=== PATIENT | male | born 1945 | race Caucasian/White ===

== ENCOUNTER 2021-01-31 11:05 | Outpatient (REF) | payer MEDICARE, SELFPAY ==
[2021-01-31 13:26] LABS: Blood Urea Nitrogen 45 mg/dL (9-16); Estimated Glomerular Filt Rate 37
== END 2021-01-31 11:06 | disposition home or self-care (01) ==
LOC: HO.LNP 11:05
PROVIDERS: Visit Provider Internal Medicine
DX: R79.89 Other specified abnormal findings of blood chemistry (principal)
CPT/HCPCS: 82565; 84520

== ENCOUNTER 2021-02-14 10:26 | Outpatient (REF) | payer MEDICARE, SELFPAY ==
[2021-02-14 11:58] LABS: Blood Urea Nitrogen 44 mg/dL (9-16); Estimated Glomerular Filt Rate 46
== END 2021-02-14 10:27 | disposition home or self-care (01) ==
LOC: HO.LNP 10:26
PROVIDERS: Visit Provider Internal Medicine
DX: R79.9 Abnormal finding of blood chemistry, unspecified (principal)
CPT/HCPCS: 82565; 84520

== ENCOUNTER 2021-03-18 10:28 | Outpatient (REF) | payer MEDICARE, SELFPAY ==
[2021-03-18 10:32] LABS: MANUAL DIFF FLAG NO
[2021-03-18 11:15] LABS: Basophils Percent Auto 0.6 % (0-2); Eosinophils Absolute Auto 0.2 X10*3/uL (0.0-0.4); Eosinophils Percent Auto 4.5 % (0-4); Hematocrit 33.3 % (42-52); Hemoglobin 10.7 g/dl (14.0-18.0); Imm Gran Abs Auto 0.02 X10*3/uL (0.00-0.03); Imm Gran Pct Auto 0.4 % (0.0-0.4); Lymphocytes Absolute Auto 0.7 X10*3/uL (1.2-4.9); Lymphocytes Percent Auto 13.9 % (20-40); Mean Corpuscular HGB Conc 32.1 g/dl (31.0-36.0); Mean Corpuscular Hemoglobin 26.7 pg (27.0-33.0); Mean Platelet Volume 11.4 fL (9.4-12.4); Monocytes Absolute Auto 0.5 X10*3/uL (0.1-1.2); Monocytes Percent Auto 9.2 % (2-11); Neutrophils Absolute Auto 3.8 X10*3/uL (2.0-8.3); Neutrophils Percent Auto 71.4 % (45-73); Platelet Count 165 X10*3/uL (160-400); Red Blood Count 4.01 X10*6/uL (4.60-5.80); Red Cell Distribution Width 15.9 % (11.0-16.0); White Blood Count 5.3 X10*3/uL (4.8-10.8)
[2021-03-18 11:54] LABS: Blood Urea Nitrogen 39 mg/dL (9-16); Estimated Glomerular Filt Rate 45; Iron 43 mcg/dL (45-160); Percent Iron Saturation 14 % (15-50); Total Iron Binding Capacity 312 mcg/dL (228-428); Unsaturated Iron Binding 269 ug/dL
== END 2021-03-18 10:29 | disposition home or self-care (01) ==
LOC: HO.LNP 10:28
PROVIDERS: Visit Provider Internal Medicine
DX: R79.89 Other specified abnormal findings of blood chemistry (principal); D50.9 Iron deficiency anemia, unspecified
CPT/HCPCS: 82565; 83540; 84520; 85025

== ENCOUNTER 2021-05-06 10:11 | Outpatient (REF) | payer MEDICARE, OTHER, SELFPAY ==
[2021-05-06 10:14] LABS: MANUAL DIFF FLAG NO
[2021-05-06 10:37] LABS: Basophils Percent Auto 0.5 % (0-2); Eosinophils Absolute Auto 0.3 X10*3/uL (0.0-0.4); Eosinophils Percent Auto 4.9 % (0-4); Hematocrit 35.5 % (42-52); Hemoglobin 11.1 g/dl (14.0-18.0); Imm Gran Abs Auto 0.02 X10*3/uL (0.00-0.03); Imm Gran Pct Auto 0.4 % (0.0-0.4); Lymphocytes Absolute Auto 0.9 X10*3/uL (1.2-4.9); Lymphocytes Percent Auto 16.8 % (20-40); Mean Corpuscular HGB Conc 31.3 g/dl (31.0-36.0); Mean Corpuscular Volume 86.4 fL (80-98); Monocytes Absolute Auto 0.4 X10*3/uL (0.1-1.2); Monocytes Percent Auto 7.9 % (2-11); Neutrophils Absolute Auto 3.9 X10*3/uL (2.0-8.3); Neutrophils Percent Auto 69.5 % (45-73); Platelet Count 166 X10*3/uL (160-400); Red Blood Count 4.11 X10*6/uL (4.60-5.80); Red Cell Distribution Width 15.9 % (11.0-16.0); White Blood Count 5.6 X10*3/uL (4.8-10.8)
[2021-05-06 11:18] LABS: Blood Urea Nitrogen 36 mg/dL (9-16); Estimated Glomerular Filt Rate 41; Iron 42 mcg/dL (45-160); Percent Iron Saturation 13 % (15-50); Total Iron Binding Capacity 322 mcg/dL (228-428); Unsaturated Iron Binding 280 ug/dL
== END 2021-05-06 10:12 | disposition home or self-care (01) ==
LOC: HO.LNP 10:11
PROVIDERS: Visit Provider Internal Medicine
DX: D50.9 Iron deficiency anemia, unspecified (principal)
CPT/HCPCS: 82565; 83540; 84520; 85025

== ENCOUNTER 2021-06-12 10:20 | Outpatient (REF) | payer MEDICARE, OTHER, SELFPAY ==
[2021-06-12 10:53] LABS: Alanine Aminotransferase 21 U/L (0-40); Albumin Level 4.2 g/dL (3.5-5.0); Alkaline Phosphatase 56 U/L (39-117); Aspartate Amino Transferase 15 U/L (5-37); Bilirubin Direct 0.2 mg/dL (0.0-0.5); Bilirubin Total 0.5 mg/dL (0.0-1.0); Cholesterol 106 mg/dL; HDL Cholesterol 40 mg/dL; LDL Cholesterol Calculated 50 mg/dl; Total Protein 6.3 g/dL (6.5-8.0); Triglycerides 81 mg/dL
== END 2021-06-12 10:21 | disposition home or self-care (01) ==
LOC: HO.LNP 10:20
PROVIDERS: Visit Provider Internal Medicine
DX: E78.00 Pure hypercholesterolemia, unspecified (principal); I10 Essential (primary) hypertension
CPT/HCPCS: 80061; 80076

== ENCOUNTER 2021-07-24 10:12 | Outpatient (REF) | payer MEDICARE, OTHER, SELFPAY ==
[2021-07-24 10:14] LABS: MANUAL DIFF FLAG NO
[2021-07-24 10:41] LABS: Basophils Percent Auto 0.5 % (0-2); Eosinophils Absolute Auto 0.3 X10*3/uL (0.0-0.4); Hematocrit 34.6 % (42-52); Hemoglobin 11.2 g/dl (14.0-18.0); Imm Gran Abs Auto 0.02 X10*3/uL (0.00-0.03); Imm Gran Pct Auto 0.4 % (0.0-0.4); Lymphocytes Percent Auto 18.5 % (20-40); Mean Corpuscular HGB Conc 32.4 g/dl (31.0-36.0); Mean Corpuscular Hemoglobin 28.2 pg (27.0-33.0); Mean Corpuscular Volume 87.2 fL (80-98); Monocytes Absolute Auto 0.5 X10*3/uL (0.1-1.2); Monocytes Percent Auto 8.6 % (2-11); Neutrophils Absolute Auto 3.6 X10*3/uL (2.0-8.3); Platelet Count 163 X10*3/uL (160-400); Red Blood Count 3.97 X10*6/uL (4.60-5.80); Red Cell Distribution Width 14.6 % (11.0-16.0); White Blood Count 5.5 X10*3/uL (4.8-10.8)
[2021-07-24 11:50] LABS: Blood Urea Nitrogen 35 mg/dL (9-16); Estimated Glomerular Filt Rate 45; Iron 44 mcg/dL (45-160); Percent Iron Saturation 16 % (15-50); Total Iron Binding Capacity 283 mcg/dL (228-428); Unsaturated Iron Binding 239 ug/dL
== END 2021-07-24 10:13 | disposition home or self-care (01) ==
LOC: HO.LNP 10:12
PROVIDERS: Visit Provider Internal Medicine
DX: N18.9 Chronic kidney disease, unspecified (principal); D50.9 Iron deficiency anemia, unspecified
CPT/HCPCS: 82565; 83540; 84520; 85025

== ENCOUNTER 2021-09-26 10:24 | Outpatient (REF) | payer MEDICARE, OTHER, SELFPAY ==
[2021-09-26 10:28] LABS: MANUAL DIFF FLAG NO
[2021-09-26 10:47] LABS: Basophils Percent Auto 0.5 % (0-2); Eosinophils Absolute Auto 0.4 X10*3/uL (0.0-0.4); Hematocrit 34.9 % (42.0-52.0); Hemoglobin 11.1 g/dl (14.0-18.0); Imm Gran Abs Auto 0.03 X10*3/uL (0.00-0.03); Imm Gran Pct Auto 0.5 % (0.0-0.4); Lymphocytes Absolute Auto 0.9 X10*3/uL (1.2-4.9); Lymphocytes Percent Auto 16.6 % (20-40); Mean Corpuscular HGB Conc 31.8 g/dl (31.0-36.0); Mean Corpuscular Hemoglobin 27.8 pg (27.0-33.0); Mean Corpuscular Volume 87.3 fL (80.0-98.0); Monocytes Absolute Auto 0.5 X10*3/uL (0.1-1.2); Monocytes Percent Auto 8.7 % (2-11); Neutrophils Absolute Auto 3.7 x10*3/uL (2.0-8.3); Neutrophils Percent Auto 66.7 % (45-73); Platelet Count 166 X10*3/uL (160-400); Red Cell Distribution Width 15.3 % (11.0-16.0); White Blood Count 5.5 X10*3/uL (4.8-10.8)
[2021-09-26 11:00] LABS: Blood Urea Nitrogen 44 mg/dL (9-16); Estimated Glomerular Filt Rate 43; Iron 34 mcg/dL (45-160); Percent Iron Saturation 12 % (15-50); Total Iron Binding Capacity 274 mcg/dL (228-428); Unsaturated Iron Binding 240 ug/dL
== END 2021-09-26 10:25 | disposition home or self-care (01) ==
LOC: HO.LNP 10:24
PROVIDERS: Visit Provider Internal Medicine
DX: N18.9 Chronic kidney disease, unspecified (principal); D50.9 Iron deficiency anemia, unspecified
CPT/HCPCS: 82565; 83540; 84520; 85025

== ENCOUNTER 2021-12-25 10:59 | Outpatient (REF) | payer MEDICARE, OTHER, SELFPAY ==
[2021-12-25 11:03] LABS: MANUAL DIFF FLAG NO
[2021-12-25 11:12] LABS: Basophils Percent Auto 0.4 % (0-2); Eosinophils Absolute Auto 0.3 X10*3/uL (0.0-0.4); Eosinophils Percent Auto 6.2 % (0-4); Hematocrit 37.3 % (42.0-52.0); Hemoglobin 11.7 g/dl (14.0-18.0); Imm Gran Abs Auto 0.02 X10*3/uL (0.00-0.03); Imm Gran Pct Auto 0.4 % (0.0-0.4); Lymphocytes Percent Auto 17.9 % (20-40); Mean Corpuscular HGB Conc 31.4 g/dl (31.0-36.0); Mean Corpuscular Hemoglobin 27.7 pg (27.0-33.0); Mean Corpuscular Volume 88.4 fL (80.0-98.0); Mean Platelet Volume 10.7 fL (9.4-12.4); Monocytes Absolute Auto 0.4 X10*3/uL (0.1-1.2); Neutrophils Absolute Auto 3.6 x10*3/uL (2.0-8.3); Neutrophils Percent Auto 67.1 % (45-73); Platelet Count 158 X10*3/uL (160-400); Red Blood Count 4.22 X10*6/uL (4.60-5.80); Red Cell Distribution Width 15.3 % (11.0-16.0); White Blood Count 5.4 X10*3/uL (4.8-10.8)
[2021-12-25 11:21] LABS: Appearance Urine CLEAR; Color Urine YELLOW; Glucose Urine UA >=1000 MG/DL (NEG); Leukocyte Esterase Urine NEG (NEG); Nitrite Urine NEG (NEG); Urine Blood NEG (NEG); Urine Ketones NEG (NEG); Urine Protein TRACE MG/DL (NEG-TRACE)
[2021-12-25 11:26] LABS: Alanine Aminotransferase 21 U/L (0-40); Albumin Level 4.2 g/dL (3.5-5.0); Alkaline Phosphatase 53 U/L (39-117); Anion Gap 10 (12-20); Aspartate Amino Transferase 15 U/L (5-37); Bilirubin Total 0.6 mg/dL (0.0-1.0); Blood Urea Nitrogen 49 mg/dL (9-16); Calcium 9.4 mg/dL (8.4-10.2); Carbon Dioxide 28 mmol/L (22-29); Chloride 109 mmol/L (96-108); Cholesterol 131 mg/dL; Estimated Glomerular Filt Rate 35; Glucose Fasting 106 mg/dL (60-99); HDL Cholesterol 37 mg/dL; Iron 61 mcg/dL (45-160); LDL Cholesterol Calculated 74 mg/dl; Percent Iron Saturation 20 % (15-50); Sodium 142 mmol/L (135-145); Total Iron Binding Capacity 298 mcg/dL (228-428); Total Protein 6.5 g/dL (6.5-8.0); Triglycerides 101 mg/dL; Unsaturated Iron Binding 237 ug/dL
[2021-12-25 11:36] LABS: Mucus Urine 1+ /LPF; RBC Urine 0 /HPF (0); Squamous Epithelial Cell Urine 1+ /LPF; WBC Urine 0 /HPF (0-4)
[2021-12-25 11:48] LABS: PSA,Total (Free>4and<10) 0.14 ng/mL (0.00-4.00)
== END 2021-12-25 11:00 | disposition home or self-care (01) ==
LOC: HO.LNP 10:59
PROVIDERS: PCP Internal Medicine; Visit Provider Internal Medicine
DX: E11.22 Type 2 diabetes mellitus with diabetic chronic kidney disease (principal); I12.9 Hypertensive chronic kidney disease with stage 1 through stage 4 chronic kidney disease, or unspecified chronic kidney disease; N18.9 Chronic kidney disease, unspecified; E78.00 Pure hypercholesterolemia, unspecified; D50.9 Iron deficiency anemia, unspecified; Z12.5 Encounter for screening for malignant neoplasm of prostate
CPT/HCPCS: 80053; 80061; 81001; 83540; 84153; 85025

== ENCOUNTER 2022-03-13 10:28 | Outpatient (REF) | payer MEDICARE, OTHER, SELFPAY ==
[2022-03-13 10:48] LABS: Blood Urea Nitrogen 41 mg/dL (9-16); Estimated Glomerular Filt Rate 37
== END 2022-03-13 10:29 | disposition home or self-care (01) ==
LOC: HO.LNP 10:28
PROVIDERS: Visit Provider Internal Medicine
DX: Z13.89 Encounter for screening for other disorder (principal)
CPT/HCPCS: 82565; 84520

== ENCOUNTER 2022-04-24 10:26 | Outpatient (REF) | payer MEDICARE, OTHER, SELFPAY ==
[2022-04-24 11:05] LABS: Blood Urea Nitrogen 45 mg/dL (9-16); Estimated Glomerular Filt Rate 37
== END 2022-04-24 10:27 | disposition home or self-care (01) ==
LOC: HO.LNP 10:26
PROVIDERS: Visit Provider Internal Medicine
DX: I48.0 Paroxysmal atrial fibrillation (principal); N18.9 Chronic kidney disease, unspecified; Z79.01 Long term (current) use of anticoagulants
CPT/HCPCS: 82565; 84520; 85610

== ENCOUNTER 2022-06-30 10:44 | Outpatient (REF) | payer MEDICARE, OTHER, SELFPAY ==
[2022-06-30 11:19] LABS: Estimated Average Glucose 100 mg/dL; Hemoglobin A1c % 5.1 %
[2022-06-30 11:29] LABS: Alanine Aminotransferase 20 U/L (0-40); Albumin Level 4.4 g/dL (3.5-5.0); Alkaline Phosphatase 58 U/L (39-117); Aspartate Amino Transferase 16 U/L (5-37); Bilirubin Direct 0.2 mg/dL (0.0-0.5); Bilirubin Total 0.5 mg/dL (0.0-1.0); Cholesterol 128 mg/dL; Glucose Fasting 102 mg/dL (60-99); HDL Cholesterol 39 mg/dL; LDL Cholesterol Calculated 72 mg/dl; Total Protein 6.5 g/dL (6.5-8.0); Triglycerides 85 mg/dL
[2022-06-30 12:42] LABS: Reflex LDLD? No
[2022-07-02 13:36] LABS: Blood Urea Nitrogen 34 mg/dL (9-16); Estimated Glomerular Filt Rate 37
== END 2022-06-30 10:45 | disposition home or self-care (01) ==
LOC: HO.LNP 10:44
PROVIDERS: Visit Provider Internal Medicine
DX: N18.30 Chronic kidney disease, stage 3 unspecified (principal); E78.00 Pure hypercholesterolemia, unspecified; E11.9 Type 2 diabetes mellitus without complications
CPT/HCPCS: 80061; 80076; 82565; 82947; 83036; 84520

== ENCOUNTER 2022-09-18 15:26 | Outpatient (REF) | payer MEDICARE, OTHER, SELFPAY ==
--- NOTE | ~2022-09-18 | XR_ITS ---
EXAMINATION: XR CHEST CLINICAL INFORMATION: Heart failure. Shortness of breath. COMPARISON: Previous chest x-ray most recent March 2018 TECHNIQUE: 2 views of the chest were obtained. FINDINGS: The cardiac silhouette is slightly enlarged. There may be pulmonary venous redistribution. No evidence of pulmonary edema. No pleural effusion. Degenerative changes of the spine. XR/XR chest 2V IMPRESSION: Enlarged cardiac silhouette and pulmonary venous redistribution. No evidence of pulmonary edema or pleural effusion.
== END 2022-09-18 15:27 | disposition home or self-care (01) ==
LOC: HO.XRAY 15:26
PROVIDERS: PCP Internal Medicine; Visit Provider Internal Medicine
DX: I50.22 Chronic systolic (congestive) heart failure (principal); R06.02 Shortness of breath
CPT/HCPCS: 71046

== ENCOUNTER 2022-09-24 10:39 | Outpatient (REF) | payer MEDICARE, OTHER, SELFPAY ==
[2022-09-24 11:01] LABS: Blood Urea Nitrogen 46 mg/dL (9-16); Estimated Glomerular Filt Rate 37
== END 2022-09-24 10:40 | disposition home or self-care (01) ==
LOC: HO.LNP 10:39
PROVIDERS: Visit Provider Internal Medicine
DX: N18.30 Chronic kidney disease, stage 3 unspecified (principal)
CPT/HCPCS: 82565; 84520

== ENCOUNTER 2022-10-12 11:27 | Outpatient (REF) | payer MEDICARE, OTHER, SELFPAY ==
[2022-10-12 12:54] LABS: Blood Urea Nitrogen 39 mg/dL (9-16); Estimated Glomerular Filt Rate 35
== END 2022-10-12 11:28 | disposition home or self-care (01) ==
LOC: HO.LNP 11:27
PROVIDERS: Visit Provider Internal Medicine
DX: N18.30 Chronic kidney disease, stage 3 unspecified (principal)
CPT/HCPCS: 82565; 84520

== ENCOUNTER 2022-11-19 10:50 | Outpatient (REF) | payer MEDICARE, OTHER, SELFPAY ==
[2022-11-19 11:19] LABS: Blood Urea Nitrogen 35 mg/dL (9-16); Estimated Glomerular Filt Rate 38
== END 2022-11-19 10:51 | disposition home or self-care (01) ==
LOC: HO.LNP 10:50
PROVIDERS: PCP Internal Medicine; Visit Provider Internal Medicine
DX: N18.9 Chronic kidney disease, unspecified (principal)
CPT/HCPCS: 82565; 84520

== ENCOUNTER 2022-12-31 10:48 | Outpatient (REF) | payer MEDICARE, OTHER, SELFPAY ==
[2022-12-31 11:13] LABS: MANUAL DIFF FLAG NO
[2022-12-31 11:37] LABS: Appearance Urine Clear; Color Urine Yellow; Glucose Urine UA 250 mg/dL (Negative); Leukocyte Esterase Urine Negative (Negative); Nitrite Urine Negative (Negative); PH 5.5 (5.0-9.0); Urine Blood Negative (Negative); Urine Ketones Negative (Negative); Urine Protein Negative (Neg-Trace)
[2022-12-31 11:44] LABS: Bacteria Urine None Seen (None Seen); Estimated Average Glucose 111 mg/dL; Hemoglobin A1c % 5.5 %; Hyaline Casts Urine 0-2 /LPF (0-2); RBC Urine 0-2 /HPF (0-2); Squamous Epithelial Cell Urine 0-2 /HPF (0-2); WBC Urine 0-5 /HPF (0-5)
[2022-12-31 11:46] LABS: Basophils Percent Auto 0.5 % (0-2); Eosinophils Absolute Auto 0.3 X10*3/uL (0.0-0.4); Eosinophils Percent Auto 5.8 % (0-4); Hematocrit 45.1 % (42.0-52.0); Hemoglobin 14.4 g/dl (14.0-18.0); Imm Gran Abs Auto 0.02 X10*3/uL (0.00-0.03); Imm Gran Pct Auto 0.3 % (0.0-0.4); Lymphocytes Absolute Auto 1.2 X10*3/uL (1.2-4.9); Lymphocytes Percent Auto 19.7 % (20-40); Mean Corpuscular HGB Conc 31.9 g/dl (31.0-36.0); Mean Corpuscular Hemoglobin 28.6 pg (27.0-33.0); Mean Corpuscular Volume 89.7 fL (80.0-98.0); Mean Platelet Volume 10.7 fL (9.4-12.4); Monocytes Absolute Auto 0.5 X10*3/uL (0.1-1.2); Monocytes Percent Auto 8.6 % (2-11); Neutrophils Absolute Auto 3.8 x10*3/uL (2.0-8.3); Neutrophils Percent Auto 65.1 % (45-73); Platelet Count 154 X10*3/uL (160-400); Red Blood Count 5.03 X10*6/uL (4.60-5.80); Red Cell Distribution Width 15.4 % (11.0-16.0); White Blood Count 5.8 X10*3/uL (4.8-10.8)
[2022-12-31 12:16] LABS: Alanine Aminotransferase 26 U/L (0-40); Albumin Level 4.2 g/dL (3.5-5.0); Alkaline Phosphatase 54 U/L (39-117); Anion Gap 14 (12-20); Aspartate Amino Transferase 17 U/L (5-37); Bilirubin Total 0.7 mg/dL (0.0-1.0); Blood Urea Nitrogen 46 mg/dL (9-16); Calcium 9.1 mg/dL (8.4-10.2); Carbon Dioxide 28 mmol/L (22-29); Chloride 109 mmol/L (96-108); Cholesterol 144 mg/dL; Estimated Glomerular Filt Rate 34; Glucose Fasting 111 mg/dL (60-99); HDL Cholesterol 49 mg/dL; Iron 63 mcg/dL (45-160); LDL Cholesterol Calculated 79 mg/dl; PSA,Total (Free>4and<10) 0.14 ng/mL (0.00-4.00); Percent Iron Saturation 23 % (15-50); Potassium 4.8 mmol/L (3.3-5.1); Sodium 146 mmol/L (135-145); Total Iron Binding Capacity 272 mcg/dL (228-428); Total Protein 6.4 g/dL (6.5-8.0); Triglycerides 81 mg/dL; Unsaturated Iron Binding 209 ug/dL
[2022-12-31 12:45] LABS: Creatinine Urine 29.94 mg/dL; Microalbum/Creatinine Ratio Ur 80.1 ug/mg cr
== END 2022-12-31 10:49 | disposition home or self-care (01) ==
LOC: HO.LNP 10:48
PROVIDERS: Visit Provider Internal Medicine
DX: E11.40 Type 2 diabetes mellitus with diabetic neuropathy, unspecified (principal); I48.0 Paroxysmal atrial fibrillation; E78.00 Pure hypercholesterolemia, unspecified; E11.22 Type 2 diabetes mellitus with diabetic chronic kidney disease; I13.0 Hypertensive heart and chronic kidney disease with heart failure and stage 1 through stage 4 chronic kidney disease, or unspecified chronic kidney disease; I50.22 Chronic systolic (congestive) heart failure; D50.9 Iron deficiency anemia, unspecified; N18.30 Chronic kidney disease, stage 3 unspecified; Z12.5 Encounter for screening for malignant neoplasm of prostate
CPT/HCPCS: 80053; 80061; 81001; 82043; 83036; 83540; 84153; 85025

== ENCOUNTER 2023-03-31 08:38 | Outpatient (REF) | payer MEDICARE, BC, SELFPAY ==
--- NOTE | 2023-03-31 08:43 | EMG_ITS ---
Please see scanned EMG / Nerve Conduction Report. MTDD
== END 2023-03-31 08:39 | disposition home or self-care (01) ==
LOC: HO.NEURO 08:38
PROVIDERS: Visit Provider Internal Medicine
DX: G56.01 Carpal tunnel syndrome, right upper limb (principal)
CPT/HCPCS: 95885; 95910

== ENCOUNTER 2023-04-08 11:11 | Outpatient (REF) | payer MEDICARE, OTHER, SELFPAY ==
[2023-04-08 12:44] LABS: Blood Urea Nitrogen 40 mg/dL (9-16); Estimated Glomerular Filt Rate 35
== END 2023-04-08 11:12 | disposition home or self-care (01) ==
LOC: HO.LNP 11:11
PROVIDERS: Visit Provider Internal Medicine
DX: N18.9 Chronic kidney disease, unspecified (principal)
CPT/HCPCS: 82565; 84520

== ENCOUNTER 2023-07-09 11:35 | Outpatient (REF) | payer MEDICARE, OTHER, SELFPAY ==
[2023-07-09 12:44] LABS: Cholesterol 128 mg/dL (<200); HDL Cholesterol 38 mg/dL (>40); LDL Cholesterol Calculated 69 mg/dL (<100); Triglycerides 105 mg/dL (<150)
[2023-07-09 12:48] LABS: Estimated Average Glucose 103 mg/dL; Hemoglobin A1c % 5.2 % (<6.0)
[2023-07-09 12:54] LABS: Alanine Aminotransferase 19 U/L (0-40); Albumin Level 4.2 g/dL (3.5-5.0); Alkaline Phosphatase 49 U/L (39-117); Aspartate Amino Transferase 16 U/L (5-37); Bilirubin Direct 0.2 mg/dL (0.0-0.5); Bilirubin Total 0.5 mg/dL (0.0-1.0); Glucose Fasting 108 mg/dL (60-99); Total Protein 6.5 g/dL (6.5-8.0)
[2023-07-09 16:33] LABS: Reflex LDLD? No
== END 2023-07-09 11:36 | disposition home or self-care (01) ==
LOC: HO.LNP 11:35
PROVIDERS: Visit Provider Internal Medicine
DX: E11.40 Type 2 diabetes mellitus with diabetic neuropathy, unspecified (principal); E78.00 Pure hypercholesterolemia, unspecified
CPT/HCPCS: 80061; 80076; 82947; 83036

== ENCOUNTER 2023-12-10 13:44 | Outpatient (REF) | payer MEDICARE, OTHER, SELFPAY ==
[2023-12-10 14:13] LABS: Appearance Urine Clear; Color Urine Yellow; Glucose Urine UA 250 mg/dL (Negative); Leukocyte Esterase Urine Negative (Negative); Nitrite Urine Negative (Negative); Urine Blood Negative (Negative); Urine Ketones Negative (Negative); Urine Protein Negative (Neg-Trace)
[2023-12-10 14:18] LABS: Bacteria Urine None Seen (None Seen); Hyaline Casts Urine 0-2 /LPF (0-2); RBC Urine 0-2 /HPF (0-2); Squamous Epithelial Cell Urine 0-2 /HPF (0-2); WBC Urine 0-5 /HPF (0-5)
== END 2023-12-10 13:45 | disposition home or self-care (01) ==
LOC: HO.LNP 13:44
PROVIDERS: Visit Provider Internal Medicine
DX: R31.9 Hematuria, unspecified (principal); R30.0 Dysuria; R35.0 Frequency of micturition
CPT/HCPCS: 81001; 87086

== ENCOUNTER 2024-01-20 11:42 | Outpatient (REF) | payer MEDICARE, OTHER, SELFPAY ==
[2024-01-20 12:17] LABS: Potassium 4.4 mmol/L (3.3-5.1)
== END 2024-01-20 11:43 | disposition home or self-care (01) ==
LOC: HO.LNP 11:42
PROVIDERS: Visit Provider Internal Medicine
DX: E87.5 Hyperkalemia (principal)
CPT/HCPCS: 84132

== ENCOUNTER 2024-03-14 11:06 | Outpatient (REF) | payer MEDICARE, OTHER, SELFPAY ==
[2024-03-14 11:53] LABS: Potassium 4.5 mmol/L (3.3-5.1)
== END 2024-03-14 11:07 | disposition home or self-care (01) ==
LOC: HO.LNP 11:06
PROVIDERS: Visit Provider Internal Medicine
DX: E87.5 Hyperkalemia (principal)
CPT/HCPCS: 84132

== ENCOUNTER 2024-03-15 08:57 | Outpatient (REF) | payer MEDICARE, OTHER, SELFPAY ==
--- NOTE | ~2024-03-15 | NM_ITS ---
EXAMINATION: NM BONE SCAN OF THE WHOLE BODY CLINICAL INFORMATION: History of prostate cancer. COMPARISON: No existing relevant imaging study available. TECHNIQUE: Multiple gamma scintillation camera images of the whole body were performed 3.25 hours following the intravenous administration of 36 mCi Tc-99m MDP. FINDINGS: In the head, no suspicious focal lesion. In the thoracic cage and upper extremities, no suspicious focal lesion. In the spine, no suspicious focal lesion. In the pelvis, no suspicious focal lesion. In the lower extremities, increased tracer avidity at both mid foot (left greater than right) likely represent posttraumatic and/or arthritic changes. No other definite bony abnormalities are noted. The urinary bladder and faint visualization of both kidneys are noted. NM/NM bone scan whole body IMPRESSION: No definite scintigraphic evidence of osseous metastasis. Follow-up PSMA PET CT scan however may be considered for further clarification, if clinically appropriate (more sensitive and specific).
== END 2024-03-15 08:58 | disposition home or self-care (01) ==
LOC: HO.MRI 08:57
PROVIDERS: PCP Internal Medicine; Visit Provider Internal Medicine
DX: K86.9 Disease of pancreas, unspecified (principal); Z85.46 Personal history of malignant neoplasm of prostate; M89.8X8 Other specified disorders of bone, other site
CPT/HCPCS: 78306; A9503

== ENCOUNTER 2024-07-07 11:10 | Outpatient (REF) | payer MEDICARE, OTHER, SELFPAY ==
[2024-07-07 11:36] LABS: Estimated Average Glucose 105 mg/dL; Hemoglobin A1c % 5.3 % (<6.0)
[2024-07-07 11:46] LABS: Alanine Aminotransferase 24 U/L (0-40); Alkaline Phosphatase 67 U/L (39-117); Aspartate Amino Transferase 18 U/L (5-37); Bilirubin Direct 0.2 mg/dL (0.0-0.5); Bilirubin Total 0.5 mg/dL (0.0-1.0); Cholesterol 120 mg/dL (<200); Glucose Fasting 97 mg/dL (60-99); HDL Cholesterol 40 mg/dL (>40); LDL Cholesterol Calculated 67 mg/dL (<100); Total Protein 6.4 g/dL (6.5-8.0); Triglycerides 65 mg/dL (<150)
[2024-07-07 14:20] LABS: Reflex LDLD? No
== END 2024-07-07 11:11 | disposition home or self-care (01) ==
LOC: HO.LNP 11:10
PROVIDERS: Visit Provider Internal Medicine
DX: E78.00 Pure hypercholesterolemia, unspecified (principal); E11.9 Type 2 diabetes mellitus without complications
CPT/HCPCS: 80061; 80076; 82947; 83036

== ENCOUNTER 2025-01-29 10:31 | Outpatient (REF) | payer MEDICARE, OTHER, SELFPAY ==
[2025-01-29 10:37] LABS: MANUAL DIFF FLAG NO
[2025-01-29 11:05] LABS: Appearance Urine Clear; Color Urine Yellow; Glucose Urine UA 500 mg/dL (Negative); Leukocyte Esterase Urine Negative (Negative); Nitrite Urine Negative (Negative); Specific Gravity - Urine 1.025 (1.005-1.025); UMIC TRIGGER UACC YES; Urine Blood Negative (Negative); Urine Ketones Trace mg/dL (Negative); Urine Protein 30 (1+) mg/dL (Neg-Trace)
[2025-01-29 11:07] LABS: Basophils Percent Auto 0.6 % (0-2); Eosinophils Absolute Auto 0.2 X10*3/uL (0.0-0.4); Eosinophils Percent Auto 2.4 % (0-4); Hematocrit 44.1 % (42.0-52.0); Hemoglobin 13.9 g/dl (14.0-18.0); Imm Gran Abs Auto 0.05 X10*3/uL (0.00-0.03); Imm Gran Pct Auto 0.7 % (0.0-0.4); Lymphocytes Absolute Auto 1.2 X10*3/uL (1.2-4.9); Lymphocytes Percent Auto 17.5 % (20-40); Mean Corpuscular HGB Conc 31.5 g/dl (31.0-36.0); Mean Corpuscular Hemoglobin 28.4 pg (27.0-33.0); Mean Corpuscular Volume 90.2 fL (80.0-98.0); Mean Platelet Volume 10.7 fL (9.4-12.4); Monocytes Absolute Auto 0.5 X10*3/uL (0.1-1.2); Monocytes Percent Auto 7.5 % (2-11); Neutrophils Absolute Auto 4.8 x10*3/uL (2.0-8.3); Neutrophils Percent Auto 71.3 % (45-73); Platelet Count 142 X10*3/uL (160-400); Red Blood Count 4.89 X10*6/uL (4.60-5.80); White Blood Count 6.8 X10*3/uL (4.8-10.8)
[2025-01-29 11:10] LABS: Bacteria Urine None Seen (None Seen); Hyaline Casts Urine 0-2 /LPF (0-2); RBC Urine 0-2 /HPF (0-2); Squamous Epithelial Cell Urine 0-2 /HPF (0-2); WBC Urine 0-5 /HPF (0-5)
[2025-01-29 11:41] LABS: PSA,Total (Free>4and<10) 0.14 ng/mL (0.00-4.00)
[2025-01-29 12:39] LABS: Alanine Aminotransferase 22 U/L (0-40); Albumin Level 4.1 g/dL (3.5-5.0); Alkaline Phosphatase 57 U/L (39-117); Anion Gap 13 (12-20); Aspartate Amino Transferase 17 U/L (5-37); Bilirubin Total 0.5 mg/dL (0.0-1.0); Blood Urea Nitrogen 51 mg/dL (9-16); Calcium 8.8 mg/dL (8.4-10.2); Carbon Dioxide 27 mmol/L (22-29); Chloride 112 mmol/L (96-108); Cholesterol 141 mg/dL (<200); Estimated Glomerular Filt Rate 36; Glucose Fasting 99 mg/dL (60-99); HDL Cholesterol 46 mg/dL (>40); LDL Cholesterol Calculated 83 mg/dL (<100); Potassium 4.7 mmol/L (3.3-5.1); Sodium 147 mmol/L (135-145); Total Protein 6.7 g/dL (6.5-8.0); Triglycerides 62 mg/dL (<150)
== END 2025-01-29 10:32 | disposition home or self-care (01) ==
LOC: HO.LNP 10:31
PROVIDERS: Visit Provider Internal Medicine
DX: E11.22 Type 2 diabetes mellitus with diabetic chronic kidney disease (principal); I12.9 Hypertensive chronic kidney disease with stage 1 through stage 4 chronic kidney disease, or unspecified chronic kidney disease; N18.30 Chronic kidney disease, stage 3 unspecified; E78.00 Pure hypercholesterolemia, unspecified; Z12.5 Encounter for screening for malignant neoplasm of prostate
CPT/HCPCS: 80053; 80061; 81001; 84153; 85025

== ENCOUNTER 2025-08-10 10:32 | Outpatient (REF) | payer MEDICARE, OTHER, SELFPAY ==
--- OUTSIDE RECORDS SUMMARY | 2023-12-16 20:00 | XMS_ITS | Continuity of Care Document ---
Author Organization [facility] [employer] [facility] Address [address] [place] [phone] Phone Care Team Providers Care Patrol Deputy Sheriff Name Role Phone Bridger VILLANUEVA, Lui Unavailable Unavailable Procedures Procedure Date PRQ CARD STENT W/ANGIO 1 VSL CORONARY ANGIO W/LEFT HEART CATH 2023 CORONARY ANGIO W/LEFT HEART CATH 2023 INTRAVASC US, HEART ADD-ON MODERATE SEDATION 10-22 MIN PRQ CARD STENT W/ANGIO 1 VSL ECHO 2D W/DOPPLER INITIAL HOSPITAL CARE SUBSEQUENT HOSPITAL CARE SUBSEQUENT HOSPITAL CARE ECHO 2D W/DOPPLER STRESS ECHO INCL STRESS TEST OFFICE/OUTPATIENT VISIT, EST CHEST X-RAY ELECTROCARDIOGRAM, COMPLETE OFFICE/OUTPATIENT VISIT, EST ECHO 2D W/DOPPLER OFFICE/OUTPATIENT VISIT, NEW ELECTROCARDIOGRAM, COMPLETE ECG MONITOR/REPORT, 24 HRS HEART IMAGE (3D), MULTIPLE HEART WALL MOTION ADD-ON HEART FUNCTION ADD-ON CARDIOVASCULAR STRESS TEST CARDIOVASCULAR STRESS TEST Advance Directives Directive Yes / No Effective Date File Name No Information Encounters Encounter Description Practice Location Reason(s) For Visit Diagnoses Date Provider Providers Copied on Encounter [facility], [address] [place] [address], [id number], [place] tel:[phone] [facility] IP No Information Bridger Poe. [address] [place] [address], [id number], [place]. tel:[phone] Referring Provider: Lui See, [address] [place] [address], [address] [place] [address] . tel:[phone] [facility], [address] [place] [address], [id number], [place] tel:[phone] [facility] IP No Information Elidia Viveros. [address] [place] [address], [id number], [place]. tel:[phone] Referring Provider: José Miguel Velez, [address] [place], [address]. tel:[phone] [facility]IAL [facility] CARE [facility], [address] [place] [address], [id number], [place] tel:[phone] [facility] IP No Information Aries Charles. [address] [place] [address], [id number], [place]. tel:[phone] Referring Provider: José Miguel Velez, [address] [place], [address]. tel:[phone] [facility] Heart [employer] [facility], [address] [place] [address], [id number], [place] tel:[phone] [facility] IP No Information Alok Salas. [address] [place] [address], [id number], [place]. tel:[phone] Referring Provider: Paramjit Arita, [facility] [address], [place], [address]. tel:[phone] [facility], [address] [place] [address], [id number], [place] tel:[phone] [facility] No Information Jessica Trevino. [address] [place] [address], [id number], . tel:[phone] Referring Provider: Shasta Mcclellan, [address] [place], [address]. tel:[phone] OFFICE/OUTPAT IENT VISIT, [facility], [address] [place] [address], [id number], [place] tel:[phone] Main Office No Information No Information OFFICE/OUTPAT IENT VISIT, [facility], [address] [place] [address], [id number], tel:[phone] Main Office No Information Miguel Samayoa. [address] [place] [address], [id number], [place]. tel:[phone] Referring Provider: Danita Rivera, [address] [place] [address], [id number]. tel:[phone] [facility], [address] [place] [address], [id number], [place] tel:[phone] [facility] No Information Vitor Carbajal. [address] [place] [address], [id number], [place]. tel:[phone] OFFICE/OUTPAT IENT VISIT, [facility], [address] [place] [address], [id number], [place] tel:[phone] Main Office No Information No Information Referring Provider: Shasta Mcclellan, [address] [place], [address]. tel:[phone] [facility], [address] [place] [address], [id number], [place] tel:[phone] Main Office No Information No Information Referring Provider: Shasta Mcclellan, [address] [place], [address]. tel:[phone] [facility], [facility], [address] [place] [address], [id number], tel:[phone] [facility] OP No Information Haresh Carbajal. [address] [place] [address], [id number], . tel:[phone] Referring Provider: Darvin Stokes, [address] [facility], [place], [address]. tel:[phone] Family History Family Member Type Diagnosis Age At Onset No Information Payers Payer name Insurance type Covered green party ID Authoriza tion(s) [place] Medicare Part B Cl aims Primary MB [id number] [facility] Insurance [id number] Social History Type Description Quantity Date Captured Comments Sex Male Smoking Status No Information Chief Complaint And Reason For Visit No Information Reason For Referral Reason For Referral No Information History Of Present Illness Encounter Date Complaint History Of Prese nt Illness No Information Functional Status Date Functional Assessmen t No Information Instructions Date Instruction Additional Infor mation No Information Assessments Type Assessment Date No Information Patient Care Teams Name Effective Dates (start - stop) Status Members No Information
--- OUTSIDE RECORDS SUMMARY | 2025-06-11 07:20 | XMS_ITS ---
Author Organization Domenic Beckham MD Address [address] [place] [phone] Care Team Providers Care Driver Trainee Name Role Phone Domenic Beckham Primary Care Provider [phone] REASON FOR VISIT CXR Encounters Encounter Location Date Provider Diagnosis Domenic Beckham MD [address] [place] [phone] 06/11/2025 Domenic Beckham Pneumonia J18.9 Assessments Encounter Date Diagnosis (ICD Code) Assessment Notes Treatment Notes Treatment Clinical Notes Section Notes 06/11/2025 Pneumonia (ICD-10 - J18.9) Order made and mailed to the patient to be done in 1 week. Plan Of Treatment Treatment Notes Assessment Notes Pneumonia Order made and salo d to the patient to be done in 1 week. Pending Test Test Name Order Date XR chest 2V 06/11/2025 Next Appt Details Provider Name:Domenic Devine ier, 10/26/2025 10:00:00 AM, [address], [address], [place], [id number], Provider Name:Domenic Devine ier, 02/04/2026 08:00:00 AM, [address], [address], [place], [place], [id number], Provider Name:Domenic Devine ier, 02/11/2026 02:30:00 PM, [address], [address], [place], [place], [phone], Progress Notes * Owen LICEA ADOB:1945 (80 yo M)Acc No.[id number]:06/11/2025 Patient: Owen COTTER :1945 A ge:80 Y S ex:Male Address:[address] [place] [address] [place] [address] Subjective: * Chief Complaints: * C XR * Medical History: * Surgical History: * Hospitalization/Major Diagno stic Procedure: * Medications: Objective: * Vitals: * Physical Examination: Assessment: * Assessment: 1. Vahid shore - J18.9 Plan: * Treatment: * Procedure Codes: * true * Date: Generated for Benigno coelho/Bernardo/eTanderssmitting on: 0 08/10/2025 12:02 PM EDT
--- OUTSIDE RECORDS SUMMARY | 2025-06-14 12:27 | XMS_ITS ---
Author Organization Domenic Beckham MD Address [address] [place] [phone] Care Team Providers Care Delivery Lead Name Role Phone Domenic Beckham Primary Care Provider [phone] REASON FOR VISIT Chest Xray Encounters Encounter Location Date Provider Diagnosis Domenic Beckham MD [address] [place], [place] [phone] 06/14/2025 Domenic Beckham Plan Of Treatment Next Appt Details Provider Name:Domenic garcia, 10/26/2025 10:00:00 AM, [address], [address], [place], [place], [phone], Provider Name:Domenic garcia, 02/04/2026 08:00:00 AM, [address], [address], [place], [place], [phone], Provider Name:Domenic Devine jose, 02/11/2026 02:30:00 PM, [address], [address], [place], [place], [phone], Progress Notes * Owen LICEA ADOB:1945 (80 yo M)Acc No.[id number]:06/14/2025 Patient: Owen COTTER A :1945 A ge:80 Y S ex:Male Address:[address] [facility] [place] [address] * true * Date: Generated for Benigno coelho/Bernardo/Inezsmitting on: 0 08/10/2025 12:03 PM EDT
--- OUTSIDE RECORDS SUMMARY | 2025-06-15 10:15 | XMS_ITS ---
Author Organization Domenic Beckham MD Address [address] [place] [phone] Care Team Providers Care Head Waitress Name Role Phone Domenic Beckham Primary Care Provider Allergies Allergen (clinical drug ingredient) Drug/Non Drug Allergy documented on EMR Reaction Allergy Type Onset Date Status seasonal allergies; pollen and molds, cats (uncoded) sneezing; itchy watery eyes Allergy Active Results Component Value Reference Range Notes Glucose, finger stick Reviewed date:06/15/2025 02:15:52 PM Interpretation: Performing Lab: Notes/Report: Value 114 REASON FOR VISIT F/U ERV Pneumonia Medications Medication SIG (Take, Route, Frequency, Duration) Notes Start Date End Date Status Combivent Respimat 20-100 MCG/ACT 1 puff Inhalation Four times a day Not-Taking Fluticasone Propionate 50 MCG/ACT INHALE 2 SPRAYS NASALLY EVERY DAY DIRECTED for 29 Not-Taking Furosemide 40 MG 1 tablet Orally Once a day Active Amiodarone HCl 200 MG 1 tablet Orally On ce a day Active Synjardy XR 12.5-1000 MG 1 tab Orally On ce a day Active Cyclobenzaprine HCl 10 MG 1 tablet as ne eded Orally Three times a day for 10 days Not-Taking Ibuprofen 800 MG 1 tablet as needed Orally TID Not-Taking Ondansetron 4 MG 1 tablet on the ue and allow to dissolve Orally Once a day Not-Taking Vitamin D 1000 UNIT 1 tablet Orally Once a day Not-Taking Atorvastatin Calcium 40 MG TAKE 1 TABLET BY MOUTH EVERY DAY for 90 Active Iron 325 (65 Fe) MG 1 tablet Once a day Active Lisinopril 5 MG TAKE 1 TABLET BY LESTER TH EVERY DAY Active Warfarin Sodium 5 MG TAKE 2 TABLETS BY MOUTH EVERY DAY Active Ventolin HFA 108 (90 Base) MCG/ACT 1 puff as needed Inhalation every 4 hrs for 30 days 05/25/2025 Active Furosemide 20 MG TAKE 2 TABLETS BY MOUTH EVERY DAY for 90 Active Gabapentin 300 MG TAKE 2 CAPSULES BY MOUTH AT BEDTIME ORALLY ONCE A DAY 90 DAYS for 90 Active Ventolin HFA 108 (90 Base) MCG/ACT INHALE 2 PUFFS BY MOUTH EVERY 4-6 HOURS NEEDED for 17 Active Benefiber - 1 tablespoon in 8 ounces of water Orally once a day Active Metoprolol Succinate ER 25 MG 1 tablet Orally Once a day Active Magnesium 250 MG 1 tablet with a meal Orally Once a day Active Mupirocin 2 % 1 application Externally Twice a day for 5 day(s) Active Vitamin B Complex-C 500 mgs as directed Orally Active Clobetasol Propionate 0.05 % 1 application Externally Twice a day for 10 day(s) Active Vitamin C 500 MG 2 tablets Orally onc e a day Active Problems Problem Type SNOMED Code ICD Code Onset Dates Problem Status W/U Status Risk Notes Problem Congestive heart failure (22520653) CHF (congestive heart failure) (I50.9) Active confirmed Vital Signs Blood pressure systolic 122 mm Hg 06/15/20 25 Blood pressure diastolic 74 mm Hg 025 Height 66.5 in 06/15/2025 Weight 217 lbs 06/15/2025 BMI 34.5 kg/m2 06/15/2025 weight is dwn 13 pounds [facility] e 05-10-25 Encounters Encounter Location Date Provider Diagnosis Domenic Beckham MD [address] [place] [phone] 06/15/2025 Domenic Beckham Type 2 diabetes mellitus with diabetic neuropathy E11.40 ; CHF (congestive heart failure) I50.9 and Back pain M54.9 Assessments Encounter Date Diagnosis (ICD Code) Assessment Notes Treatment Notes Treatment Clinical Notes Section Notes 06/15/2025 Type 2 diabetes mellitus with diabetic neuropathy (ICD-10 - E11.40) 06/15/2025 CHF (congestive heart failure) (ICD-10 - I50.9) is doing well at present. will go back to his previous dose of lasix 06/15/2025 Back pain (ICD-10 - M54.9) is going to get an injection in spine soon Plan Of Treatment Medication Medication Name Sig Start Date Stop Date Notes Furosemide 40 MG 1 tablet Orally Once a day Amiodarone HCl 200 MG 1 tablet Orally Once a day Synjardy XR 12.5-1000 MG 1 tab Orally Once a day Treatment Notes Assessment Notes CHF (congestive heart failure) is doing well at present. will go back to his previous dose of lasix Back pain is going to get an i njection in spine soon Next Appt Details Provider Name:Domenic garcia, 10/26/2025 10:00:00 AM, [address] [place] [address], [address], [phone], Provider Name:Domenic garcia, 02/04/2026 08:00:00 AM, [address] [place] [address], [address], [phone], Provider Name:Domenic garcia, 02/11/2026 02:30:00 PM, [address] [place] [address], [phone], Progress Notes * Owen LICEA ADOB:1945 (80 yo M)Acc No.[id number]:06/15/2025 Progress Notes Patient: Owen COTTER Provider: Sybil Beckham MD :1945 A ge:80 Y S ex:Male Date:06/15/2025 Address:[address], [facility] Subjective: * Chief Complaints: * F /U ERV Pneumonia * HPI: S ymptom(s): patient is a 80 yo male here for followup from recent ER visit. * ROS: G eneral/Constitutional: Denies C hills. D enies F atigue. D enies F ever. D enies H eadache. E NT: Denies S ore throat. R espiratory: Denies C hest pain. A dmits C ough. A dmits?Shortness of breath at rest. A dmits S hortness of breath with exertion. G astrointestinal: Denies D iarrhea. D enies N ausea. * Medical History: * Surgical History: * Hospitalization/Major Diagno stic Procedure: * Medications: T akingFurosemide 40 MG Tablet 1 tablet Orally Once a day Mupirocin 2 % Ointment 1 application Externally Twice a day Clobetasol Propionate 0.05 % Cream 1 application Externally Twice a day Vitamin B Complex-C 500 mgs Capsule as directed Orally Vitamin C 500 MG Tablet 2 tablets Orally once a day Magnesium 250 MG Tablet 1 tablet with a meal Orally Once a day Benefiber - Powder 1 tablespoon in 8 ounces of water Orally once a day Ventolin HFA 108 (90 Base) MCG/ACT Aerosol Solution INHALE 2 PUFFS BY MOUTH EVERY 4-6 HOURS NEEDED Metoprolol Succinate ER 25 MG Tablet Extended Release 24 Hour 1 tablet Orally Once a day Synjardy XR 12.5-1000 MG Tablet Extended Release 24 Hour 1 tab Orally Once a day Gabapentin 300 MG Capsule TAKE 2 CAPSULES BY MOUTH AT BEDTIME ORALLY ONCE A DAY 90 DAYS Amiodarone HCl 200 MG Tablet 1 tablet Orally Once a day Iron 325 (65 Fe) MG Tablet 1 tablet Once a day Warfarin Sodium 5 MG Tablet TAKE 2 TABLETS BY MOUTH EVERY DAY Lisinopril 5 MG Tablet TAKE 1 TABLET BY MOUTH EVERY DAY Furosemide 20 MG Tablet TAKE 2 TABLETS BY MOUTH EVERY DAY Ventolin HFA 108 (90 Base) MCG/ACT Aerosol Solution 1 puff as needed Inhalation every 4 hrs Atorvastatin Calcium 40 MG Tablet TAKE 1 TABLET BY MOUTH EVERY DAY Taking Furosemide 40 MG Tablet 1 tablet Orally Once a day Taking Mupirocin 2 % Ointment 1 application Externally Twice a day Taking Clobetasol Propionate 0.05 % Cream 1 application Externally Twice a day Taking Vitamin B Complex-C 500 mgs Capsule as directed Orally Taking Vitamin C 500 MG Tablet 2 tablets Orally once a day Taking Magnesium 250 MG Tablet 1 tablet with a meal Orally Once a day Taking Benefiber - Powder 1 tablespoon in 8 ounces of water Orally once a day Taking Ventolin HFA 108 (90 Base) MCG/ACT Aerosol Solution INHALE 2 PUFFS BY MOUTH EVERY 4-6 HOURS NEEDED Taking Metoprolol Succinate ER 25 MG Tablet Extended Release 24 Hour 1 tablet Orally Once a day Taking Synjardy XR 12.5-1000 MG Tablet Extended Release 24 Hour 1 tab Orally Once a day Taking Gabapentin 300 MG Capsule TAKE 2 CAPSULES BY MOUTH AT BEDTIME ORALLY ONCE A DAY 90 DAYS Taking Amiodarone HCl 200 MG Tablet 1 tablet Orally Once a day Taking Iron 325 (65 Fe) MG Tablet 1 tablet Once a day Taking Warfarin Sodium 5 MG Tablet TAKE 2 TABLETS BY MOUTH EVERY DAY Taking Lisinopril 5 MG Tablet TAKE 1 TABLET BY MOUTH EVERY DAY Taking Furosemide 20 MG Tablet TAKE 2 TABLETS BY MOUTH EVERY DAY Taking Ventolin HFA 108 (90 Base) MCG/ACT Aerosol Solution 1 puff as needed Inhalation every 4 hrs Taking Atorvastatin Calcium 40 MG Tablet TAKE 1 TABLET BY MOUTH EVERY DAY Not-Taking/PRNVitamin D 1000 UNIT Tablet 1 tablet Orally Once a day Ondansetron 4 MG Tablet Disintegrating 1 tablet on the tongue and allow to dissolve Orally Once a day Ibuprofen 800 MG Tablet 1 tablet as needed Orally TID Cyclobenzaprine HCl 10 MG Tablet 1 tablet as needed Orally Three times a day Fluticasone Propionate 50 MCG/ACT Suspension INHALE 2 SPRAYS NASALLY EVERY DAY DIRECTED Combivent Respimat 20- 100 MCG/ACT Aerosol Solution 1 puff Inhalation Four times a day Medication List reviewed and reconciled with the patientNot-Taking/PRN Vitamin D 1000 UNIT Tablet 1 tablet Orally Once a day Not-Taking/PRN Ondansetron 4 MG Tablet Disintegrating 1 tablet on the tongue and allow to dissolve Orally Once a day Not-Taking/PRN Ibuprofen 800 MG Tablet 1 tablet as needed Orally TID Not-Taking/PRN Cyclobenzaprine HCl 10 MG Tablet 1 tablet as needed Orally Three times a day Not-Taking/PRN Fluticasone Propionate 50 MCG/ACT Suspension INHALE 2 SPRAYS NASALLY EVERY DAY DIRECTED Not-Taking/PRN Combivent Respimat 20-100 MCG/ACT Aerosol Solution 1 puff Inhalation Four times a day Medication List reviewed and reconciled with the patient * Allergies: s easonal allergies; pollen and molds, cats: sneezing; itchy watery eyesyes[Allergies Verified] Objective: * Vitals: H t: 66.5, Wt: 217, BMI:34.5, BP:122/74, Wt-k.43. weight is dwn 13 pounds since 05-10-25. * Examination: G eneral Examination: GENERAL APPEARANCE: a lert, well hydrated, in no distress, male. HEAD: n ormocephalic. SKIN: g ood turgor. HEART: r egular rate and rhythm, no murmurs, rubs, gallops.? LUNGS: n o wheezes, rales, rhonchi, good air movement, clear to auscultation bilaterally. Assessment: * Assessment: 1. T ype 2 diabetes mellitus with diabetic neuropathy - E11.40 (Primary) 2 .?CHF (congestive heart failure) - I50.9 3 . B ack pain - M54.9 ? Plan: * Treatment: Value Reference Range V alue 114 2.?CHF (congestive heart failure)? Continue Furosemide Tablet, 40 MG, 1 tablet, Orally, Once a day;?Continue Amiodarone HCl Tablet, 200 MG, 1 tablet, Orally, Once a day.?? Notes: is doing well at present. will go back to his previous dose of lasix?? 3.?Back pain? Notes: is going to get an injection in spine soon?? * Procedure Codes: 8 2947 ASSAY, GLUCOSE, BLOOD QUANT, Modifiers: QW G2211 Complex e/m visit add on * * Sign off status: Completed true * Provider: Sybil Beckham MD Date: 0 06/15/2025 Generated for Meghanni meliton/Bernardo/eTransmitting on: 0 08/10/2025 12:03 PM EDT History and Physical Notes * HPI (History of Present Illness) Category Sub-Category Detail Notes Category Not es Symptom(s) patient is a 80 yo male here for followup from recent ER visit Examination Category Sub-Category Detail Notes Category Not es General Examination GENERAL APPEARANCE: alert, w ell hydrated, in no distress, male HEAD: normocephalic HEART: regular rate and rhy thm, no murmurs, rubs, gallops LUNGS: no wheezes, rales, r honchi, good air movement, clear to auscultation bilaterally SKIN: good turgor
--- OUTSIDE RECORDS SUMMARY | 2025-06-23 14:42 | XMS_ITS ---
Author Organization Domenic Beckham MD Address [address] [place] [phone] Care Team Providers Care Hunting Sales Associate Name Role Phone Domenic Beckham Primary Care Provider REASON FOR VISIT Colonoscopy Encounters Encounter Location Date Provider Diagnosis Domenic Beckham MD [address] [place] [phone] 06/23/2025 Domenic Beckham Plan Of Treatment Next Appt Details Provider Name:Domenic garcia, 10/26/2025 10:00:00 AM, [address], [address] [facility], [place], [place], [phone], Provider Name:Domenic garcia, 02/04/2026 08:00:00 AM, [address], [address], [place], [place], [phone], Provider Name:Domenic Vahid Nilson garcia, 02/11/2026 02:30:00 PM, [address], [address], [place], [phone], Progress Notes * Owen LICEA ADOB:1945 (80 yo M)Acc No.[id number]:06/23/2025 Patient: Bruna Owen LYNN :1945 A ge:80 Y S ex:Male Address:[address] [facility] [place] [address] * true * Date: Generated for Benigno coelho/Bernardo/Inezsmitting on: 0 08/10/2025 12:00 PM EDT
--- OUTSIDE RECORDS SUMMARY | 2025-08-09 06:00 | XMS_ITS ---
Author Organization [facility] Address [address] [address] Care Team Providers Care Papier Mache' Molder Name Role Phone Domenic Beckham MD Primary Care Provider Nandini Diaz Unavailable [phone] Martin, Jorge Unavailable Unavailable Allergies No Known Allergies REASON FOR VISIT new left forearm ulcers Medications Medication SIG (Take, Route, Frequency, Duration) Notes Start Date End Date Status Warfarin Sodium 2 MG 1 tablet Orally Onc e a day; Duration: 30 day(s) 08/15/2024 Active Metoprolol Succinate 25 MG 1 capsule Ora lly Once a day; Duration: 30 day(s) 08/15/2024 Active Lisinopril 20 MG 1 tablet Orally Once a day; Duration: 30 day(s) 08/15/2024 Active Atorvastatin Calcium 10 MG 1 tablet Oral ly Once a day; Duration: 30 day(s) 08/15/2024 Active Ventolin HFA 108 (90 Base) MCG/ACT 1 puff as needed Inhalation every 4 hrs 08/15/2024 Active Gabapentin 100 MG 1 capsule Orally Onc e a day; Duration: 30 day(s) 08/15/2024 Active Fluticasone Propionate 50 MCG/ACT 1 spray in each nostril Nasally Once a day; Duration: 30 day(s) 08/15/2024 Active Triamcinolone Acetonide 0.1 % 1 application Externally Two times a Week 08/15/2024 Active Lasix 40 MG 1 tablet Orally Once a day Active Problems Problem Type SNOMED Code ICD Code Onset Dates Problem Status W/U Status Risk Notes Problem Chronic ulcer of skin (55853315) 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) Active confirmed Vital Signs Temperature 97.4 degrees Fahrenheit 08/09/20 Blood pressure systolic 140 mm Hg 08/09/20 Blood pressure diastolic 70 mm Hg 025 Heart Rate 70 /min 08/09/2025 Respiratory Rate 18 /min 08/09/2025 Height 5 ft 9 in in 08/09/2025 Weight 215 lbs 08/09/2025 BMI 31.75 kg/m2 08/09/2025 Oximetry 97 % 08/09/2025 Height-cm 175.26 cm 08/09/2025 Weight-kg 97.52 kg 08/09/2025 Encounters Encounter Location Date Provider Diagnosis [facility] [address] [place] [address] 08/09/2025 Nandini Hadley Type 2 diabetes mellitus E11.9 ; Non-pressure chronic ulcer of skin of other sites with fat layer exposed L98.492 ; Non-pressure 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 I reviewed his vital signs which were stable. He was afebrile. I looked at the left forearm where two isolated, nummular ulcers where located on his previous visit. I did not appreciate hematoma, erythema, edema, warmth or streaking of the left forearm. The wounds were healed without evidence of drainage and progressing towards contracture. Owen has healed left forearm ulcers associated with warfarin use that have healed with proper debridement and topical dressing changes. He will apply zinc oxide paste to the healed areas for three additional days and protect the healed tissue from UV sunlight. I recommended he continue proper hygiene and tight glycemic control. He will return to wound care on an as needed basis. Nandini Ngo PA-C, examined, evaluated and treated the patient under the supervision of Will Norton MD, who was available for any questions or concerns that I may have had. 08/09/2025 Venous insufficiency (chronic) (peripheral) (ICD-10 - I87.2) 08/09/2025 Lymphedema (ICD-10 - I89.0) Plan Of Treatment Treatment Notes Assessment Notes Non-pressure chronic ulcer o f other part of left lower leg with fat layer exposed He awaits vascular studies that were ordered by at his last follow-up appointment. I reviewed his vital signs which were stable. He was afebrile. I looked at the left forearm where two isolated, nummular ulcers where located on his previous visit. I did not appreciate hematoma, erythema, edema, warmth or streaking of the left forearm. The wounds were healed without evidence of drainage and progressing towards contracture. Owen has healed left forearm ulcers associated with warfarin use that have healed with proper debridement and topical dressing changes. He will apply zinc oxide paste to the healed areas for three additional days and protect the healed tissue from UV sunlight. I recommended he continue proper hygiene and tight glycemic control. He will return to wound care on an as needed basis. Nandini Ngo PA-C, examined, evaluated and treated the patient under the supervision of Will Norton MD, who was available for any questions or concerns that I may have had. Next Appt Details Follow Up: prn, Reason: Progress Notes * Owen CANNONDOB:1945 ( 80 yo M)Acc No.[id number]:08/09/2025 Follow-Up Visit Patient: Owen COTTER Provider: ARTI Bruce :1945 A ge:80 Y S ex:Male Date:08/09/2025 Address:[address] [place] [address], [id number] Pcp:Domenic Beckham MD Subjective: * Chief Complaints: * 1 . New left forearm ulcers. * HPI: W ound Care: [id number]: Owen returns after two ulcers developed on his left arm of unclear etiology. He denies associated rash, mouth sores or other open areas on the skin. His chronic leg ulcers are not open per his report. He denies trauma and insect but thinks it may have started from small hematomas while on warfarin. He tried Aquacel and Xeroform without improvement and called us to evaluate. [id number]: He is here today with a new ulcer on the left oquendo that developed with some bleeding one month ago and never healed. He has been applying aquacel ag and using juxtalitesbut he has trouble tightening them at the ankle because it is hard to reach. 79 year old male sent by dermatology for nonhealing left leg/ankle ulcer since June without antecedent trauma reported. Tried mupirocin, clobetasol and nongraduated compression with some improvement. He developed cellulitis and needed antibiotics in order to resolve. Ankle ulcers have since resolved and new areas on the oquendo developed. He is responding well to Xeroform. He has non-insulin dependent diabetes and is not regularly checking his blood sugars. He is on Coumadin for atrial fibrillation. He is followed by vascular surgery. Venous ultrasound results from [facility] as summarized below: Lower extremity arterial duplex on 11JUL2024 showed no significant stenosis. 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 Galvan's note, with follow up recommended December - January 2025. * ROS: G eneral / Constitutional: Patient denies f ever, chills, wound redness. ? A llergy / Immunology: Patient denies r anusha and itching. E ndocrine: Comments b lood sugars are well contolled. P eripheral Vascular: Comments n o leg ulcers, happy with edema control using juxtalite compression. * Medical History: A sthma, Unspecified atrial fibrillation, Type 2 diabetes mellitus, Elevated blood-pressure reading, without diagnosis of hypertension, Hypercholesterolemia, COPD, mild, PVD (peripheral vascular disease). * Medications: T aking Lasix 40 MG Tablet 1 tablet Orally Once a day , Taking Triamcinolone Acetonide 0.1 % Cream 1 application Externally Two times a Week , Taking Fluticasone Propionate 50 MCG/ACT Suspension 1 spray in each nostril Nasally Once a day , Taking Ventolin HFA 108 (90 Base) MCG/ACT Aerosol Solution 1 puff as needed Inhalation every 4 hrs , Taking Atorvastatin Calcium 10 MG Tablet 1 tablet Orally Once a day , Taking Lisinopril 20 MG Tablet 1 tablet Orally Once a day , Taking Metoprolol Succinate 25 MG Capsule ER 24 Hour Sprinkle 1 capsule Orally Once a day , Taking Warfarin Sodium 2 MG Tablet 1 tablet Orally Once a day , Taking Gabapentin 100 MG Capsule 1 capsule Orally Once a day , Medication List reviewed and reconciled with the patient * Allergies: N .K.D.A. Objective: * Vitals: B P:140/70mm Hg, HR:70/min, RR:18/min, Temp:97.4F, Oxygen sat %:97%, Wt:215lbs, Wt-k.52 kg, Ht: 5 ft 9 in, Ht-cm: 175.26 cm, BMI: 31.75 Index, Pain scale: 0 1-10, Body Surface Area: 2.18. * Examination: W ound Assessment: Wound Number: # 8. Wound Encounter: Drayn greenberg. Wound Location: L eft arm. Wound Type: N on-Thermal Blister. Date Acquired: D ate Acquired: 07/06/2025. Wound Pre-Measurement: 0 cm length x 0cm width x 0cm depth.? Wound Tunneling/Undermining: N o. Wound Status: R esolved. C linician: JILL Sweeney econd clinician. [facility]. No m edication changes, n o upcoming appts. PA evaluated the wound Wound resolved. Assessment: * Assessment: 1. N on-pressure chronic ulcer of skin of other sites with fat layer exposed - L98.492 (Primary) 2 . T ype 2 diabetes mellitus - E11.9 3 . N on-pressure chronic ulcer of other part of left lower leg with fat layer exposed - L97.822 4 . Venous insufficiency (chronic) (peripheral) - I87.2 5 . L ymphedema - I89.0? Plan: * Treatment: * Follow Up: p rn * Billing Information: * Visit Code: 18338 Office Visit, Est Pt., Level 2. * Procedure Codes: Images * Examination/Wound Assessment /Wound Number:/[id number] * Sign off status: Completed true * Provider: ARTI Bruce Date: 08/09/2025 Generated for Meghanni meliton/Bernardo/eTransmitting on: 08/10/2025 12:03 PM EDT History and Physical Notes * HPI (History of Present Illness) Category Sub-Category Detail Notes Category Not es Wound Care [id number]: Owen returns after two ulcers developed on his left arm of unclear etiology. He denies associated rash, mouth sores or other open areas on the skin. His chronic leg ulcers are not open per his report. He denies trauma and insect but thinks it may have started from small hematomas while on warfarin. He tried Aquacel and Xeroform without improvement and called us to evaluate. [id number]: He is here today with a new ulcer on the left oquendo that developed with some bleeding one month ago and never healed. He has been applying aquacel ag and using juxtalitesbut he has trouble tightening them at the ankle because it is hard to reach. 79 year old male sent by dermatology for nonhealing left leg/ankle ulcer since June without antecedent trauma reported. Tried mupirocin, clobetasol and nongraduated compression with some improvement. He developed cellulitis and needed antibiotics in order to resolve. Ankle ulcers have since resolved and new areas on the oquendo developed. He is responding well to Xeroform. He has non-insulin dependent diabetes and is not regularly checking his blood sugars. He is on Coumadin for atrial fibrillation. He is followed by vascular surgery. Venous ultrasound results from [facility] as summarized below: Lower extremity arterial duplex on 11JUL2024 showed no significant stenosis. 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 Galvan's note, with follow up recommended December - January 2025. Examination Category Sub-Category Detail Notes Category Not es Wound Assessment Wound Number: #8 Wound Encounter: Subsequent Wound Location: Left arm Wound Type: Non-Thermal Blister Wound Pre-Measurement: 0cm length x 0cm width x 0cm depth Wound Tunneling/Undermining: No Wound Status: Resolved Date Acquired: Date Acquired: 2024 Clinician Johnie Lan LPN Second clinician Randi Looney LPN Patient is here for a follow up appt. No medication changes, no upcoming appts. PA evaluated the wound Wound resolved
--- OUTSIDE RECORDS SUMMARY | 2025-08-10 04:15 | XMS_ITS ---
Author Organization Domenic Beckham MD Address [address] [place] [id number] Care Team Providers Care Blower Insulator Name Role Phone Domenic Beckham Primary Care Provider [phone] Results Component Value Reference Range Notes PSA,Total (Free>4and<10) (No t yet reviewed by provider) Interpretation: Performing Lab:[facility], [address] [place] [id number] Notes/Report: PSA,Total (Free>4and<10) 0.13 0.00-4.00 ng/mL A Free PSA was not performed: The percentage of Free PSA can be used to enhance the differentiation of prostate cancer from benign prostatic disease in subjects whose PSA levels are between 4.0 and 10.0 ng/mL. For subjects whose PSA levels are below 4.0 or above 10.0 ng/mL, the risk of prostate cancer is determined on the basis of the PSA alone. Therefore the % Free PSA is recommended only for those subjects whose PSA levels are between 4.0 and 10.0 ng/mL. PSA methodology: Coto Alinity i Chemiluminescent Microparticle Immunoassay (CMIA) REASON FOR VISIT FASTING LIPIDS AND PSA Encounters Encounter Location Date Provider Diagnosis Domenic Beckham MD [address] [place] [id number] 08/10/2025 Domenic Beckham Pure hypercholestero lemia E78.00 and Elevated PSA R97.20 Assessments Encounter Date Diagnosis (ICD Code) Assessment Notes Treatment Notes Treatment Clinical Notes Section Notes 08/10/2025 Pure hypercholesterolemia (ICD-10 - E78.00) 08/10/2025 Elevated PSA (ICD-10 - R97.20) Plan Of Treatment Pending Test Test Name Order Date Liver Panel 08/10/2025 Lipid Panel with Reflex 08/10/2025 PSA,Total (Free>4and<10) 08/10/2025 Next Appt Details Provider Name:Domenic garcia, 10/26/2025 10:00:00 AM, [address] [place] [address], [id number], Provider Name:Domenic garcia, 02/04/2026 08:00:00 AM, [address] [place] [address], [id number], Provider Name:Domenic garcia, 02/11/2026 02:30:00 PM, [address] [place] [address], [id number], Progress Notes * Owen LICEA ADOB:1945 (80 yo M)Acc No.[id number]:08/10/2025 Progress Note Patient: Owen COTTER Provider: Sybil Beckham MD :1945 A ge:80 Y S ex:Male Date:08/10/2025 Address:[address] [place], [place] [id number] Subjective: * Chief Complaints: * 1 . FASTING LIPIDS AND PSA. * Medical History: Objective: * Vitals: Assessment: * Assessment: 1. P ure hypercholesterolemia - E78.00 (Primary) 2 . E levated PSA - R97.20? Plan: * Treatment: 2. E levated PSA L AB: Liver Panel L AB: Lipid Panel with Reflex L AB: PSA,Total (Free>4and<10) (Collection Date & Time - 08/10/2025 08:15 AM) * Procedure Codes: 3 6415 VENIPUNCT, ROUTINE* * * The named appointment provid er may or may not be the originator of this progress note, and it is not deemed complete until electronically signed by the appointment provider. Sign off status: Pending * Provider: Sybil Beckham MD Date: 0 08/10/2025 Generated for Benigno coelho/Bernardo/Marilynitting on: 0 08/10/2025 12:04 PM EDT
[2025-08-10 11:17] LABS: Alanine Aminotransferase 26 U/L (0-40); Albumin Level 4.6 g/dL (3.5-5.0); Alkaline Phosphatase 70 U/L (39-117); Aspartate Amino Transferase 20 U/L (5-37); Cholesterol 134 mg/dL (<200); HDL Cholesterol 42 mg/dL (>40); Total Protein 6.8 g/dL (6.5-8.0); Triglycerides 68 mg/dL (<150)
[2025-08-10 11:36] LABS: PSA,Total (Free>4and<10) 0.13 ng/mL (0.00-4.00)
--- OUTSIDE RECORDS SUMMARY | 2025-08-10 12:00 | XMS_ITS | Encounter Summary ---
Author Organization [facility] Address [address] [place] [address] Phone Care Team Providers Care Returned Telephone Equipment Appraiser Name Role Phone Domenic Beckham MD Primary Care Provider Leonor Frias RN Unavailable [phone] Alexandra Noonan RN Unavailable [phone] Encounter Details Date Type Department Care Team (Late st Contact Info) Description 07/05/2023 Procedure Pass [facility] @ [address] [address] Social History Tobacco Use Types Packs/Day Years Used Date Smoking Tobacco: Never Smokeless Tobacco: Never Alcohol Use Standard Drinks/Week Comments Yes 1 (1 standard drink = 0.6 oz pur e alcohol) Occasionally Education Answer Date Recorded Are you interested in more education? Not on shon e 03/12/2023 Are you concerned about learning? Not on file 03/12/2023 No 03/12/2023 No 03/12/2023 Digital Access Answer Date Recorded No 04/07/2023 No 04/07/2023 Reliable internet access at home? Not on file 04/07/2023 Device with a working camera? Not on file Sex and Gender Information Value Date Recorded Sex Assigned at Male 03/05/2020 7:20 PM EDT Legal Sex Male 10:10 PM EDT Gender Identity Male 03/05/2020 7:20 PM EDT Sexual Orientation Straight 08/26/2023 12 :53 PM EDT documented as of this encounter Plan of Treatment Upcoming Encounters Date Type Department Care Team (Late st Contact Info) Description 08/15/2025 9:20 AM EDT Office Visit [facility] [address] [place] [address] [place] [address] Domenic Beckham MD [address] [place] [address] [address] documented as of this encounter Visit Diagnoses Not on filedocumented in this encounter Care Teams Returned Telephone Equipment Appraiser Relationship Specialty Start Date End Date Domenic Beckham MD [address] [place] [address] [address] PCP - General 09/02/17 Leonor Frias RN [address] [place] [address] Registered Nurse 04/22/20 01/18/24 Alexandra Noonan RN [address] [place] [address] Registered Nurse 01/19/24 documented as of this encounter Additional Source Comments The information contained in this document represents components of the legal health record. It is not the complete legal health record.[facility]
--- OUTSIDE RECORDS SUMMARY | 2025-08-10 12:01 | XMS_ITS | Encounter Summary ---
Author Organization [facility] Address [address] [place] [address] Phone Care Team Providers Care Central Lab Technician Name Role Phone Domenic Beckham MD Primary Care Provider Alexandra Noonan RN Unavailable [phone] Encounter Details Date Type Department Care Team (Late st Contact Info) Description 06/14/2025 Ancillary Orders [facility], X-Ray - [address] [place] [address] Domenic Beckham MD [address] [place] [address] [facility] [place] [address] Unresolved pneumonia (Primary Dx) Social History Tobacco Use Types Packs/Day Years Used Date Smoking Tobacco: Never Smokeless Tobacco: Never Alcohol Use Standard Drinks/Week Comments Yes 1 (1 standard drink = 0.6 oz pur e alcohol) Occasionally Home Health Assessment: Transportation Answer Date Recorded Lack of Transportation (Medical) No 05/11/2024 Lack of Transportation (Non-Medical) No 05/11/2024 Patient Unable or Declines to Respond No 05/11/2024 Education Answer Date Recorded Are you interested in more education? Not on shon e 03/12/2023 Are you concerned about learning? Not on file 03/12/2023 No 03/12/2023 No 03/12/2023 Digital Access Answer Date Recorded No 04/07/2023 No 04/07/2023 Reliable internet access at home? Not on file 04/07/2023 Device with a working camera? Not on file Intimate Partner Violence Answer Date R ecorded Are you denied basic needs s uch as food, clothing, or medical care? No 06/10/2025 In the past 12 months have y ou been in a relationship with a person who hurts, threatens, or tries to control you? No 06/10/2025 Are you denied basic needs s uch as food, clothing, or medical care? No 06/10/2025 In the past 12 months have y ou been in a relationship with a person who hurts, threatens, or tries to control you? No 06/10/2025 Sex and Gender Information Value Date Recorded [...] EDT Office Visit [facility] [address] [place] [address] [place] [address] Domenic Beckham MD [address] [place] [address] [place] [address] documented as of this encounter Results * XR CHEST PA AND LATERAL 2 VIEWS (06/14/2025 12:45 PM EDT) Anatomical Region Laterality Modality Chest Computed Radiogr aphy 06/14/2025 12:5 2 PM EDT Impressions 06/14/2025 12:57 PM EDT No evidence of pneumonia or pulmonary edema. Narrative 06/14/2025 12:57 PM EDT XR CHEST PA AND LATERAL 2 VIEWS Referring clinician's provided indication for this examination in Epic: Pneumonia COMPARISON: XR CHEST 1 VIEW ; XR CHEST PA AND LATERAL 2 VIEWS FINDINGS: Devices/Tubes/Lines: Left-sided cardiac pacemaker with lead projecting at the right ventricle. Lungs: No focal consolidation or pulmonary edema. Pleura: No pleural effusion or pneumothorax. Heart/Mediastinum: Cardiac silhouette and mediastinal contours are within normal limits. Prominent pericardial fat pads. Bones/Soft Tissues: No acute osseous finding. Partially visualized upper abdomen: Unremarkable. Procedure Note Jackeline Najera MD - 06/14/2025 XR CHEST PA AND LATERAL 2 VIEWS Referring clinician's provided indication for this examination in [facility]:Pneumonia COMPARISON: XR CHEST 1 VIEW ; XR CHEST PA AND LATERAL 2 [id number] FINDINGS: Devices/Tubes/Lines: Left-sided cardiac pacemaker with lead projecting atthe right ventricle. Lungs: No focal consolidation or pulmonary edema. Pleura: No pleural effusion or pneumothorax. Heart/Mediastinum: Cardiac silhouette and mediastinal contours are withinnormal limits. Prominent pericardial fat pads. Bones/Soft Tissues: No acute osseous finding. Partially visualized upper abdomen: Unremarkable. IMPRESSION: No evidence of pneumonia or pulmonary edema. Domenic Beckham MD IMG XR CHEST Final R esult documented in this encounter Visit Diagnoses Diagnosis Unresolved pneumonia- Primary Pneumonia, organism unspecified Unresolved pneumonia Pneumonia, organism unspecified documented in this encounter Additional Health Concerns Assessment Noted Time PHQ-9 Depression Total Score: 9 04/21/20 24 2:53 PM EDT documented as of this encounter Care Teams Central Lab Technician Relationship Specialty Start Date End Date Domenic Beckham MD [address] [place] [address] [place] [address] PCP - General 09/02/17 Alexandra Noonan, RN [address] [place] [address] Registered Nurse 01/19/24 documented as of this encounter Additional Source Comments The information contained in this document represents components of the legal health record. It is not the complete legal health record.[facility]
--- OUTSIDE RECORDS SUMMARY | 2025-08-10 12:01 | XMS_ITS | Encounter Summary ---
Author Organization [facility] Address [address] [place] [address] Phone Care Team Providers Care Home Health Clinical Supervisor Name Role Phone Domenic Beckham MD Primary Care Provider Leonor Frias RN Unavailable [phone] Alexandra Noonan RN Unavailable [phone] Encounter Details Date Type Department Care Team (Late st Contact Info) Description 09/21/2023 Procedure Pass [facility] [address] [place] [address] Social History Tobacco Use Types Packs/Day Years [...] AM EDT Office Visit [facility] [address] [place] [address] Domenic Beckham MD [address] [place] [address] [place] [address] documented as of this encounter Visit Diagnoses Not on filedocumented in this encounter Care Teams Home Health Clinical Supervisor Relationship Specialty Start Date End Date Domenic Beckham MD [address] [place] [address] [place] [address] PCP - General 09/02/17 Leonor Frias, RN [address] [place] [address] Registered Nurse 04/22/20 01/18/24 Alexandra Noonan RN [address] [place] [address] Registered Nurse 01/19/24 documented as of this encounter Additional Source Comments The information contained in this document represents components of the legal health record. It is not the complete legal health record.[facility]
--- OUTSIDE RECORDS SUMMARY | 2025-08-10 12:01 | XMS_ITS | Encounter Summary ---
Author Organization [facility] Address [address] [facility] [address] [place] [address] Phone Care Team Providers Care Biodiesel Plant Superintendent Name Role Phone Domenic Beckham MD Primary Care Provider Leonor Frias RN Unavailable [phone] Alexandra Noonan RN Unavailable [phone] Encounter Details Date Type Department Care Team (Late st Contact Info) Description 03/11/2020 Transcribe Orders [facility] [address] [place] [address] Domenic Beckham MD [address] [place] [address] [place] [address] Anemia, unspecified type (Primary Dx) Social History Tobacco Use Types Packs/Day Years Used Date Smoking Tobacco: Never Smokeless Tobacco: Never Alcohol Use Standard Drinks/Week Comments Not Currently 1 (1 standard drink = 0.6 oz pur e alcohol) Occasionally Sex and Gender Information Value Date Recorded [...] EDT Office Visit [facility] [address] [place] [address] [place] [address] Domenic Beckham MD [address] [place] [address] Dr AmayayokeCHRISTOPHER [address] documented as of this encounter Results * (ABNORMAL) CBC and differential (03/11/2020 2:28 PM EDT) WBC 5.35 4.00 - 11.00 K/uL [facility] Comment:Note Reference Range updates to all CBC and Differential results. RBC 2.96(L) 3.90 - 5.69 M/uL [facility] HGB 7.8(L) 12.4 - 17.3 g/dL [facility] Comment:Note updated Referen ce Ranges for all CBC and Differential results. HCT 24.9(L) 37.0 - 51.0 % [facility] PLT 152 140 - 430 K/uL [facility] MCV 84.1 78.0 - 97.0 fL [facility] MCH 26.4 25.0 - 33.0 pg [facility] MCHC 31.3(L) 32.0 - 36.0 g/dL [facility] RDW 16.0(H) 11.0 - 15.0 % [facility] MPV 11.4 8.4 - 12.8 fl [facility] NRBC 0.00 0 /100 WBCs [facility] ABSOLUTE NRBC 0.00 0 K/uL [facility] DIFF METHOD Auto [facility] NEUTS 65.3 43.0 - 75.0 % [facility] LYMPHS 16.1(L) 18.2 - 47.4 % [facility] MONOS 11.0 4.00 - 11.00 % [facility] EOS 6.4 0.0 - 8.0 % [facility] BASOS 0.6 0.0 - 2.0 % [facility] Granulocytes, immature (%) 0.6 0.0 - 0.9 % [facility] ABSOLUTE NEUTS 3.50 1.80 - 7.70 K/uL [facility] ABSOLUTE LYMPHS 0.86(L) 1.00 - 3.10 K/uL [facility] ABSOLUTE MONOS 0.59 0.20 - 0.80 K/uL [facility] ABSOLUTE EOS 0.34 0.00 - 0.80 K/uL [facility] ABSOLUTE BASOS 0.03 0.00 - 0.09 K/uL [facility] Granulocytes, immature 0.03 0.00 - 0.05 K/uL [facility] Blood 03/11/2020 2:28 PM EDT 03/11/2020 2:30 PM EDT us Domenic Beckham MD LAB BLOOD ORDERABLES Fi nal Result [address] [address] documented in this encounter Visit Diagnoses Diagnosis Anemia, unspecified type- Primary documented in this encounter Additional Health Concerns Infection Onset Date Last Indicated Resolved Time CoV-Risk 05/10/2020 05/13/2020 05/16/2020 4:06 PM EDT documented as of this encounter Care Teams Biodiesel Plant Superintendent Relationship Specialty Start Date End Date Domenic Beckham MD [address] [place] [address] [place] [address] PCP - General 09/02/17 Leonor Frias RN [address] [place] [address] Registered Nurse 04/22/20 01/18/24 Alexandra Noonan RN [address] [place] [address] Registered Nurse 01/19/24 documented as of this encounter Additional Source Comments The information contained in this document represents components of the legal health record. It is not the complete legal health record.[facility]
--- OUTSIDE RECORDS SUMMARY | 2025-08-10 12:01 | XMS_ITS | Encounter Summary ---
Author Organization [facility] Address [address] [facility] [address] [place] [address] Phone Care Team Providers Care Vice President Mission Integration Name Role Phone Domenic Beckham MD Primary Care Provider Leonor Frias RN Unavailable [phone] Alexandra Noonan RN Unavailable [phone] Encounter Details Date Type Department Care Team (Late st Contact Info) Description 03/07/2020 Procedure Pass [facility] Endoscopy Admitting Dept Virtual Department [address] [place] [address] [phone] Social History Tobacco Use Types Packs/Day Years [...] Description 08/15/2025 9:20 AM EDT Office Visit [facility] [address] [place] [address] Dr Samuel [place] [phone] Domenic Beckham MD [address] [place] [address] [place] [address] documented as of this encounter Visit Diagnoses Not on filedocumented in this encounter Additional Health Concerns Infection Onset Date Last Indicated Resolved Time CoV-Risk 05/10/2020 05/13/2020 05/16/2020 4:06 PM EDT documented as of this encounter Care Teams Vice President Mission Integration Relationship Specialty Start Date End Date Domenic Beckham MD [address] [place] [address] [place] [address] PCP - General 09/02/17 Leonor Frias RN [address] [place] [address] [email or web address] Registered Nurse 04/22/20 01/18/24 Alexandra Noonan RN [address] [place] [address] Registered Nurse 01/19/24 documented as of this encounter Additional Source Comments The information contained in this document represents components of the legal health record. It is not the complete legal health record.[facility]
--- OUTSIDE RECORDS SUMMARY | 2025-08-10 12:01 | XMS_ITS | Encounter Summary ---
Author Organization [facility] Address [address] [facility] [address] [place] [address] Phone Care Team Providers Care Traffic Chief Name Role Phone Domenic Beckham MD Primary Care Provider Leonor Frias RN Unavailable [phone] Alexandra Noonan RN Unavailable [phone] Encounter Details Date Type Department Care Team (Latest Contact Info) Description 03/14/2020 Transcribe Orders [facility] [address] [place] [address] Domenic Beckham MD [address] [place] [address] Dr ESPANA [place], [place] [phone] Lower gastrointestinal bleeding (Primary Dx); Anemia, unspecified type Social History Tobacco Use Types Packs/Day Years [...] EDT Office Visit [facility] [address] [place] [address] [place] [address] Domenic Beckham MD [address] [place] [address] [place] [address] documented as of this encounter Results * (ABNORMAL) CBC and differential (03/14/2020 11:46 AM EDT) WBC 6.00 4.00 - 11.00 K/uL [facility] Comment:Note Reference Range updates to all CBC and Differential results. RBC 3.15(L) 3.90 - 5.69 M/uL [facility] HGB 8.3(L) 12.4 - 17.3 g/dL [facility] Comment:Note updated Referen ce Ranges for all CBC and Differential results. HCT 26.5(L) 37.0 - 51.0 % [facility] PLT 154 140 - 430 K/uL [facility] MCV 84.1 78.0 - 97.0 fL [facility] MCH 26.3 25.0 - 33.0 pg [facility] MCHC 31.3(L) 32.0 - 36.0 g/dL [facility] RDW 16.1(H) 11.0 - 15.0 % [facility] MPV 10.9 8.4 - 12.8 fl [facility] NRBC 0.00 0 /100 WBCs [facility] ABSOLUTE NRBC 0.00 0 K/uL [facility] DIFF METHOD Auto [facility] NEUTS 67.4 43.0 - 75.0 % [facility] LYMPHS 15.8(L) 18.2 - 47.4 % [facility] MONOS 10.5 4.00 - 11.00 % [facility] EOS 5.5 0.0 - 8.0 % [facility] BASOS 0.5 0.0 - 2.0 % [facility] Granulocytes, immature (%) 0.3 0.0 - 0.9 % [facility] ABSOLUTE NEUTS 4.04 1.80 - 7.70 K/uL [facility] ABSOLUTE LYMPHS 0.95(L) 1.00 - 3.10 K/uL [facility] ABSOLUTE MONOS 0.63 0.20 - 0.80 K/uL [facility] ABSOLUTE EOS 0.33 0.00 - 0.80 K/uL [facility] ABSOLUTE BASOS 0.03 0.00 - 0.09 K/uL [facility] Granulocytes, immature 0.02 0.00 - 0.05 K/uL [facility] Blood 03/14/2020 11:4 6 AM EDT 03/14/2020 11:49 AM EDT us Domenic Beckham MD LAB BLOOD ORDERABLES Fi nal Result [address] [address] documented in this encounter Visit Diagnoses Diagnosis Lower gastrointestinal bleeding- Primary Unspecified, hemorrhage of gastrointestinal tract Anemia, unspecified type documented in this encounter Additional Health Concerns Infection Onset Date Last Indicated Resolved Time CoV-Risk 05/10/2020 05/13/2020 05/16/2020 4:06 PM EDT documented as of this encounter Care Teams Traffic Chief Relationship Specialty Start Date End Date Domenic Beckham MD [address] [place] [address] Dr MEDELLIN [address] [place] [address] PCP - General 09/02/17 Leonor Frias RN [address] [place] [address] Registered Nurse 04/22/20 01/18/24 Alexandra Noonan RN [address] [place] [address] Registered Nurse 01/19/24 documented as of this encounter Additional Source Comments The information contained in this document represents components of the legal health record. It is not the complete legal health record.[facility]
--- OUTSIDE RECORDS SUMMARY | 2025-08-10 12:01 | XMS_ITS | Encounter Summary ---
Author Organization [facility] Address [address] [address] Phone Care Team Providers Care Business Case Analyst Name Role Phone Domenic Beckham MD Primary Care Provider Leonor Frias RN Unavailable [phone] Alexandra Noonan RN Unavailable [phone] Reason for Referral * Consultation (Elective) - Closed Specialty Diagnoses / Procedures Referred By Contac t Referred To Contact Diagnoses Atrial fibrillation, unspecified type Domenic Beckham MD [address] [place] [address] [place] [address] Phone: tel: fax: [facility] [address] [place] [address] Phone: tel: Referral ID Status Reason Start Date Expiration Date Visits Re quested Visits Authorized [id number] Closed 05/15/2021 05/15/2022 1 1 Encounter Details Date Type Department Care Team (Late st Contact Info) Description 05/15/2021 Transcribe Orders [facility] Department [address] [place] [address] Domenic Beckham MD [address] [place] [address] [place] [address] Atrial fibrillation, unspecified type (Primary Dx) Social History Tobacco [...] Description 08/15/2025 9:20 AM EDT Office Visit [facility] [address] [place] [address] [place] [address] Domenic Beckham MD [address] [place] [address] [place] [address] Scheduled Referrals Name Type Priority Associated Diagnoses Order Schedule Ambulatory referral to [facility] Anticoagulation Clinic Outpatient Referral Routine Atrial fibrillation, unspecified type Ordered: 05/15/2021 documented as of this encounter Visit Diagnoses Diagnosis Atrial fibrillation, unspecified type- Primary documented in this encounter Care Teams Business Case Analyst Relationship Specialty Start Date End Date Domenic Beckham MD [address] [place] [address] [place] [address] PCP - General 09/02/17 Leonor Frias RN [address] [place] [address] Registered Nurse 04/22/20 01/18/24 Alexandra Noonan RN [address] [place] [address] Registered Nurse 01/19/24 documented as of this encounter Additional Source Comments The information contained in this document represents components of the legal health record. It is not the complete legal health record.[facility]
--- OUTSIDE RECORDS SUMMARY | 2025-08-10 12:01 | XMS_ITS | Encounter Summary ---
Author Organization [facility] Address [address] [facility] [address] [place] [address] Phone Care Team Providers Care Chemical Radiation Technician Name Role Phone Domenic Beckham MD Primary Care Provider Leonor Frias RN Unavailable [phone] Alexandra Noonan RN Unavailable [phone] Encounter Details Date Type Department Care Team (Late st Contact Info) Description 03/18/2020 Transcribe Orders [facility] [address] [place] [address] Domenic Beckham MD [address] [place] [address] [place] [address] Hypouricemia (Primary Dx) Social History Tobacco Use Types [...] EDT Office Visit [facility] [address] [place] [address] [place] [address] Domenic Beckham MD [address] [place] [address] Dr AmayayoCHRISTOPHER [place]illas [address] documented as of this encounter Results * (ABNORMAL) CBC and differential (03/18/2020 2:29 PM EDT) WBC 4.98 4.00 - 11.00 K/uL [facility] Comment:Note Reference Range updates to all CBC and Differential results. RBC 3.08(L) 3.90 - 5.69 M/uL [facility] HGB 8.2(L) 12.4 - 17.3 g/dL [facility] Comment:Note updated Referen ce Ranges for all CBC and Differential results. HCT 26.0(L) 37.0 - 51.0 % [facility] PLT 180 140 - 430 K/uL [facility] MCV 84.4 78.0 - 97.0 fL [facility] MCH 26.6 25.0 - 33.0 pg [facility] MCHC 31.5(L) 32.0 - 36.0 g/dL [facility] RDW 15.6(H) 11.0 - 15.0 % [facility] MPV 11.1 8.4 - 12.8 fl [facility] NRBC 0.00 0 /100 WBCs [facility] ABSOLUTE NRBC 0.00 0 K/uL [facility] DIFF METHOD Auto [facility] NEUTS 64.5 43.0 - 75.0 % [facility] LYMPHS 19.9 18.2 - 47.4 % [facility] MONOS 9.4 4.00 - 11.00 % [facility] EOS 5.0 0.0 - 8.0 % [facility] BASOS 0.8 0.0 - 2.0 % [facility] Granulocytes, immature (%) 0.4 0.0 - 0.9 % [facility] ABSOLUTE NEUTS 3.21 1.80 - 7.70 K/uL [facility] ABSOLUTE LYMPHS 0.99(L) 1.00 - 3.10 K/uL [facility] ABSOLUTE MONOS 0.47 0.20 - 0.80 K/uL [facility] ABSOLUTE EOS 0.25 0.00 - 0.80 K/uL [facility] ABSOLUTE BASOS 0.04 0.00 - 0.09 K/uL [facility] Granulocytes, immature 0.02 0.00 - 0.05 K/uL [facility] Blood 03/18/2020 2:29 PM EDT 03/18/2020 2:31 PM EDT us Domenic Beckham MD LAB BLOOD ORDERABLES Fi nal Result Performing Organization Address City/[facility]/ZIP Co de Phone Number [address] [address] * (ABNORMAL) Iron and iron binding capacity (03/18/2020 2:29 PM EDT) IRON 35(L) 45 - 160 ug/dL [facility] IRON BINDING CAPACITY 313 228 - 428 ug/dL [facility] TRANSFERRIN SATURAT. 11(L) 20 - 55 % [facility] Blood 03/18/2020 2:29 PM EDT 03/18/2020 2:31 PM EDT us Domenic Beckham MD LAB BLOOD ORDERABLES Fi nal Result Performing Organization Address City/[facility]/ZIP Co de Phone Number [address] [address] documented in this encounter Visit Diagnoses Diagnosis Hypouricemia- Primary Other abnormal blood chemistry documented in this encounter Additional Health Concerns Infection Onset Date Last Indicated Resolved Time CoV-Risk 05/10/2020 05/13/2020 05/16/2020 4:06 PM EDT documented as of this encounter Care Teams Chemical Radiation Technician Relationship Specialty Start Date End Date Domenic Beckham MD [address] [place] [address] [place] [address] PCP - General 09/02/17 Leonor Frias, RN [address] [place] [address] Registered Nurse 04/22/20 01/18/24 Alexandra Noonan RN [address] [place] [address] Registered Nurse 01/19/24 documented as of this encounter Additional Source Comments The information contained in this document represents components of the legal health record. It is not the complete legal health record.[facility]
--- OUTSIDE RECORDS SUMMARY | 2025-08-10 12:02 | XMS_ITS | Encounter Summary ---
Author Organization [facility] Address [address] [facility] [address] [place] [address] Phone Care Team Providers Care Spacecraft Systems Engineer Name Role Phone Domenic Beckham MD Primary Care Provider Leonor Frias RN Unavailable [phone] Alexandra Noonan RN Unavailable [phone] Encounter Details Date Type Department Care Team (Late st Contact Info) Description 11/28/2018 Ancillary [facility] [address] [place] [address] [place] [address] Danielle Servin MD [address] [place], [place] [phone] [email or web address] Social History Tobacco Use Types Packs/Day Years Used Date Smoking Tobacco: Never Smokeless Tobacco: Never Alcohol Use Standard Drinks/Week Comments Yes 0 (1 standard drink = 0.6 oz pur [...] EDT Office Visit [facility] [address] [place] [address] [place] [address] Domenic Beckham MD [address] [place] [address] [place] [address] documented as of this encounter Visit Diagnoses Not on filedocumented in this encounter Additional Health Concerns Infection Onset Date Last Indicated Resolved Time CoV-Risk Comment:Asymptomatic since adm; PCRs neg. D/C per Anita Choe 03/05/2020 03/05/2020 03/06/2020 1:21 PM EDT CoV-Risk 05/10/2020 05/13/2020 05/16/2020 4:06 PM EDT documented as of this encounter Care Teams Spacecraft Systems Engineer Relationship Specialty Start Date End Date Domenic Beckham MD [address] [place] [address] [place] [address] PCP - General 09/02/17 Leonor Frias, RN [address] [place] [address] Registered Nurse 04/22/20 01/18/24 Alexandra Noonan RN [address] [place] [address] Registered Nurse 01/19/24 documented as of this encounter Additional Source Comments The information contained in this document represents components of the legal health record. It is not the complete legal health record.[facility]
--- OUTSIDE RECORDS SUMMARY | 2025-08-10 12:02 | XMS_ITS | Encounter Summary ---
Author Organization [facility] Address [address] [facility] [address] [place] [address] Phone Care Team Providers Care Clinical Program Director Name Role Phone Domenic Beckham MD Primary Care Provider Leonor Frias RN Unavailable [phone] Alexandra Noonan RN Unavailable [phone] Encounter Details Date Type Department Care Team (Late st Contact Info) Description 09/01/2023 Procedure Pass [facility] Echocardiography [address] [place] [address] Social History Tobacco Use Types Packs/Day Years [...] EDT Office Visit [facility] [address] [place] [address] [place] [address] Domenic Beckham MD [address] [place] [address] [place] [address] [place] [address] documented as of this encounter Visit Diagnoses Not on filedocumented in this encounter Care Teams Clinical Program Director Relationship Specialty Start Date End Date Domenic Beckham MD [address] [place] [address] [place] [address] PCP - General 09/02/17 Leonor Frias RN [address] [place] [address] Registered Nurse 04/22/20 01/18/24 Alexandra Noonan RN [address] [place] [address] Registered Nurse 01/19/24 documented as of this encounter Additional Source Comments The information contained in this document represents components of the legal health record. It is not the complete legal health record.[facility]
--- OUTSIDE RECORDS SUMMARY | 2025-08-10 12:02 | XMS_ITS | Clinical Summary ---
Author Organization [address] [place] [address] Address [address] [place] [address] Phone Care Team Providers Care Shelver Name Role Phone Domenic Beckham MD Primary Care Provider Allergies Active Allergy Reactions Criticality Noted Date Comments Amiodarone Nausea And Vomiting Medium 06/04/2020 Dronedarone Nausea And Vomiting Low 06/04/2020 Metoprolol Shortness of breath High 06/04/2020 Mold 06/16/2024 Pollen Extracts 06/16/2024 Medications albuterol HFA (PROAIR HFA ; PROVENTIL HFA ; VENTOLIN HFA) 90 mcg/actuation inhaler Inhale 2 Puffs into the lungs every 4 hours as needed. Active ascorbic acid, vitamin C, 500 mg capsule Take 1,000 mg by mouth daily. Active atorvastatin (LIPITOR) 40 mg tablet Take 40 mg by mouth daily. Active vit B complx/folic acid/lysine (B COMPLEX VITAMINS PO) Take 500 mg by mouth daily. Active UNABLE TO FIND CPAP HISTORICAL (HISTORICAL CPAP) Inhale into the lungs. Active empagliflozin-met formin (Synjardy) 12.5-1,000 mg tablet Take 1 Tablet by mouth daily. Active ferrous sulfate 325 mg (65 mg elemental iron) tablet Take 1 Tablet by mouth daily. Active fluticasone propionate (FLONASE) 50 mcg/actuation nasal spray 2 Sprays by Each Nare route daily. Active gabapentin (NEURONTIN) 300 mg capsule Take 2 Capsules by mouth daily as needed. Active ibuprofen (ADVIL,MOTRIN) 800 mg tablet Take 1 Tablet by mouth every 8 hours as needed. Active Lactobacillus acidophilus (PROBIOTIC ACIDOPHILUS ORAL) Take by mouth daily. Active lisinopriL (PRINIVIL,ZESTRIL ) 5 mg tablet Take 5 mg by mouth daily. Active magnesium 250 mg tablet Take 1 Tablet by mouth daily. Active mupirocin (BACTROBAN) 2 % ointment Apply topically 3 times daily. Active warfarin (COUMADIN) 5 mg tablet Take 1 Tablet by mouth See Admin Instructions. [facility] coumadin clinic manages May cause heavy bleeding. Take at same time every day. Do not change dietary habits. Active multivit-min/iron /folic acid/K (ADULTS MULTIVITAMIN ORAL) Take by mouth. Activ e vit C/E/Zn/coppr/lute in/zeaxan (PRESERVISION AREDS-2 ORAL) Take 1 Tablet by mouth 2 Times Daily. Active wheat dextrin (BENEFIBER HEALTHY SHAPE ORAL) WHEAT DEXTRIN (BENEFIBER DRINK MIX OR) 1 tbs daily Active furosemide (LASIX) 40 mg tablet Take 1 tablet (40 mg total) by mouth 1 (one) time each day. 5 Active amiodarone (PACERONE) 200 mg tablet TAKE 1 TABLET BY MOUTH EVERY DAY 90 tablet 1 5 Active metoprolol succinate (TOPROL-XL) 25 mg 24 hr tabletIndications :Shortness of breath,Unspecifie d atrial fibrillation (CMS/HCC V24, CMS/HCC V28) TAKE 1 TABLET BY MOUTH EVERY DAY 90 tablet 3 5 Active Active Problems Problem Noted Date Diagnosed Date Aortic valve stenosis 10/03/2024 Ventricular tachycardia (CMS/HCC V24, CMS/HCC V2 8) 07/04/2024 Overview (11/14/2024): In March 2024, documented prolonged episode of ventricular tachycardia on newly implanted pacemaker, normal electrolytes, ischemic work up, in the setting of cardiomyopathy, 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 Mild restrictive lung disease improvement postbronchodilator. Baseline normal TSH and LFTs. Ulcer of left lower extremit y, limited to breakdown of skin (CMS/HCC V24, CMS/HCC V28) 06/22/2024 Varicose veins of left lower extremity with ulcer of calf limited to breakdown of skin (CMS/HCC V24, CMS/HCC V28) 06/22/2024 Spinal stenosis 02/22/2024 Carpal tunnel syndrome of right wrist 08/16/2023 Overview (10/03/2024): Pathology report positive for amyloid Abnormal nuclear stress test 06/11/2023 Fatigue 06/11/2023 Hypertrophic cardiomyopathy (CMS/HCC V24, [facility]/ C V28) 06/11/2023 Overview (11/14/2024): Question of cardaic amyloidosis (carpal tunnel syndrome, amyloid noted at time of surgery, spinal stenosis) Negative PYP scan, follow-up cardiac MRI also with no evidence of cardiac amyloid, EF 48% hypokinesis of the mid to apical anterior wall, maximum wall thickness of 17.6 mm at the basal anteroseptum, [facility] is [facility], given the amyloid detected in his carpal tunnel he is at risk of manifest cardiac amyloid, plan is to repeat cardiac testing in 2 years Echocardiogram September 06, 2024, dilated atria, basal septal hypertrophy, hypokinesis of the basal anterior septal and inferoseptal kirby, septal thickness measured at 1.9 cm, EF 50 to 55%. Trace AI, trace MR, no change from April 2023 Lightheadedness 04/22/2023 Coronary artery disease invo lving chick[place] coronary artery of [place] heart without angina pectoris 04/09/2023 Overview (10/03/2024): Last Assessment & Plan: Significant three-vessel coronary disease. No active angina on current medications. I will defer to Dr. Shepard for management of his ischemic heart disease. He is on isosorbide and metoprolol. He is not on lipid-lowering although prior discussions have been documented. Gastrointestinal hemorrhage 07/29/2022 Permanent atrial fibrillation (CMS/HCC V24, CMS/ HCC V28) 01/22/2022 Overview (10/03/2024): Last Assessment & Plan: This 78-year-old gentleman has atrial flutter which may or may not be typical. He may have atrial fibrillation as well but I do not have documentation of that. Is unclear whether he has amyloid heart disease but certainly some of the clinical history would be supportive of that diagnosis. He is doing better from a rate control standpoint on the current doses of metoprolol and diltiazem. I do not know whether some of his LV dysfunction is tachycardia induced. Nonetheless, there are 2 primary options for him. The first would be a pacemaker or implantable defibrillator with an AV node ablation to guarantee rate control with cessation of diltiazem. He would still need an anticoagulant and ideally would be on metoprolol for cardiomyopathy purposes. In my experience patients with amyloidosis often need pacemakers in this option may be preferable if he is proven to have the amyloid diagnosis. The second option would be an ablation targeting the atrial flutter and performing pulmonary vein isolation to minimize the risk of recurrent atrial arrhythmias. This would have a 70 to 80% success rate at maintaining sinus rhythm but if he was in the one third he might need additional treatment he would have to then revisit the use of the pacemaker option. As well as the upsizing downsides. We did this in great detail over period of 70 minutes. He has limited options pharmacologically given the prior experience with amiodarone and multaq along with his baseline renal dysfunction and borderline prolonged QT interval. He was scheduled for a watchman in the past and apparently had 2 large appendage and it was deferred. He is comfortable with Coumadin although he did have a bleed on Eliquis but is doing well at the moment. He is going to think about his options and let me know how would like to proceed. We will take the current doses of metoprolol and diltiazem for rate control. We will continue anticoagulation. I did review the procedural complications of each procedure Hypertension 07/31/2021 Overview (10/03/2024): Last Assessment & Plan: Controlled, continue current regimen. He has been monitoring this from time to time at home and has been stable around 130 systolically. I advised should this increase we would want to try to alter his regimen. Premature ventricular contractions 07/31/2021 Overview (10/03/2024): Last Assessment & Plan: Bigeminy on EKG, he is asymptomatic. He has not had a full echocardiogram in multiple years we will update this to reassess LV function and also Shortness of breath 07/31/2021 Encounters Date Type Department Care Team Description 07/13/2025 2:00 PM EDT Office Visit [facility] [address] [place] [id number] Treva Casas MD Permanent atrial fibrillation (CMS/[facility] V24, CMS/[facility] V28) (Primary Dx); Hypertrophic cardiomyopathy (CMS/HCC V24, CMS/HCC V28); Venous ulcer (CMS/HCC V24, CMS/HCC V28); Acute embolism and thrombosis of internal jugular vein, bilateral (CMS/HCC V24, CMS/HCC V28); Varicose veins of left lower extremity with both ulcer of ankle and inflammation (CODE) (CMS/[facility] V24, CMS/[facility] V28); Atherosclerosis of [place] arteries of extremities with intermittent claudication, right leg ([facility] V24) 06/27/2025 2:00 PM EDT Ancillary Procedure [facility] - [address] [place] [address] from Last 3 Months Social History Tobacco Use Types Packs/Day Years Used Date Smoking Tobacco: Never Smokeless Tobacco: Never Tobacco Cessation:Counseling Given: Not Answered Alcohol Use Standard Drinks/Week Comments Yes 0 (1 standard drink = 0.6 oz pur e alcohol) Sex and Gender Information Value Date Recorded Sex Assigned at Not on file Legal Sex Male 7:55 PM EST Gender Identity Not on file Sexual Orientation Not on file Obstetrics History Last Filed Vital Signs Vital Sign Reading Time Taken Comments Blood Pressure 114/78 07/13/2025 2:14 PM EDT Pulse 70 07/13/2025 2:14 PM EDT Temperature - - Respiratory Rate - - Oxygen Saturation 94% 07/13/2025 2:14 PM EDT Inhaled Oxygen Concentration - - Weight 103 kg (228 lb) 07/13/2025 2:14 PM EDT Height 175.3 cm (5' 9 ) 07/13/2025 2:14 PM EDT Body Mass Index 33.67 07/13/2025 2:14 PM EDT Plan of Treatment Upcoming Encounters Date Type Department Care Team (Late st Contact Info) Description 09/20/2025 8:30 AM EST Ancillary Procedure [facility] - [address] [place] [address] 09/24/2025 9:15 AM EST Ancillary Procedure [facility] - [address] [place] [address] 10/09/2025 9:00 AM EST Ancillary Procedure [facility] - [address] [place] [address] 04/01/2026 10:30 AM EDT Ancillary Procedure [facility] - [address] [place] [address] Health Maintenance Due Date Last Done Comments Diabetes: Annual Foot Exam 02[birth year]12/1955 Diabetes: Annual Retina Eye Exam 02/12/1955 Zoster Vaccines (1 of 2) 02/12/1994 Pneumococcal Vaccine: 50+ Years (2 of 2 - PCV) 03/25/2019 03/25/2018 DTaP,Tdap,and Td Vaccines (2 - Td or Tdap) 05/04/2022 05/04/2012 Falls Risk Assessment 10/17/2022 Medicare Annual Wellness Visit 10/17/2022 Social Influencers of Health Screening 10/17/2022 Diabetes: Blood Sugar Control Test (HGBA1C) 11/11/2024 05/12/2024, 05/19/2023 Depression Screening 11/15/2024 COVID-19 Vaccine ( season) 2025 08/08/2024, 08/16/2023, 07/27/2022, Additional history exists Influenza Vaccine (#1) 2025 , 08/31/2023, 07/27/2022, Additional history exists Diabetes: Annual GFR (Glomerular Filtration Rate) 11/28/2025 11/28/2024, 11/14/2024, 04/29/2024, Additional history exists Hypertension/CHF/CAD Annual BMP Blood Test 11/28/2025 11/28/2024, 11/14/2024, 04/29/2024, Additional history exists Diabetes: Annual Urine Albumin-Creatinine Ratio (uACR) 05/29/2026 05/29/2025, 01/06/2024, 01/06/2024, Additional history exists Cholesterol Screening (Lipid Panel) 01/13/2029 01/14/2024 Hepatitis A Vaccines Aged Out 11/22/2012, 05/31/2012, 05/04/2012, Additional history exists No longer eligible based on patient's age to complete this topic Hepatitis B Vaccines Completed 11/22/2012, 05/31/2012, 05/04/2012, Additional history exists RSV Immunization Adult Patients Completed 08/19/2023 HIB Vaccines Aged Out No longer eligi ble based on patient's age to complete this topic HPV Vaccines Aged Out No longer eligi ble based on patient's age to complete this topic IPV Vaccines Aged Out No longer eligi ble based on patient's age to complete this topic MMR Vaccines Aged Out No longer eligi ble based on patient's age to complete this topic Meningococcal ACWY Vaccine Aged Out N o longer eligible based on patient's age to complete this topic Meningococcal B Vaccine Aged Out No l onger eligible based on patient's age to complete this topic RSV Immunization Patients Under 20 months Aged Out No longer eligible based on patient's age to complete this topic Varicella Vaccines Aged Out No longer eligible based on patient's age to complete this topic Medical Devices Implanted Type Area Splitting Machine Feeder Device Identifier Shelf Expiration Date Model / Serial / Lot Adrian-Stju 1272 Assurity Mri(Tm) [id number] Implanted:10/2024 (Quantity not on file) Cardiac Pacemaker BYRNE Jascha [employer] 1272 ASSURITY MRI(TM) / [id number] / Abbt-Stju Assurity Mri [id number] Implanted:10/2024 (Quantity not on file) Cardiac Pacemaker [employer]- [employer] MRI 1272 / [id number] / Procedures Procedure Name Priority Date/Time Associated Diagnosis Comments ECG 12-LEAD Routine 07/13/2025 2:21 PM EDT Permanent atrial fibrillation (CMS/HCC V24, CMS/HCC V28) CARDIAC DEVICE CHECK- REMOTE- MURJ Routine 06/27/2025 1:58 PM EDT HEMOGLOBIN A1C Routine 05/12/2024 ANNUAL BMP BLOOD TEST Routine 04/29/2024 LIPID PANEL Routine 01/14/2024 URINE ALBUMIN CREATININE RATIO Routine 01/06/2024 from Last 3 Months or Most Recently Relevant to Health Maintenance Results * ECG 12 lead (07/13/2025 2:21 PM EDT) Ventricular Rate ECG 70 BPM GEMUSE Atrial Rate 104 BPM GEMUSE QRS Duration 162 ms GEMUSE Q-T Interval 470 ms GEMUSE QTc 507 ms GEMUSE R [place] 156 degrees GEMUSE T [place] 1 degrees GEMUSE ECG Interpretation Sinus tachycardia with complete heart block and Ventricular-pa hector rhythm Abnormal ECG When compared with ECG of 14-NOV-2024 07:58, Sinus rhythm is now with complete heart block Confirmed by TREVA CASAS ([id number]) on 07/13/2025 5:00:59 PM GEMUSE 07/13/2025 2:21 PM EDT 07/13/2025 5:00 PM EDT Treva Casas MD ECG ORDERABLES Final Result GEMUSE * Cardiac device check - Remote- MURJ (06/27/2025 1:58 PM EDT) Date Time Interrogation Session [id number] CV DEVICE CHECK Type Interrogation Session Remote Scheduled CV DEVICE CHECK Implantable Pulse Generator Splitting Machine Feeder [employer] CV DEVICE CHECK Implantable Pulse Generator Type IPG CV DEVICE CHECK Implantable Pulse Generator Model 1272 Assurity MRI(TM) CV DEVICE CHECK Implantable Pulse Generator Serial Number [id number] CV DEVICE CHECK Implantable Pulse Generator Implant Date 20240225 CV DEVICE CHECK Battery Remaining Percentage 90.00 CV DEVICE CHECK Battery Remaining Longevity 101.0 CV DEVICE CHECK Battery Voltage 3.010 CV D EVICE CHECK Battery MATERIAL HAULER Trigger 2.600 CV DEVICE CHECK Battery Status Middle of Service CV DEVICE CHECK Solo Statistic RV Percent Paced 99.00 CV DEVICE CHECK Lead Channel Sensing Intrinsic Amplitude 12.000 CV DEVICE CHECK Lead Channel Setting Sensing Sensitivity 2.00 CV DEVICE CHECK Lead Channel Impedance Value 310 CV DEVICE CHECK Lead Channel Setting Pacing Amplitude 2.000 CV DEVICE CHECK Lead Channel Setting Pacing Pulse Width 0.4 CV DEVICE CHECK Solo Setting Mode (NBG Code) VVIR CV DEVICE CHECK Solo Setting Lower Rate Limit 70 CV DEVICE CHECK Solo Setting Maximum Sensor Rate 130 CV DEVICE CHECK Date of Service 2025-07-04 CV DEVICE CHECK Anatomical Region Laterality Modality Device Interroga tion 06/20/2025 3:23 AM EDT Impressions 06/27/2025 1:56 PM EDT Normal Remote: No Events * Normal Device Function * Alerts or events: None * Battery: Battery is at 90%, 8.42 yrs * Sensing, impedance and thresholds reviewed * Programmed parameters reviewed * Presenting rhythm reviewed * Heart Rate Histograms reviewed * No significant changes noted Narrative Procedure Note Zander Gomes MD - 06/27/2025 IMPRESSION: Normal Remote: No Events * Normal Device Function * Alerts or events: None * Battery: Battery is at 90%, 8.42 yrs * Sensing, impedance and thresholds reviewed * Programmed parameters reviewed * Presenting rhythm reviewed * Heart Rate Histograms reviewed * No significant changes noted Result [facility] Zander Gomes MD CV IMPLANTABLE CARDIAC DEVICE PROCEDURES Final Result * Hemoglobin A1c (05/12/2024) [facility] Hemoglobin A1C 0.0 % Comment:No interpretation Blood Venous blood specimen / Unknown Result [facility] Historical Provider LAB BLOOD ORDERABLES Mirna l Result * Annual BMP Blood Test (04/29/2024) [facility] Annual BMP Blood Test Abstracted Result [facility] Historical Provider HEALTH MAINTENANCE Final Result * Lipid panel (01/14/2024) LDL/HDL Ratio 0 Comment:No interpretation Triglycerides 0 mg/dL Comment:No interpretation Cholesterol 0 mg/dL Comment:No interpretation HDL 0 mg/dL Comment:No interpretation LDL Cholesterol 0 mg/dL Comment:No interpretation Blood Venous blood specimen / Unknown Historical Provider LAB BLOOD ORDERABLES Mirna l Result * Urine Albumin Creatinine Ratio (01/06/2024) Urine Albumin Creatinine Ratio Abstracted Historical Provider HEALTH MAINTENANCE Final Result from Last 3 Months or Most Recently Relevant to Health Maintenance Insurance MEDICARE [facility] Care Teams Shelver Relationship Specialty Start Date End Date Domenic Beckham MD [address] [place] [address] PCP - General Internal Medicine 03/29/25
--- OUTSIDE RECORDS SUMMARY | 2025-08-10 12:02 | XMS_ITS | Encounter Summary ---
Author Organization [facility] Address [address] [place] [phone] Phone Care Team Providers Care Film Critic Name Role Phone Domenic Beckham MD Primary Care Provider Leonor Frias RN Unavailable [phone] Alexandra Noonan RN Unavailable [phone] Encounter Details Date Type Department Care Team (Late st Contact Info) Description 09/24/2023 Transcribe Orders [facility] [address] [place] [address] Unknown, Unknown, Social History Tobacco Use Types Packs/Day Years [...] EDT Office Visit [facility] [address] [place] [address] [place] [address] Domenic Beckham MD [address] [place] [address] [id number] documented as of this encounter Visit Diagnoses Not on filedocumented in this encounter Care Teams Film Critic Relationship Specialty Start Date End Date Domenic Beckham MD [address] [place] [address] [address] PCP - General 09/02/17 Leonor Frias RN [address] [place] [id number] Registered Nurse 04/22/20 01/18/24 Alexandra Noonan RN [address] [place] [phone] Registered Nurse 01/19/24 documented as of this encounter Additional Source Comments The information contained in this document represents components of the legal health record. It is not the complete legal health record.[facility]
--- OUTSIDE RECORDS SUMMARY | 2025-08-10 12:02 | XMS_ITS | Clinical Summary ---
Author Organization [facility] Address [address] [place] [address] Phone Care Team Providers Care Unix Developer Name Role Phone Domenic Beckham MD Primary Care Provider Alexandra Noonan RN Unavailable [phone] Allergies Active Allergy Reactions Criticality Noted Date Comments Dronedarone Nausea and/or Vomiting Low 06/04/2020 Other Medium 01/17/2020 Mold , Asthma like symptoms Pollens Extract Sneezing Low 01/17/2020 Medications Medication-Free Text Take 500 mg by mouth 2 (two) times a day. Vitamin C Active atorvastatin (LIPITOR) 40 MG tablet Take 1 tablet by mouth daily. Active Medication-Free Text daily. Vitamin B Complex Active ferrous sulfate 140 mg (45 mg ugashik iron) TbER Take 140 mg by mouth daily. Active lisinopriL (PRINIVIL,ZESTRI L) 5 MG tabletIndication s:Hypertensive heart disease with heart failure Take 1 tablet (5 mg total) by mouth daily. Restart Wednesday if feeling well 30 tablet 11 03/07/20 20 Active VENTOLIN HFA 90 mcg/actuation inhaler Take 2 puffs by mouth as needed. 01/25/20 20 Active magnesium oxide 250 mg (150 mg elemental) Tab Take 250 mg by mouth daily. Active fluticasone propionate (FLONASE) 50 mcg/actuation nasal sprayIndications :allergic rhinitis 2 sprays by Nasal route daily. 2 sprays each nostril daily Indications: inflammation of the nose due to an allergy Active gabapentin (NEURONTIN) 300 MG capsule Take 600 mg by mouth nightly at bedtime. Active isosorbide mononitrate (IMDUR) 60 MG 24 hr tablet Take 60 mg by mouth daily. Active vitamins A,C,I-irvd-libue r (PRESERVISION AREDS) 4,296 mcg-226 mg-90 mg Cap Take 1 capsule by mouth 2 (two) times a day with meals. Active metoprolol succinate (TOPROL-XL) 25 MG 24 hr tablet Take 2 tablets (50 mg total) by mouth daily. 30 tablet 08/28/20 23 Active amiodarone (PACERONE) 200 MG tablet Take 200 mg by mouth daily. Active warfarin (COUMADIN) 5 MG tabletIndication s:Chronic atrial fibrillation Take 1 tablet (5 mg total) by mouth daily. Take 5mg every Wednesday and Take 10mg all other days 04/27/20 24 Active Additional Information Patient taking differently:5 mg Oral Daily, Maintenance plan:7.5 mg every Wed, Wed; 5 mg all other days, Reported on 08/01/2025 BENEFIBER, GUAR GUM, ORAL Take 1 TABLEspoonful by mouth 2 (two) times a day (once in the morning and once in the afternoon). 04/29/20 24 Active empagliflozin-me tFORMIN (SYNJARDY) 12.5-1,000 mg per tablet Take 2 tablets by mouth daily with breakfast. Take 1 tablet daily 04/29/20 24 Active furosemide (LASIX) 40 MG tablet Take 40 mg by mouth. Twice daily Active furosemide (LASIX) 40 MG tablet Take 1.5 tablets (60 mg total) by mouth every morning for 7 days. 11 tablet 06/10/20 25 Active Active Problems Problem Noted Date Diagnosed Date Cellulitis 04/25/2024 Assessment & Plan (04/27/2024 4:00 PM EDT): -Patient reports symptoms began about 24 hours prior to admission with quickly worsening redness spreading from his foot up to his knee. -Admit Labs show mild leukocytosis of 12.28 and elevated CRP. -Patient was started on cefazolin on admission to the floor; did receive oral amoxicillin 875 mg and doxycycline 100 mg by the ER provider. Has remained afebrile stable vital signs. Pain markedly improved. On exam erythema has resolved. Patient does have petechial red rash at site of previous infection. Labs show resolution of leukocytosis with a white count down to 7.5 Plan - Discontinue cefazolin and transition to Augmentin 875 twice daily for 7 days to complete a course of treatment. -Follow clinical picture and response to antibiotics. CKD (chronic kidney disease) 04/25/2024 Assessment & Plan (04/27/2024 4:06 PM EDT): Baseline creatinine appears to be 1.4-1.7 Creatinine now up to 2.2 consistent with NEHA as noted previously. DM2 (diabetes mellitus, type 2) 04/25/2024 Assessment & Plan (04/26/2024 2:50 PM EDT): -Hemoglobin A1c 5.4. Blood sugars well-controlled with insulin sign scale coverage. - Continue to monitor with point of care, cover with insulin sliding scale as needed Atherosclerotic cardiovascular disease 0 Paroxysmal atrial fibrillation 06/04/2020 group home (current) use of anticoagulants 2019 GI bleed 03/06/2020 Assessment & Plan (03/07/2020 2:03 PM EDT): Presented with confusion, lethargy, large GI bleed (acute blood loss), hemoglobin of 4, underwent MTP. Patient is on Eliquis for A. fib CTA showed no gross bleeding site Incidentally indeterminant skeletal lesions were seen in the pelvis and left hip, the patient will need follow-up with his pcp. No further bleeding symptoms overnight, colonoscopy today did not reveal a bleeding source, patient was found to have hemorrhoids, moderate, GI feels unlikely to have been a bleeding source, she feels this was most likely due to diverticulosis. Several polyps found which were removed GI feels the patient can go home today, hemoglobin slightly lower overnight, 7.4 from 7.9 but received IV fluid, no further bleeding symptoms, feels very well, up out of bed post colonoscopy and eating GI recommends holding Eliquis for 1 to 2 weeks and following up with his managing jeweler regarding restarting We will also check a CBC at home tomorrow as well as Wednesday Assessment & Plan (03/06/2020 10:05 AM EDT): -- Likely LOWER source Responded to PRBCs (x4) and reversal of NOAC -- GI consulted, recommends: clears then NPO p MN, telemetry, 4pm labs, GoLytely prep overnight, colonoscopy tomorrow Acute kidney injury 03/06/2020 Assessment & Plan (04/27/2024 4:08 PM EDT): Baseline creatinine appears to be 1.4-1.7 patient has slight bump in creatinine to 1.9 therefore furosemide dose held on 04/25 patient given full dose on 04/26 AM dose on 3 held. On discussion with patient and his family he received an MRI with contrast on Wednesday prior to admission which likely could contribute to slight bump in his creatinine. Patient was given IV fluids 200 mL repeat creatinine ... Patient follows with outpatient nephrology with [facility] was previously seen by Dr. Vasquez Gonzalez who is now retired patient has a new provider with follow-up planned. Recommend follow-up with PCP early next week (week of 05/01/2024) for repeat lab testing. Patient also reports that approximately 7 weeks ago he was seen in the ED and his Lasix dose was increased to 20 mg twice daily from 20 mg once daily. He notes that his managing jeweler Dr. Jsoe Shepard was okay with the increase. Patient was given 200 mL IV fluid and Lasix held. Repeat creatinine this afternoon increased to 2.2 - DC Lasix -Hold lisinopril - IV fluid normal saline at 75 mL continuous - Repeat renal labs in a.m. - Renal consult with Dr. Peralta in AM. Assessment & Plan (03/07/2020 2:04 PM EDT): Due to blood loss, resolving, creatinine trending back down to baseline, okay to restart furosemide and lisinopril Wednesday Assessment & Plan (03/06/2020 10:07 AM EDT): -- Pre-renal +/- ATN from hypotension -- Continue with IVF at 125/hr -- Follow up 4pm labs -- Serum K+ down this am to 5.2 Maintain telemetry Hyperlipidemia 04/27/2019 HENRY on CPAP 04/27/2019 Assessment & Plan (04/26/2024 2:49 PM EDT): -Patient has brought in his CPAP which has been set up by respiratory for use at night while sleeping. Assessment & Plan (03/06/2020 10:23 AM EDT): -- Will continue with [facility] provided CPAP nocturnally per usual home Rx Patient's home setting is 12cm H20 ROJAS (dyspnea on exertion) 01/19/2019 Swelling of both lower extremities 01/19/2019 Aortic valve disorder 10/21/2018 Assessment & Plan (10/21/2018 1:57 PM EST): Moderate aortic stenosis this is not changed much. Asymptomatic. We will repeat his echocardiogram in 1 year he also does have some moderate mitral regurgitation. Essential hypertension 04/08/2018 Assessment & Plan (04/27/2024 4:09 PM EDT): -Blood pressure is currently well-controlled with lisinopril, diltiazem, Toprol- XL, Imdur. -Lasix and lisinopril on hold. - Follow blood pressures. Assessment & Plan (03/07/2020 2:05 PM EDT): As above sbp 150 Assessment & Plan (03/06/2020 10:08 AM EDT): -- continue to hold lisinopril Assessment & Plan (01/08/2020 1:09 PM EST): Pressure in the office today is normal. His lisinopril was decreased since his diltiazem was increased on Wednesday. Continue current dose of diltiazem and lisinopril for now. Chronic atrial fibrillation 04/08/2018 Assessment & Plan (04/27/2024 4:10 PM EDT): Remains in atrial fibrillation with rate well-controlled.- -INR down to 1.8 as patient missed dose on 04/25 when admitted. -Continue Toprol-XL and amiodarone -Warfarin 10 mg today -Follow-up INR and dose Coumadin accordingly (he takes 5 mg 3 days of the week and 10 mg 4 days of the week but is not sure on which days) Assessment & Plan (03/07/2020 2:45 PM EDT): Anticoagulated as above, on hold C/w diltiazem, Lipitor, multaq, okay to restart furosemide wednesday, continue lisinopril wednesday, Assessment & Plan (03/06/2020 10:13 AM EDT): -- hold cardizem, consider restarting short acting Q6 -- HOLD Eliquist Assessment & Plan (01/26/2020 2:57 PM EDT): Currently paroxysmal and in sinus rhythm. We can leave him on the current meds. He is got a follow-up with Dr. Garcia in a few weeks. If he fails Vanda around he may need Tikosyn or sotalol. Eventually an ablation may need to be considered. I advised him to try to lose some weight he is 10 pounds more than he was before so weight loss will help. Otherwise we will see how he does I am not confident he is going to stay in sinus rhythm very long. Continue anticoagulation he did have some mild rectal bleeding but this was probably hemorrhoids he is getting keep an eye on it. Assessment & Plan (01/08/2020 1:08 PM EST): He is difficult to rate control. He was started on Multaq with the intention of doing a cardioversion. The cardioversion was canceled because the patient remembered that he skipped a dose of Eliquis. We will reschedule him for cardioversion 4 weeks after his skipped dose - week of January 21. His diltiazem was increased on Wednesday. He is now taking 240 mg twice daily of long-acting diltiazem. His ventricular response is better but still rapid. He has a previously arranged appointment with Dr. Garcia tomorrow in our [place] office. Assessment & Plan (11/04/2018 12:38 PM EST): We reviewed his data today. His A. fib today is about 110. 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 24% tachycardia. For now we will leave him alone he feels okay but I do think setting up a cardioversion is the best next step. He is never had one he went from paroxysmal to persistent and giving this a shot would be helpful. He is on Xarelto which she will continue we will set up the cardioversion as an outpatient. Assessment & Plan (10/21/2018 4:38 PM EST): Owen remains on Xarelto and diltiazem for rate control. Rates up today Missed meds yesterday Will have him come for EKG Wednesday before any changes Assessment & Plan (04/08/2018 9:36 AM EDT): EKG today shows atrial fibrillation this is rate controlled he is on Xarelto for stroke risk reduction. I will continue this strategy. At some point may want to repeat a Holter to prove he is now in persistent atrial fibrillation. Atherosclerosis of [place] co ronary artery of [place] heart without angina pectoris 04/08/2018 Assessment & Plan (04/08/2018 9:36 AM EDT): Known single-vessel coronary disease with a diagonal branch. He has no angina. He has mild plaquing elsewhere. Because of this and his diabetes I do suggest going back on a baby aspirin as a Xarelto would not necessarily protect him from atherosclerotic events. If he has bleeding with the addition of baby aspirin we will rediscuss. Chronic diastolic heart failure 04/08/2018 Assessment & Plan (04/27/2024 4:05 PM EDT): Patient appears euvolemic, no JVD or pulmonary rales. No edema of right leg. No evidence of acute decompensation. - Lasix on hold for NEHA - Follow daily weights Assessment & Plan (01/08/2020 1:08 PM EST): He is euvolemic on exam and is not describing any heart failure symptoms at this time. Continue current dose of diuretic. Assessment & Plan (04/08/2018 9:37 AM EDT): Well compensated on diuretics. Continue low salt diet. I did ask for repeat echocardiogram to reassess his aortic valve, LV function and parameters and for pulmonary hypertension. Chronic venous hypertension with inflammation involving both sides 04/08/2018 Assessment & Plan (10/21/2018 1:58 PM EST): Mostly left leg edema. Not much pain. No skin breakdown. I would just keep an eye on this. Stockings will be difficult because of his significant back pain right now. Nonrheumatic aortic valve stenosis 04/08/2018 Assessment & Plan (04/08/2018 9:38 AM EDT): Known mild aortic stenosis exams (repeat echocardiogram to evaluate in over a year. Encounters Date Type Department Care Team Description 08/01/2025 9:00 AM EDT Office Visit [facility] [address] [place] [address] Domenic Beckham MD Chronic atrial fibrillation (Primary Dx); group home (current) use of anticoagulants 06/27/2025 9:00 AM EDT Office Visit [facility] [address] [place] [address] Domenic Beckham MD Chronic atrial fibrillation (Primary Dx); group home (current) use of anticoagulants 06/14/2025 12:29 PM EDT - 06/14/2025 11:59 PM EDT Hospital Encounter [facility], X-Ray [address] [place] [address] Domenic Beckham MD Discharge Disposition: Home or Self Care 06/14/2025 Ancillary Orders [facility], X-Ray [address] [place] [address] Domenic Beckham MD Unresolved pneumonia (Primary Dx) 06/13/2025 11:00 AM EDT Office Visit [facility] Clinic [address] [place] [address] [place] [address] Domenic Beckham MD Chronic atrial fibrillation (Primary Dx); group home (current) use of anticoagulants 06/10/2025 11:56 AM EDT - 06/10/2025 2:50 PM EDT Emergency [facility] Emergency [address] [place] [address] Janette Hernández MD Discharge Disposition: Home or Self Care 06/06/2025 9:00 AM EDT Office Visit [facility] [address] [place] [address] [place] [address] Domenic Beckham MD Chronic atrial fibrillation (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); 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 from Last 3 Months Immunizations Immunization Administration Dates Next Due Pneumococcal conjugate PCV13 03/06/2020(Deferred : Patient Refused) Family History Medical History Relation Comments CV disease Father Stroke Father CV disease Paternal Grandfather Relation Status Comments Father Paternal Grandfather Social History Tobacco Use Types Packs/Day Years Used Date Smoking Tobacco: Never Smokeless Tobacco: Never Tobacco Cessation:Counseling Given: Not Answered Alcohol Use Standard Drinks/Week Comments Yes 1 [...] Orientation Straight 08/26/2023 12 :53 PM EDT Last Filed Vital Signs Vital Sign Reading Time Taken Comments Blood Pressure 137/79 06/10/2025 2:49 PM EDT Pulse 70 06/10/2025 2:49 PM EDT Temperature 36.6 C (97.8 F) 06/10/2025 2:49 PM EDT Respiratory Rate 20 06/10/2025 2:49 PM EDT Oxygen Saturation 100% 06/10/2025 2:49 PM EDT Inhaled Oxygen Concentration - - Weight 99.8 kg (220 lb) 06/10/2025 11:36 AM EDT Height 175.3 cm (5' 9 ) 06/10/2025 11:36 AM EDT Body Mass Index 32.49 06/10/2025 11:36 AM EDT Plan of Treatment Upcoming Encounters Date Type Department Care Team (Late st Contact Info) Description 08/15/2025 9:20 AM EDT Office Visit [facility] [address] [place] [address] [place] [address] Domenic Beckham MD [address] [place] [address] [place] [address] Health Maintenance Due Date Last Done Comments ZOSTER VACCINES (1 of 2) 02/12/1994 PNEUMOCOCCAL VACCINES (50+ years) (2 of 2 - PCV) 03/25/2019 03/25/2018 Adult Td,Tdap Booster 05/04/2022 05/04/2012 DIABETIC EYE EXAM 04/25/2024 BLOOD PRESSURE 11/10/2024 05/11/2024 HEMOGLOBIN A1C 11/11/2024 05/12/2024, 04/16, 04/26/2024, Additional history exists DEPRESSION SCREENING 04/21/2025 04/21/2024 INFLUENZA VACCINE (#1) 2025 , 07/27/2022, 07/29/2021, Additional history exists COVID-19 VACCINE ( season) 2025 08/16/2023, 07/27/2022, 02/26/2022, Additional history exists ALT LEVEL (ALANINE AMINOTRANSFERASE) 11/28/2025 11/28/2024, 11/14/2024, 04/25/2024, Additional history exists TSH LEVEL 11/28/2025 11/28/2024, 10/17, 08/26/2023, Additional history exists CREATININE LEVEL 06/10/2026 06/10/2025, , 11/28/2024, Additional history exists POTASSIUM LEVEL 06/10/2026 06/10/2025, 12/16, 11/28/2024, Additional history exists HEPATITIS A VACCINES Aged Out 11/22/2012, 05/31/2012, 05/04/2012, Additional history exists No longer eligible based on patient's age to complete this topic RSV VACCINE Completed 08/19/2023 HIB VACCINES Aged Out No longer eligi ble based on patient's age to complete this topic MENINGOCOCCAL VACCINES (ACWY) Aged Out No longer eligible based on patient's age to complete this topic MENINGOCOCCAL VACCINES (B) Aged Out N o longer eligible based on patient's age to complete this topic Medical Devices Not on file Procedures Procedure Name Priority Date/Time Associated Diagnosis Comments POCT INR Routine 08/01/2025 9:08 AM EDT POCT INR Routine 06/27/2025 9:16 AM EDT XR CHEST PA AND LATERAL 2 VIEWS Routine 06/14/2025 12:45 PM EDT Unresolved pneumonia POCT INR Routine 06/13/2025 10:34 AM EDT TROPONIN STAT 06/10/2025 1:22 PM EDT XR CHEST 1 VIEW STAT 06/10/2025 12:56 PM EDT TROPONIN STAT 06/10/2025 12:22 PM EDT NT-PROBNP STAT 06/10/2025 12:22 PM EDT BASIC METABOLIC PANEL STAT 06/10/2025 12:22 PM EDT CBC AND DIFFERENTIAL STAT 06/10/2025 12:22 PM EDT ECG 12-LEAD STAT 06/10/2025 11:42 AM EDT POCT INR Routine 06/06/2025 9:05 AM EDT TSH WITH REFLEX Routine 11/28/2024 11:58 AM EST Atrial fibrillation, unspecified type On amiodarone therapy Hypertrophic cardiomyopathy COMPREHENSIVE METABOLIC PANEL Routine 11/28/2024 11:58 AM EST Atrial fibrillation, unspecified type On amiodarone therapy Hypertrophic cardiomyopathy HEMOGLOBIN A1C Routine 05/12/2024 3:35 PM EDT 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 INR 1.8(H) 0.86 - 1.17 [facility] Comment:Therapeutic Range 2. 0-3.5 08/01/2025 9:08 AM EDT 08/01/2025 9:09 AM EDT Domenic Beckham MD POINT OF CARE TEST LYNNE ELIZABETH Final Result [address] [address] * XR CHEST PA AND LATERAL 2 VIEWS (06/14/2025 12:45 PM EDT) Anatomical Region Laterality Modality Chest Computed Radiogr aphy 06/14/2025 12:5 2 PM EDT Impressions 06/14/2025 12:57 PM EDT No evidence of pneumonia or pulmonary edema. Narrative 06/14/2025 12:57 PM EDT XR CHEST PA AND LATERAL 2 VIEWS Referring clinician's provided indication for this examination in [facility]: Pneumonia COMPARISON: XR CHEST 1 VIEW ; [...] clinician's provided indication for this examination in [facility]:Pneumonia COMPARISON: XR CHEST 1 VIEW ; XR CHEST PA AND LATERAL 2 [id number] FINDINGS: Devices/Tubes/Lines: Left-sided cardiac pacemaker with lead [...] MD IMG XR CHEST Final R esult * (ABNORMAL) Troponin (06/10/2025 1:22 PM EDT) Only the most recent of2 resultswithin the time period is included. Troponin-T, HS Gen5 63(H) 0 - 14 ng/L [facility] Blood 06/10/2025 1:22 PM EDT 06/10/2025 1:26 PM EDT us Jose Barajas MD LAB BLOOD ORDERABLES Final Result [facility] [address] [place] [address] * XR CHEST 1 VIEW (06/10/2025 12:56 PM EDT) Anatomical Region Laterality Modality Chest Computed Radiogr aphy 06/10/2025 12:5 9 PM EDT Impressions 06/10/2025 1:02 PM EDT Mild vascular engorgement and peribronchial thickening could represent mild edema versus atypical infection. No focal consolidation. Narrative 06/10/2025 1:02 PM EDT XR CHEST 1 VIEW Referring clinician's provided indication for this examination in [facility]: Dyspnea (Shortness of Breath) COMPARISON: XR CHEST PORTABLE FINDINGS: Devices/Tubes/Lines: Single lead pacemaker lead. Lungs: Moderate lung volumes. Exam limited by some rotation. Mild vascular engorgement with mild peribronchial thickening. No overt edema or focal consolidation. Pleura: No pleural effusion or pneumothorax. Heart/Mediastinum: Unchanged in appearance. Bones/Soft Tissues: No significant abnormality. Procedure Note Isha Solo MD - 06/10/2025 XR CHEST 1 VIEW Referring clinician's provided indication for this examination in [facility]:Dyspnea (Shortness of Breath) COMPARISON: XR CHEST PORTABLE FINDINGS: Devices/Tubes/Lines: Single lead pacemaker lead. Lungs: Moderate lung volumes. Exam limited by some rotation. Mild vascularengorgement with mild peribronchial thickening. No overt edema or focalconsolidation. Pleura: No pleural effusion or pneumothorax. Heart/Mediastinum: Unchanged in appearance. Bones/Soft Tissues: No significant abnormality. IMPRESSION: Mild vascular engorgement and peribronchial thickening could representmild edema versus atypical infection. No focal consolidation. us Jose Barajas MD IMG XR CHEST Final Resul t * (ABNORMAL) CBC and differential (06/10/2025 12:22 PM EDT) WBC 5.51 4.00 - 11.00 K/uL [facility] RBC 4.48(L) 4.50 - 5.90 M/uL [facility] HGB 12.9(L) 13.5 - 17.5 g/dL [facility] HCT 40.6(L) 41.0 - 53.0 % [facility] PLT 146(L) 150 - 450 K/uL [facility] MCV 90.6 80.0 - 100.0 fL [facility] MCH 28.8 27.0 - 31.0 pg [facility] MCHC 31.8(L) 32.0 - 36.0 g/dL [facility] RDW 15.9(H) 11.5 - 14.5 % [facility] MPV 9.8 8.4 - 12.0 fL [facility] NRBC 0.00 0.00 /100 WBCs [facility] ABSOLUTE NRBC 0.00 0.00 K/uL [facility] DIFF METHOD Auto [facility] NEUTS 73.8 48.0 - 76.0 % [facility] LYMPHS 13.4(L) 18.0 - 41.0 % [facility] MONOS 8.9 4.0 - 11.0 % [facility] EOS 3.1 0.0 - 5.0 % [facility] BASOS 0.4 0.0 - 1.5 % [facility] Granulocytes, immature (%) 0.4 0.0 - 0.9 % [facility] ABSOLUTE NEUTS 4.07 1.92 - 7.60 K/uL [facility] ABSOLUTE LYMPHS 0.74 0.72 - 4.10 K/uL [facility] ABSOLUTE MONOS 0.49 0.16 - 1.10 K/uL [facility] ABSOLUTE EOS 0.17 0.00 - 0.50 K/uL [facility] ABSOLUTE BASOS 0.02 0.00 - 0.15 K/uL [facility] Granulocytes, immature 0.02 0.00 - 0.09 K/uL [facility] Blood 06/10/2025 12:2 2 PM EDT 06/10/2025 12:26 PM EDT Jose Barajas MD LAB BLOOD ORDERABLES Final Result Performing Organization Address City/[facility]/ZIP Co de Phone Number [address] [address] * (ABNORMAL) NT-proBNP (06/10/2025 12:22 PM EDT) NT-PROBNP 4,133(H) 0 - 450 pg/mL [facility] Blood 06/10/2025 12:2 2 PM EDT 06/10/2025 12:26 PM EDT Jose Barajas MD LAB BLOOD ORDERABLES Final Result Performing Organization Address [facility]/ZIP Co de Phone Number [address] [address] * (ABNORMAL) Basic metabolic panel (06/10/2025 12:22 PM EDT) SODIUM 141 133 - 146 mmol/L [facility] CHLORIDE 105 96 - 108 mmol/L [facility] POTASSIUM 4.7 3.3 - 5.1 mmol/L [facility] CO2 24 21 - 35 mmol/L [facility] BUN 32(H) 6 - 19 mg/dL [facility] CREATININE 1.60(H) 0.5 - 1.5 mg/dL [facility] GLUCOSE 94 70 - 99 mg/dL [facility] CALCIUM 9.4 8.4 - 10.3 mg/dL [facility] EGFR 43(L) >59 mL/min/1.7 3m2 [facility] Comment:Estimated glomerular filtration rate calculated using the CKD-EPI refit equation. ANION GAP 17 10 - 20 mmol/L [facility] Blood 06/10/2025 12:2 2 PM EDT 06/10/2025 12:26 PM EDT Jose Barajas MD LAB BLOOD ORDERABLES Final Result Performing Organization Address [facility] Co de Phone Number [address] [address] * ECG 12-LEAD (06/10/2025 11:42 AM EDT) Ventricular Rate EKG/MIN 70 BPM [facility] Atrial Rate 101 BPM [facility] QRS Duration 160 ms [facility] QT Interval 478 ms [facility] QTC Interval 516 ms [facility] P [place] 78 degrees [facility] R Wave [place] 140 degrees [facility] T Wave [place] 41 degrees [facility] 06/10/2025 11:4 2 AM EDT 06/11/2025 10:42 AM EDT Narrative [facility] - 06/11/2025 10:42 AM EDT Sinus tachycardia with complete heart block and Ventricular-paced rhythm Abnormal ECG When compared with ECG of 30-Dec-2023 13:22, Electronic ventricular pacemaker has replaced Atrial fibrillation Vent. rate has decreased by 42 bpm Confirmed by Chad HWANG ([id number]) on 06/11/2025 10:42:27 AM us Jose Barajas MD ECG ORDERABLES Final Resul t Performing Organization Address City/[facility]/ZIP Co de Phone Number [facility] * (ABNORMAL) Comprehensive metabolic panel (11/28/2024 11:58 AM EST) SODIUM 144 133 - 146 mmol/L [facility] POTASSIUM 4.4 3.3 - 5.1 mmol/L [facility] CHLORIDE 106 96 - 108 mmol/L [facility] CO2 27 21 - 35 mmol/L [facility] BUN 41(H) 6 - 19 mg/dL [facility] CREATININE 1.90(H) 0.5 - 1.5 mg/dL [facility] GLUCOSE 119(H) 70 - 99 mg/dL [facility] ALBUMIN 4.3 3.9 - 4.8 g/dL [facility] TOTAL PROTEIN 6.4(L) 6.5 - 8.0 g/dL [facility] CALCIUM 9.4 8.4 - 10.3 mg/dL [facility] ALKALINE PHOSPHATASE 71 39 - 117 U/L [facility] TOTAL BILIRUBIN 0.4 0.0 - 1.2 mg/dL [facility] AST 19 0 - 37 U/L [facility] ALT 21 0 - 40 U/L [facility] GLOBULIN 2.1 1 - 4.8 g/dL [facility] EGFR 35(L) >59 mL/min/1.7 3m2 [facility] Comment:Estimated glomerular filtration rate calculated using the CKD-EPI refit equation. ANION GAP 15 10 - 20 mmol/L [facility] Blood 11/28/2024 11:5 8 AM EST 11/28/2024 12:00 PM EST Chaenl Aviles PIN DRAFTING MACHINE TENDER LAB BLOOD ORDERABLES Fi nal Result [address] [address] * TSH with reflex (11/28/2024 11:58 AM EST) TSH 2.01 0.27 - 4.20 uIU/mL [facility] Blood 11/28/2024 11:5 8 AM EST 11/28/2024 12:00 PM EST Chanel Aviles PIN DRAFTING MACHINE TENDER LAB BLOOD ORDERABLES Fi nal Result [address] [address] * Hemoglobin A1c (05/12/2024 3:35 PM EDT) HEMOGLOBIN A1C 5.6 4.3 - 5.8 % [facility] Blood 05/12/2024 3:35 PM EDT 05/12/2024 3:54 PM EDT us [place] [facility] LAB BLOOD ORDERABLES Final Result [facility] [address] [place] [address] from Last 3 Months or Most Recently Relevant to Health Maintenance Insurance MEDICARE PART A & B [facility] PPO [facility] PPO MEDICARE PART A & B [facility] [place] [address] PPO MEDICARE PART A & B [facility] PPO [employer] OUT OF STATE PPO MEDICARE PART A & B [facility] PPO Member Subscriber Plan / Payer (Ef fective 2016-Present) Name:Owen Licea Relation to Subscriber:Self Name:Owen Licea Payer ID:[id number] (NAIC) Type:PPO Address: [address] [place] [id number] [employer] OF STATE PPO MEDICARE PART A & B [facility] PPO Member Subscriber Plan / Payer (Ef fective 2016-Present) Name:Owen Licea Relation to Subscriber:Self Name:Owen Licea Payer ID:[id number] (NAIC) Type:PPO Address: [address] PPO MEDICARE PART A & [place] [address] [address] [place] [address] PPO MEDICARE PART A & B [facility] PPO [employer] OUT OF STATE PPO MEDICARE PART A & B [facility] PPO [employer] OUT OF STATE PPO MEDICARE PART A & B [facility] [place] [address] PPO Advance Directives For more information, please contact: [phone] (9AM - 5PM [facility], Wednesday-Wednesday) Documents on File Type Date Recorded Patient Revenue Field Agent Expl anation Healthcare Proxy 05/02/2024 2:46 PM Healthcare Proxy 04/28/2024 8:08 AM Health care Proxy * Full Code (Latest Code Status on File) Date Activated Date Inactivated Comments 04/25/2024 8:06 PM Question Answer Comments Code Status Confirmed With: Patient * Full Code Except DNI Date Activated Date Inactivated Comments 03/06/2020 9:33 AM 10/09/2020 7:01 AM Question Answer Comments Code Status Confirmed With: Patient Code Status Communicated To: Inpatient Attending Code Discussion Comments: discussed with patient --ok for NIV HFNC but does not want intubation. * Full Code (Presumed) Date Activated Date Inactivated Comments 03/06/2020 1:18 AM 03/06/2020 9:33 AM Care Teams Unix Developer Relationship Specialty Start Date End Date Domenic Beckham MD [address] [place] [address] Dr MEDELLIN [address] [place] [address] PCP - General 09/02/17 Alexandra Noonan, RN [address] [place] [address] [email or web address] Registered Nurse 01/19/24 Additional Source Comments The information contained in this document represents components of the legal health record. It is not the complete legal health record.[facility]
--- OUTSIDE RECORDS SUMMARY | 2025-08-10 12:02 | XMS_ITS | Encounter Summary ---
Author Organization [facility] Address [address] [facility] [address] [place] [address] Phone Care Team Providers Care Propellant Assembler Name Role Phone Domenic Beckham MD Primary Care Provider Leonor Frias RN Unavailable [phone] Alexandra Noonan RN Unavailable [phone] Encounter Details Date Type Department Care Team (Late st Contact Info) Description 11/24/2018 Ancillary [facility] [address] Baker [place] [address] Danielle Servin MD [address] [place], [place] [id number] [email or web address] Social History Tobacco Use Types Packs/Day Years [...] EDT Office Visit [facility] [address] [place] [address] [place] [address] Domenic Beckham MD [address] [place] [address] [place] [address] documented as of this encounter Visit Diagnoses Not on filedocumented in this encounter Additional Health Concerns Infection Onset Date Last Indicated Resolved Time CoV-Risk Comment:Asymptomatic since adm; PCRs neg. D/C per Anita Choe 03/05/2020 03/05/2020 03/06/2020 1:21 PM EDT CoV-Risk 05/10/2020 05/13/2020 05/16/2020 4:06 PM EDT documented as of this encounter Care Teams Propellant Assembler Relationship Specialty Start Date End Date Domenic Beckham MD [address] [place] [address] Dr MEDELLIN [address] [place] [address] PCP - General 09/02/17 Leonor Frias, RN [address] [place] [address] Registered Nurse 04/22/20 01/18/24 Alexandra Noonan RN [address] [place] [address] Registered Nurse 01/19/24 documented as of this encounter Additional Source Comments The information contained in this document represents components of the legal health record. It is not the complete legal health record.[facility]
--- OUTSIDE RECORDS SUMMARY | 2025-08-10 12:02 | XMS_ITS | Encounter Summary ---
Author Organization [facility] Address [address] [facility] [address] [place] [address] Phone Care Team Providers Care Magazine Writer Name Role Phone Domenic Beckham MD Primary Care Provider Leonor Frias RN Unavailable [phone] Alexandra Noonan RN Unavailable [phone] Encounter Details Date Type Department Care Team (Late st Contact Info) Description 10/09/2020 Procedure Pass [facility] Endoscopy Admitting Dept Virtual Department [address] [place] [address] Social History Tobacco Use Types Packs/Day Years [...] Description 08/15/2025 9:20 AM EDT Office Visit [facility] [address] [place] [address] [place] [address] Domenic Beckham MD [address] [place] [address] [place] [address] documented as of this encounter Visit Diagnoses Not on filedocumented in this encounter Care Teams Magazine Writer Relationship Specialty Start Date End Date Domenic Beckham MD [address] [place] [address] [place] [address] PCP - General 09/02/17 Leonro Frias, RN [address] [place] [address] Registered Nurse 04/22/20 01/18/24 Alexandra Noonan, RN [address] [place] [address] Registered Nurse 01/19/24 documented as of this encounter Additional Source Comments The information contained in this document represents components of the legal health record. It is not the complete legal health record.[facility]
--- OUTSIDE RECORDS SUMMARY | 2025-08-10 12:02 | XMS_ITS | Encounter Summary ---
Author Organization [facility] Address [address] [facility] [address] [place] [address] Phone Care Team Providers Care Commercial Account Executive Name Role Phone Domenic Beckham MD Primary Care Provider Leonor Frias RN Unavailable [phone] Alexandra Noonan RN Unavailable [phone] Encounter Details Date Type Department Care Team (Late st Contact Info) Description 11/28/2018 Ancillary Orders Non-Invasive Cardiology [address] [place] [address] Danielle Servin MD [address] [place], [place] [id number] [email or web address] Atrial fibrillation, unspecified type Social History Tobacco Use Types [...] EDT Office Visit [facility] [address] [place] [address] [place] [address] Domenic Beckham MD [address] [place] [address] Dr MEDELLIN Noemy [place] [address] documented as of this encounter Results * Holter Monitor 24 Hours (11/28/2018 11:49 AM EST) Anatomical Region Laterality Modality Heart Other Narrative 11/28/2018 3:18 PM EST Holter monitor report Indication atrial fibrillation Findings: The underlying rhythm is atrial fibrillation with an average heart rate of 89 bpm, minimum heart rate 54 bpm and maximal heart rate 157 bpm. There were frequent PVCs occurring 2% of total beats. Most of these were isolated. There were rare ventricular couplets and rare ventricular bigeminy. There was one run of 8 beats of either very slow VT at a rate of 138 versus aberrantly conducted beats. Conclusion: Chronic atrial fibrillation with average heart rate of 89 bpm. Patient is tachycardic 24% of the time. There is frequent ventricular ectopy and there was an 8 beat run of either aberrantly conducted beats versus very slow ventricular tachycardia. Procedure Note Woodrow Carlson MD - 11/28/2018 Holter monitor report Indication atrial fibrillation Findings: The underlying rhythm is atrial fibrillation with an average heart rate of89 bpm, minimum heart rate 54 bpm and maximal heart rate 157 bpm. There were frequent PVCs occurring 2% of total beats. Most of these wereisolated. There were rare ventricular couplets and rare ventricularbigeminy. There was one run of 8 beats of either very slow VT at a rateof 138 versus aberrantly conducted beats. Conclusion: Chronic atrial fibrillation with average heart rate of 89 bpm. Patient istachycardic 24% of the time. There is frequent ventricular ectopy and there was an 8 beat run of eitheraberrantly conducted beats versus very slow ventricular tachycardia. Danielle Servin MD [facility] ORDERABLES F inal Result documented in this encounter Visit Diagnoses Diagnosis Atrial fibrillation, unspecified type Atrial fibrillation, unspecified type documented in this encounter Additional Health Concerns Infection Onset Date Last Indicated Resolved Time CoV-Risk Comment:Asymptomatic since adm; PCRs neg. D/C per Anita Choe 03/05/2020 03/05/2020 03/06/2020 1:21 PM EDT CoV-Risk 05/10/2020 05/13/2020 05/16/2020 4:06 PM EDT documented as of this encounter Care Teams Commercial Account Executive Relationship Specialty Start Date End Date Domenic Beckham MD [address] [place] [address] Dr MEDELLIN [address] [place] [address] PCP - General 09/02/17 Leonor Frias RN [address] [place] [address] [email or web address] Registered Nurse 04/22/20 01/18/24 Alexandra Noonan RN [address] [place] [address] Registered Nurse 01/19/24 documented as of this encounter Additional Source Comments The information contained in this document represents components of the legal health record. It is not the complete legal health record.[facility]
--- OUTSIDE RECORDS SUMMARY | 2025-08-10 12:02 | XMS_ITS | Encounter Summary ---
Author Organization [facility] Address [address] [facility] [address] [place] [address] Phone Care Team Providers Care Lumber Checker Name Role Phone Domenic Beckham MD Primary Care Provider Leonor Frias RN Unavailable [phone] Alexandra Noonan RN Unavailable [phone] Encounter Details Date Type Department Care Team (Latest Contact Info) Description 11/14/2020 Transcribe Orders [facility] [address] Baker [place] [address] Ari [place] MD [address] [place] [address] [email or web address] Diagnosis unknown (Primary Dx) Social History Tobacco Use Types [...] EDT Office Visit [facility] [address] [place] [address] [place] [address] Domenic Beckham MD [address] [place] [address] Dr AmayayoCHRISTOPHER [place] [address] documented as of this encounter Results * Ferritin (11/14/2020 10:24 AM EST) FERRITIN 32 30 - 400 ug/L [facility] Blood 11/14/2020 10:2 4 AM EST 11/14/2020 10:28 AM EST us Ari [place] MD LAB BLOOD ORDERABLES Final Resul t [facility] [address] [place] [address] * (ABNORMAL) CBC (11/14/2020 10:24 AM EST) WBC 5.68 4.00 - 11.00 K/uL [facility] Comment:Note Reference Range updates to all CBC and Differential results. RBC 3.52(L) 3.90 - 5.69 M/uL [facility] HGB 9.1(L) 12.4 - 17.3 g/dL [facility] Comment:Note updated Referen ce Ranges for all CBC and Differential results. HCT 29.4(L) 37.0 - 51.0 % [facility] PLT 150 140 - 430 K/uL [facility] MCV 83.5 78.0 - 97.0 fL [facility] MCH 25.9 25.0 - 33.0 pg [facility] MCHC 31.0(L) 32.0 - 36.0 g/dL [facility] RDW 16.2(H) 11.0 - 15.0 % [facility] MPV 11.7 8.4 - 12.8 fl [facility] NRBC 0.00 0 /100 WBCs [facility] ABSOLUTE NRBC 0.00 0 K/uL [facility] Blood 11/14/2020 10:2 4 AM EST 11/14/2020 10:28 AM EST us Ari [place] MD LAB BLOOD ORDERABLES Final Resul t Performing Organization Address [facility] Co de Phone Number [address] [address] * (ABNORMAL) Iron and iron binding capacity (11/14/2020 10:24 AM EST) IRON 47 45 - 160 ug/dL [facility] IRON BINDING CAPACITY 286 228 - 428 ug/dL [facility] TRANSFERRIN SATURAT. 16(L) 20 - 55 % [facility] Blood 11/14/2020 10:2 4 AM EST 11/14/2020 10:28 AM EST us Ari [place] MD LAB BLOOD ORDERABLES Final Resul t Performing Organization Address [facility] de Phone Number [address] [address] documented in this encounter Visit Diagnoses Diagnosis Diagnosis unknown- Primary documented in this encounter Care Teams Lumber Checker Relationship Specialty Start Date End Date Domenic Beckham MD [address] [place] [address] [address] PCP - General 09/02/17 Leonor Frias RN [address] [place] [address] Registered Nurse 04/22/20 01/18/24 Alexandra Noonan RN [address] [place] [address] Registered Nurse 01/19/24 documented as of this encounter Additional Source Comments The information contained in this document represents components of the legal health record. It is not the complete legal health record.[facility]
--- OUTSIDE RECORDS SUMMARY | 2025-08-10 12:02 | XMS_ITS | Encounter Summary ---
Author Organization [facility] Address [address] [place] [address] Phone Care Team Providers Care Service Delivery Management Consultant Name Role Phone Domenic Beckham MD Primary Care Provider Leonor Frias RN Unavailable Alexandra Noonan RN Unavailable [phone] Encounter Details Date Type Department Care Team (Late st Contact Info) Description 01/07/2024 Transcribe Orders [facility] [address] [place] [address] Domenic Beckham MD [address] [place] [address] Dr ESPANA [place], [place] [phone] Essential hematuria (Primary Dx) Social History Tobacco Use Types [...] EDT Office Visit [facility] [address] [place] [address] [place] [address] Domenic Beckham MD [address] [place] [address] [place] [address] documented as of this encounter Results * Urine culture (01/07/2024 11:08 AM EST) Special Requests None 01/07/2024 11:08 AM EST [facility] Urine Culture NO GROWTH 48HRS 01/09/2024 8:15 AM EST [facility] Urine (Urine) 01/07/2024 11: 08 AM EST 01/07/2024 1:27 PM EST us Domenic Beckham MD MICROBIOLOGY - GENERAL ORDERABLES Final Result Performing Organization Address City/State/[facility] Co de Phone Number [facility] [address] [place] [address] * (ABNORMAL) URINALYSIS WITH SEDIMENT (01/07/2024 11:08 AM EST) WBC 0-4(A) NONE SEEN /hpf [facility] RBC 0-2(A) NONE SEEN /hpf [facility] URINE EPITHELIAL 0-4(A) NONE SEEN [facility] MUCUS NONE SEEN NONE SEEN /hpf [facility] BACTERIA Trace(A) NONE SEEN /hpf [facility] COLOR Yellow Yellow [facility] CLARITY Clear [facility] GLUCOSE 1+(A) Negative [facility] BILI Negative Negative [facility] KETONES Negative Negative [facility] SPECIFIC GRAVITY 1.015 1.005 - 1.030 [facility] BLOOD Negative Negative [facility] PH 6.5 5.0 - 8.0 [facility] Protein-UA Trace(A) Negative [facility] NITRITE Negative Negative [facility] Leukocyte esterase, ur Negative Negative [facility] Urine (Urine) 01/07/2024 11: 08 AM EST 01/07/2024 1:26 PM EST us Domenic Beckham MD URINE ORDERABLES Final Result [address] [address] documented in this encounter Visit Diagnoses Diagnosis Essential hematuria- Primary Hematuria, unspecified documented in this encounter Care Teams Service Delivery Management Consultant Relationship Specialty Start Date End Date Domenic Beckham MD [address] [place] [address] Dr MEDELLIN [address] [place] [address] PCP - General 09/02/17 Leonor Frias RN [address] [place] [address] Registered Nurse 04/22/20 01/18/24 Alexandra Noonan RN [address] [place] [address] Registered Nurse 01/19/24 documented as of this encounter Additional Source Comments The information contained in this document represents components of the legal health record. It is not the complete legal health record.[facility]
--- OUTSIDE RECORDS SUMMARY | 2025-08-10 12:02 | XMS_ITS | Encounter Summary ---
Author Organization [facility] Address [address] [facility] [address] [place] [address] Phone Care Team Providers Care Marketing Designer Name Role Phone Domenic Beckham MD Primary Care Provider Leonor Frias RN Unavailable [phone] Alexandra Noonan RN Unavailable [phone] Encounter Details Date Type Department Care Team (Latest Contact Info) Description 08/22/2020 Transcribe Orders [facility] Laboratory [address] [address] [place], [place] [address] [place] [address] Gastroesophageal reflux disease without esophagitis (Primary Dx); Diverticulosis of large intestine without diverticulitis; Rectal bleeding Social History Tobacco Use Types Packs/Day Years [...] EDT Office Visit [facility] [address] [place] [address] [place] [address] Domenic Beckham MD [address] [place] [address] [place] [address] documented as of this encounter Results * Ferritin (08/22/2020 3:48 PM EDT) FERRITIN 43 30 - 400 ug/L [facility] Blood 08/22/2020 3:48 PM EDT 08/22/2020 3:51 PM EDT [facility] LAB BLOOD ORDERABLES Final Result Performing Organization Address City/[facility]/ZIP Co de Phone Number [address] [address] * (ABNORMAL) Iron and iron binding capacity (08/22/2020 3:48 PM EDT) IRON 37(L) 45 - 160 ug/dL [facility] IRON BINDING CAPACITY 270 228 - 428 ug/dL [facility] TRANSFERRIN SATURAT. 14(L) 20 - 55 % [facility] Blood 08/22/2020 3:48 PM EDT 08/22/2020 3:51 PM EDT us [place] [facility] LAB BLOOD ORDERABLES Final Result [address] [address] * (ABNORMAL) CBC (08/22/2020 3:48 PM EDT) WBC 6.68 4.00 - 11.00 K/uL [facility] Comment:Note Reference Range updates to all CBC and Differential results. RBC 3.50(L) 3.90 - 5.69 M/uL [facility] HGB 9.2(L) 12.4 - 17.3 g/dL [facility] Comment:Note updated Referen ce Ranges for all CBC and Differential results. HCT 29.2(L) 37.0 - 51.0 % [facility] PLT 210 140 - 430 K/uL [facility] MCV 83.4 78.0 - 97.0 fL [facility] MCH 26.3 25.0 - 33.0 pg [facility] MCHC 31.5(L) 32.0 - 36.0 g/dL [facility] RDW 15.7(H) 11.0 - 15.0 % [facility] MPV 11.0 8.4 - 12.8 fl [facility] NRBC 0.00 0 /100 WBCs [facility] ABSOLUTE NRBC 0.00 0 K/uL [facility] Blood 08/22/2020 3:48 PM EDT 08/22/2020 3:51 PM EDT [place] [facility] LAB BLOOD ORDERABLES Final Result [address] [address] documented in this encounter Visit Diagnoses Diagnosis Gastroesophageal reflux disease without esophagitis- Primary Esophageal reflux Diverticulosis of large intestine without diverticulitis Diverticulosis of colon (without mention of hemorrhage) Rectal bleeding Hemorrhage of rectum and anus documented in this encounter Care Teams Marketing Designer Relationship Specialty Start Date End Date Domenic Beckham MD [address] [place] [address] Dr MEDELLIN [address] [place] [address] PCP - General 09/02/17 Leonor Frias, RN [address] [place] [address] Registered Nurse 04/22/20 01/18/24 Alexandra Noonan RN [address] [place] [address] Registered Nurse 3/6/24 documented as of this encounter Additional Source Comments The information contained in this document represents components of the legal health record. It is not the complete legal health record.[facility]
--- OUTSIDE RECORDS SUMMARY | 2025-08-10 12:02 | XMS_ITS | Encounter Summary ---
Author Organization [facility] Address [address] [facility] [address] [place] [address] Phone Care Team Providers Care Sales Estimator Name Role Phone Domenic Beckham MD Primary Care Provider Leonor Frias RN Unavailable [phone] Alexandra Noonan RN Unavailable [phone] Encounter Details Date Type Department Care Team (Late st Contact Info) Description 07/04/2020 Transcribe Orders [facility] [address] [place] [address] Domenic Beckham MD [address] [place] [address] [place] [address] Iron deficiency anemia, unspecified iron deficiency anemia type (Primary Dx) Social History Tobacco Use [...] EDT Office Visit [facility] [address] [place] [address] [place] [address] Domenic Beckham MD [address] [place] [address] [place] [address] documented as of this encounter Results * (ABNORMAL) CBC and differential (07/04/2020 9:00 AM EDT) WBC 5.77 4.00 - 11.00 K/uL [facility] Comment:Note Reference Range updates to all CBC and Differential results. RBC 3.56(L) 3.90 - 5.69 M/uL [facility] HGB 9.4(L) 12.4 - 17.3 g/dL [facility] Comment:Note updated Referen ce Ranges for all CBC and Differential results. HCT 28.6(L) 37.0 - 51.0 % [facility] PLT 170 140 - 430 K/uL [facility] MCV 80.3 78.0 - 97.0 fL [facility] MCH 26.4 25.0 - 33.0 pg [facility] MCHC 32.9 32.0 - 36.0 g/dL [facility] RDW 16.2(H) 11.0 - 15.0 % [facility] MPV 11.3 8.4 - 12.8 fl [facility] NRBC 0.00 0 /100 WBCs [facility] ABSOLUTE NRBC 0.00 0 K/uL [facility] DIFF METHOD Auto [facility] NEUTS 67.9 43.0 - 75.0 % [facility] LYMPHS 17.2(L) 18.2 - 47.4 % [facility] MONOS 8.7 4.00 - 11.00 % [facility] EOS 5.2 0.0 - 8.0 % [facility] BASOS 0.5 0.0 - 2.0 % [facility] Granulocytes, immature (%) 0.5 0.0 - 0.9 % [facility] ABSOLUTE NEUTS 3.92 1.80 - 7.70 K/uL [facility] ABSOLUTE LYMPHS 0.99(L) 1.00 - 3.10 K/uL [facility] ABSOLUTE MONOS 0.50 0.20 - 0.80 K/uL [facility] ABSOLUTE EOS 0.30 0.00 - 0.80 K/uL [facility] ABSOLUTE BASOS 0.03 0.00 - 0.09 K/uL [facility] Granulocytes, immature 0.03 0.00 - 0.05 K/uL [facility] Blood 07/04/2020 9:00 AM EDT 07/04/2020 9:03 AM EDT us Domenic Beckham MD LAB BLOOD ORDERABLES Fi nal Result Performing Organization Address City/[facility] Co de Phone Number [address] [address] * (ABNORMAL) Iron and iron binding capacity (07/04/2020 9:00 AM EDT) IRON 30(L) 45 - 160 ug/dL [facility] IRON BINDING CAPACITY 293 228 - 428 ug/dL [facility] TRANSFERRIN SATURAT. 10(L) 20 - 55 % [facility] Blood 07/04/2020 9:00 AM EDT 07/04/2020 9:03 AM EDT us Domenic Beckham MD LAB BLOOD ORDERABLES Fi nal Result Performing Organization Address City/[facility]/ZIP Co de Phone Number [address] [address] documented in this encounter Visit Diagnoses Diagnosis Iron deficiency anemia, unspecified iron deficiency anemia type- Primary documented in this encounter Care Teams Sales Estimator Relationship Specialty Start Date End Date Domenic Beckham MD [address] [place] [address] [place] [address] PCP - General 09/02/17 Leonor Frias, RN [address] [place] [address] Registered Nurse 04/22/20 01/18/24 Alexandra Noonan, RN [address] [place] [address] Registered Nurse 01/19/24 documented as of this encounter Additional Source Comments The information contained in this document represents components of the legal health record. It is not the complete legal health record.[facility]
--- OUTSIDE RECORDS SUMMARY | 2025-08-10 12:03 | XMS_ITS | Encounter Summary ---
Author Organization [facility] Address [address] [facility] [address] [place] [address] Phone Care Team Providers Care Senior Sql Dba Name Role Phone Domenic Beckham MD Primary Care Provider Leonor Frias RN Unavailable [phone] Alexandra Noonan RN Unavailable [phone] Encounter Details Date Type Department Care Team (Late st Contact Info) Description 11/28/2018 Ancillary [facility] [address] [place] [address] Danielle Servin MD [address] [place], [place] [id number] [email or web address] Social History Tobacco Use Types Packs/Day Years [...] EDT Office Visit [facility] [address] [place] [address] [place] [address] Domenic Beckham MD [address] [place] [address] [place] [address] documented as of this encounter Visit Diagnoses Not on filedocumented in this encounter Additional Health Concerns Infection Onset Date Last Indicated Resolved Time CoV-Risk Comment:Asymptomatic since adm; PCRs neg. D/C per Anita Choe 03/05/2020 03/05/2020 03/06/2020 1:21 PM EDT CoV-Risk 05/10/2020 05/13/2020 05/16/2020 4:06 PM EDT documented as of this encounter Care Teams Senior Sql Dba Relationship Specialty Start Date End Date Domenic Beckham MD [address] [place] [address] Dr MEDELLIN [address] [place] [address] PCP - General 09/02/17 Leonor Frias, RN [address] [place] [address] Registered Nurse 04/22/20 01/18/24 Alexandra Noonan RN [address] [place] [address] Registered Nurse 01/19/24 documented as of this encounter Additional Source Comments The information contained in this document represents components of the legal health record. It is not the complete legal health record.[facility]
--- OUTSIDE RECORDS SUMMARY | 2025-08-10 12:03 | XMS_ITS | Patient Health Record ---
Author Organization [facility] Address [address] [place] [address] Care Team Providers Care Mandrel Puller Name Role Phone [place] VILLANUEVA, Domenic Primary Care Provider Jason Ulloa [phone] Reason For Referral No Information Medications Medication SIG (Take, Route, Frequency, Duration) Notes Start Date End Date Status Vitamin C 500 MG 1 tablet Orally Once a day Active Aspir-81 81 MG 1 tablet Orally Once a day Active Vitamin B Complex-C 1 1 Orally QD Active Ibuprofen 200 MG 1 tablet as needed O rally every 6 hrs Active Digoxin 250 MCG 1 tablet Orally Once a day Active Vitamin D 1000 UNIT 1 tablet Orally Once a day Active Lipitor 40 MG 1 tablet Orally Once a day Active metFORMIN HCl 1000 MG 1 tablet with meal s Orally Twice a day Active Xarelto 10 MG 1 tablet Orally Once a day Active Lisinopril 20 MG 1 tablet Orally Once a day Active Fluticasone Propionate 50 MCG/ACT 1 spray in each nostril Nasally Once a day/prn Active dilTIAZem HCl ER Coated Beads 360 MG TAKE ONE CAPSULE BY MOUTH EVERY DAY Oral Once a day Active Ventolin HFA 108 (90 Base) MCG/ACT 2 puffs as needed Inhalation every 4 hrs/prn Active Isosorbide Mononitrate ER 30 MG 1 tablet Orally Once a day Active Pantoprazole Sodium 40 MG 1 tablet Orall y Once a day Active Furosemide 20 MG 2 tablet Orally Once a day Active Fish Oil 1000 MG 1 capsule Orally Onc e a day Active Immunizations Vaccine Route Administration Date Status Comme nts Flu vaccine no Preserv 3 and > Unknown 09/05/2014 Admin istered Flu vaccine no Preserv 3 and > Unknown 09/24/2015 Admin istered Influenza Unknown 07/16/2017 Administered Influenza Unknown 09/15/2018 Administered Problems Problem Type SNOMED Code ICD Code Onset Dates Problem Status W/U Status Risk Notes Problem 740075287 Encounter for screening for malignant neoplasm of colon (Z12.11) Active confirmed Problem 247116105 History of adenomatous polyp of colon (Z86.010) Active confirmed Problem 585860757 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) Active confirmed Problem 158203052 Radiation procti tis (K62.7) Active confirmed Problem Screening for malignant neoplasm of rectum (469210955) Encounter for screening for malignant neoplasm of rectum (Z12.12) Active confirmed Problem 473594026 Gastroesophageal reflux disease without esophagitis (K21.9) Active confirmed Problem 955931473 Iron deficiency anemia due to chronic blood loss (D50.0) Active confirmed Problem 305869200 Anemia, unspecif ied type (D64.9) Active confirmed Problem 78865327 Diarrhea, unspecified type (R19.7) Active confirmed Problem 638722720763903 History of Clostridium difficile infection (Z86.19) Active confirmed Problem 4947161823682 Clostridium difficile diarrhea (A04.72) Active confirmed Problem 90627616 Diarrhea of presumed infectious origin (R19.7) Active confirmed Plan Of Treatment Pending Test Test Name Order Date IRON + IBC (FE) 04/19/2018 FERRITIN 04/19/2018 VITAMIN B12 AND FOLATE 04/19/2018 CBC w DIFF 04/19/2018 CLOSTRIDIUM DIFF TOXIN A&B (C DIFF) 10/15 CLOSTRIDIUM DIFF TOXIN A&B (C DIFF) 05/16 Future Test Test Name Order Date UPPER GI ENDOSCOPY 11/10/2011 COLONOSCOPY 11/10/2011 UPPER GI ENDOSCOPY 09/16/2016 COLONOSCOPY 09/16/2016 Insurance Providers Payer Name Payer Address Payer Phone Subscriber Number Group Number Insured Name Patient Relationship to Insured Coverage Start Date Coverage End Date [employer] OF [place] [address] [place] [phone] [id number] ZANDER CANNON Self - patient is the insured [employer] [address] [place] [address] [id number] ZANDER CANNON Self - patient is the insured Medical (General) History Medical History History ICD Code GERD with Hdez's esophagu s and a hiatal hernia--his upper endoscopy in 2003 revealed Hdez's esophagus and esophagitis, but a followup endoscopy in in December of 2011 revealed a moderate-sized hiatal hernia, small area of Hdez's esophagus without dysplasia, and no esophagitis--- upper endoscopy in November of 2016 revealed similar findings Tubular adenomas removed in 2003, but he had a negative followup colonoscopy in December of 2011.; Colonoscopy in November 2016 revealed small adenomas that were removed Sleep apnea, for which he uses a CPAP gavin campbell Hyperlipidemia Hypertension NIDDM He denies any history of AR, stroke, and kidney disease Allergies Asthma Prostate cancer-approx 2009- treated with XRT--changes of XRT proctitis seen on the colonoscopies, but not symptomatic Atrial fibrillation C. difficile infection x 3 2 018--treated with 2 standard courses of Vanco, then a tapering regimen from August of 2018 through early October of 2018 Surgical History Surgery Date(Month/Year) Tonsillectomy
--- OUTSIDE RECORDS SUMMARY | 2025-08-10 12:03 | XMS_ITS | Clinical Summary ---
Author Organization [facility] Address [address] [address] Phone Care Team Providers Care Manager Resort Name Role Phone Unavailable Primary Care Provider Unavailabl e Allergies Active Allergy Reactions Criticality Noted Date Comments Amiodarone Nausea And Vomiting Medium 06/04/2020 Dronedarone Nausea And Vomiting Low 06/04/2020 Metoprolol Shortness of breath High 06/04/2020 Other Medium 01/17/2020 Mold , Asthma like symptoms Medications albuterol HFA (PROVENTIL HFA;VENTOLIN HFA) 108 (90 Base) MCG/ACT inhaler Take 2 puffs by mouth 0 Active atorvastatin (LIPITOR) 40 MG tablet 1 Active dilTIAZem (TIAZAC) 240 MG 24 hr capsule Take 480 mg by mouth in the morning. 0 Active ferrous sulfate ER (SLOW IRON) 140 (45 Fe) MG tablet Take 140 mg by mouth daily Active fluticasone (FLONASE) 50 MCG/ACT nasal spray Administer 2 sprays into affected nostril(s) daily Active furosemide (LASIX) 20 MG tablet Take 20 mg by mouth daily 0 Active gabapentin (NEURONTIN) 300 MG capsule Take 300 mg by mouth daily Active isosorbide mononitrate (IMDUR) 60 MG 24 hr tablet 1 Active lisinopril 5 MG tablet 1 Active magnesium oxide 250 MG tablet Take 250 mg by mouth twice a day Active warfarin (COUMADIN) 5 MG tablet 1 Active b complex vitamins capsule Take 1 capsule by mouth 1 (one) time each day Active Ascorbic Acid (vitamin C) 100 MG tablet Take 100 mg by mouth 1 (one) time each day Active Synjardy XR 12.5-1000 MG tablet sustained-releas e 24 hour TAKE 2 TABLETS BY MOUTH EVERY DAY 180 tablet 5 3 Active amiodarone (PACERONE) 200 MG tablet Take 200 mg by mouth in the morning. 4 Active metoprolol tartrate 25 MG tablet Take 25 mg by mouth in the morning and 25 mg in the evening. 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 Diabetes mellitus without complication 3 Diabetic peripheral neuropat hy associated with type 2 diabetes mellitus 05/14/2023 Hearing loss 05/14/2023 History of malignant neoplasm of prostate 2022 Iron deficiency anemia 05/14/2023 Lipoprotein deficiency disorder 05/14/2023 Tubular adenoma 05/14/2023 Sciatica 05/14/2023 Pure hypercholesterolemia 05/14/2023 Plantar fascial fibromatosis 05/14/2023 Renal osteodystrophy 05/14/2023 Morbid obesity 05/14/2023 Mild intermittent asthma 05/14/2023 Lightheadedness 04/22/2023 Chronic kidney disease, stage 2 (mild) 2 Type 2 diabetes mellitus wit h diabetic chronic kidney disease 11/17/2021 Ventricular premature complex 07/31/2021 Overview (11/17/2021): Last Assessment & Plan: Bigeminy on EKG, he is asymptomatic. He has not had a full echocardiogram in multiple years we will update this to reassess LV function and also Hypertension 06/04/2020 Long-term current use of anticoagulant 0 Acute nontraumatic kidney injury 03/06/2020 Overview (11/17/2021): Last Assessment & Plan: Due to blood loss, resolving, creatinine trending back down to baseline, okay to restart furosemide and lisinopril Wednesday Gastrointestinal hemorrhage 03/06/2020 Overview (11/17/2021): Last Assessment & Plan: Presented with confusion, lethargy, large GI bleed [...] 2 weeks and following up with his manager academic regarding restarting We will also check a CBC at home tomorrow as well as Wednesday Hyperlipidemia 04/27/2019 Obstructive sleep apnea syndrome 04/27/2019 Overview (11/17/2021): Last Assessment & Plan: -- Will continue with [facility] provided CPAP nocturnally per usual home Rx Patient's home setting is 12cm H20 Dyspnea on exertion 01/19/2019 Other specified soft tissue disorder 01/19/2019 Aortic valve disorder 10/21/2018 Overview (11/17/2021): Last Assessment & Plan: Moderate aortic stenosis this is not changed much. Asymptomatic. We will repeat his echocardiogram in 1 year he also does have some moderate mitral regurgitation. Chronic atrial fibrillation 04/08/2018 Overview (11/17/2021): Last Assessment & Plan: Anticoagulated as above, on hold C/w diltiazem, Lipitor, multaq, okay to restart furosemide wednesday, continue lisinopril wednesday, Chronic diastolic heart failure 04/08/2018 Overview (11/17/2021): Last Assessment & Plan: He is euvolemic on exam and is not describing any heart failure symptoms at this time. Continue current dose of diuretic. Last Assessment & Plan: Appears euvolemic. Reviewed signs and symptoms of heart failure and educated regarding monitoring weight, diet, and fluid intake. If there is a weight gain of 3 pounds in one day or 5 pounds in a week please call our office or seek medical attention if necessary. Chronic peripheral venous hypertension 8 Overview (11/17/2021): Last Assessment & Plan: Mostly left leg edema. Not much pain. No skin breakdown. I would just keep an eye on this. Stockings will be difficult because of his significant back pain right now. Coronary atherosclerosis 04/08/2018 Overview (11/17/2021): Last Assessment & Plan: Known single-vessel coronary disease with a diagonal branch. He has no angina. He has mild plaquing elsewhere. Because of this and his diabetes I do suggest going back on a baby aspirin as a Xarelto would not necessarily protect him from atherosclerotic events. If he has bleeding with the addition of baby aspirin we will rediscuss. Essential hypertension 04/08/2018 Overview (11/17/2021): Last Assessment & Plan: As above sbp 150 Last Assessment & Plan: Elevated today, he tells me he did not take his medications yet. I advised him to watch this at home 1 to 2 hours after his medications. Call us for consistently elevated readings. Nonrheumatic aortic valve stenosis 04/08/2018 Overview (11/17/2021): Last Assessment & Plan: Known mild aortic stenosis exams (repeat echocardiogram to evaluate in over a year. Last Assessment & Plan: Updating echocardiogram Encounters Date Type Department Care Team Description 05/31/2025 2:15 PM EDT [facility] [address] [address] Chi Arellano MD Stage 3b chronic kidney disease (HCC) (Primary Dx); Type 2 diabetes mellitus with diabetic chronic kidney disease (HCC); Renal osteodystrophy from Last 3 Months Immunizations Immunization Administration Dates Next Due Hep A / Hep B 11/22/2012,05/31/2012,05/04/2012 Tdap 05/04/2012 Social History Tobacco Use Types Packs/Day Years Used Date Smoking Tobacco: Former Smokeless Tobacco: Never Tobacco Cessation:Counseling Given: No Alcohol Use Standard Drinks/Week Comments Not Currently 0 (1 standard drink = 0.6 oz pur e alcohol) Sex and Gender Information Value Date Recorded Sex Assigned at Not on file Legal Sex Male 12:32 PM EST Gender Identity Not on file Sexual Orientation Not on file Last Filed Vital Signs Vital Sign Reading Time Taken Comments Blood Pressure 134/62 05/31/2025 2:26 PM EDT Pulse 77 05/31/2025 2:26 PM EDT Temperature - - Respiratory Rate - - Oxygen Saturation 97% 05/31/2025 2:26 PM EDT Inhaled Oxygen Concentration - - Weight 104 kg (229 lb) 05/31/2025 2:26 PM EDT Height 175.3 cm (5' 9 ) 05/19/2022 2:08 PM EDT Body Mass Index 33.82 05/19/2022 2:08 PM EDT Plan of Treatment Upcoming Encounters Date Type Department Care Team (Late st Contact Info) Description 02/28/2026 1:00 PM EDT Office Visit [facility] [address] [address] Chi Arellano MD [facility] [address] Health Maintenance Due Date Last Done Comments Pneumococcal Vaccine: 50+ Ye ars (1 of 2 - PCV) 02/12/1964 Diabetes: Ophthalmology Exam 11/17/2021 Diabetes: Pedal Pulse Checked 11/17/2021 Diabetes: Sensory Foot Exam 11/17/2021 Diabetes: Visual Foot Exam 11/17/2021 Diabetes: Hemoglobin A1C 08/12/2024 024, 05/19/2023, 11/17/2021 Influenza Vaccine (#1) 2025 Hepatitis B Vaccine Completed 11/22/2012, 05/31/2012, 05/04/2012 Procedures Procedure Name Priority Date/Time Associated Diagnosis Comments MAGNESIUM Routine 05/29/2025 2:08 PM EDT Stage 3b chronic kidney disease (HCC) Type 2 diabetes mellitus with diabetic chronic kidney disease (HCC) Renal osteodystrophy CBC Routine 05/29/2025 2:08 PM EDT Stage 3b chronic kidney disease (HCC) Type 2 diabetes mellitus with diabetic chronic kidney disease (HCC) Renal osteodystrophy VITAMIN D 25 HYDROXY Routine 05/29/2025 2:08 PM EDT Stage 3b chronic kidney disease (HCC) Type 2 diabetes mellitus with diabetic chronic kidney disease (HCC) Renal osteodystrophy PROTEIN / CREATININE RATIO, URINE Routine 05/29/2025 2:08 PM EDT Stage 3b chronic kidney disease (HCC) Type 2 diabetes mellitus with diabetic chronic kidney disease (HCC) Renal osteodystrophy URINE CULTURE Routine 05/29/2025 2:08 PM EDT Stage 3b chronic kidney disease (HCC) Type 2 diabetes mellitus with diabetic chronic kidney disease (HCC) Renal osteodystrophy URINE ALBUMIN / CREATININE RATIO Routine 05/29/2025 2:08 PM EDT Stage 3b chronic kidney disease (HCC) Type 2 diabetes mellitus with diabetic chronic kidney disease (HCC) Renal osteodystrophy URINALYSIS WITH MICROSCOPIC Routine 05/29/2025 2:08 PM EDT Stage 3b chronic kidney disease (HCC) Type 2 diabetes mellitus with diabetic chronic kidney disease (HCC) Renal osteodystrophy RENAL FUNCTION PANEL Routine 05/29/2025 2:08 PM EDT Stage 3b chronic kidney disease (HCC) Type 2 diabetes mellitus with diabetic chronic kidney disease (HCC) Renal osteodystrophy PTH, INTACT Routine 05/29/2025 2:08 PM EDT Stage 3b chronic kidney disease (HCC) Type 2 diabetes mellitus with diabetic chronic kidney disease (HCC) Renal osteodystrophy RESULT Routine 05/29/2025 2:08 PM EDT MICROSCOPIC EXAMINATION - DO NOT USE Routine 05/29/2025 2:08 PM EDT HEMOGLOBIN A1C Routine 05/19/2023 2:13 PM EDT Chronic kidney disease, stage 2 (mild) Hypertension Type 2 diabetes mellitus with diabetic chronic kidney disease (HCC) from Last 3 Months or Most Recently Relevant to Health Maintenance Results * Result (05/29/2025 2:08 PM EDT) Result No growth [facility] [place] [facility] 05/29/2025 2:08 PM EDT 05/29/2025 us Chi Arellano MD LAB MICROBIOLOGY - GENERAL OR DERABLES Final Result [facility] [address] [place] [address] * Microscopic Examination (05/29/2025 2:08 PM EDT) WBC, Urine None seen 0 - 5 /hpf [facility] RBC, Urine None seen 0 - 2 /hpf [facility] Squamous Epithelial, Urine None seen 0 - 10 /hpf [facility] Casts None seen None seen /lpf [facility] Bacteria, Urine None seen None seen/Few [facility] 05/29/2025 2:08 PM EDT 05/29/2025 Chi Arellano MD LAB MICROBIOLOGY - GENERAL OR DERABLES Final Result Performing Organization Address City/[facility]/ZIP Co de Phone Number [facility] [address] [place] [address] * Protein, Total, Random Urine w/Creatinine (Protein/Creat Ratio) (05/29/2025 2:08 PM EDT) Creatinine, Ur 57.3 Not Estab. mg/dL [facility] Protein, Ur 9.0 Not Estab. mg/dL [facility] Urine Protein/Creatin ine Ratio 157 0 - 200 mg/g creat [facility] Urine specimen (specimen) Urine specimen obtained by clean catch procedure / Unknown 05/29/2025 2:08 PM EDT 05/29/2025 Comment:UR Chi Arellano MD LAB URINE ORDERABLES Final Re sult [facility] [address] [place] [address] * Urine Albumin / Creatinine Ratio (05/29/2025 2:08 PM EDT) Albumin, Urine 15.8 Not Estab. ug/mL [facility] Albumin/Creatin ine Ratio 28 0 - 29 mg/g creat [facility] Comment: Normal: 0 - 29 Moderately increased: 30 - 300 Severely increased: >300 Urine specimen (specimen) Urine specimen obtained by clean catch procedure / Unknown 05/29/2025 2:08 PM EDT 05/29/2025 Comment:UR Chi Arellano MD LAB URINE ORDERABLES Final Re sult Performing Organization Address City/[facility]/ZIP Co de Phone Number [facility] [address] [place] [address] * (ABNORMAL) Vitamin D 25 Hydroxy (05/29/2025 2:08 PM EDT) Vitamin D, 25-OH, Total 29.6(L) 30.0 - 100.0 ng/mL [facility] Comment: Vitamin D deficiency has been defined by the [place] of Medicine and an Endocrine Society practice guideline as a level of serum 25-OH vitamin D less than 20 ng/mL (1,2). The Endocrine Society went on to further define vitamin D insufficiency as a level between 21 and 29 ng/mL (2). 1. IOM ([place] of Medicine). 2010. Dietary reference intakes for calcium and D. [place]: The National Academies Press. 2. Pricila MF, [place], David BLANTON, et al. Evaluation, treatment, and prevention of vitamin D deficiency: an Endocrine Society clinical practice guideline. JCEM. 2010; 96(7):1911-30. Blood specimen (specimen) Venous blood / Unknown 05/29/2025 2:08 PM EDT 05/29/2025 Chi Arellano MD LAB BLOOD ORDERABLES Final Re sult Performing Organization Address City/[facility]/ZIP Co de Phone Number [facility] [address] [place] [address] * (ABNORMAL) Urinalysis with microscopic (05/29/2025 2:08 PM EDT) Specific [place], Urine 1.016 1.005 - 1.030 [facility] pH Urine 6.0 5.0 - 7.5 [facility] Color, Urine Yellow Yellow [facility] Appearance Urine Clear Clear [facility] WBC Esterase Urine Negative Negative [facility] [phone] Protein, Ur Negative Negative/Tra ce [facility] Glucose, Ur 1+(A) Negative [facility] Ketones, Urine Negative Negative [facility] Blood Urine Negative Negative [facility] Bilirubin Urine Negative Negative [facility] [phone] Urobilinogen Urine 0.2 0.2 - 1.0 mg/dL [facility] Nitrite, Urine Negative Negative [facility] Microscopic Examination Comment [facility] [phone] Comment:Microscopic follows if indicated. Other Microsc. Observations See below: [facility] Comment:Microscopic was dewey cated and was performed. Urine specimen (specimen) Urine specimen obtained by clean catch procedure / Unknown 05/29/2025 2:08 PM EDT 05/29/2025 us Chi Arellano MD LAB URINE ORDERABLES Final Re sult [facility] [address] [place] [address] * CBC (05/29/2025 2:08 PM EDT) WBC 7.1 3.4 - 10.8 x10E3/uL [facility] RBC 4.86 4.14 - 5.80 x10E6/uL [facility] Hemoglobin 13.9 13.0 - 17.7 g/dL [facility] Hematocrit 43.3 37.5 - 51.0 % [facility] MCV 89 79 - 97 fL [facility] MCH 28.6 26.6 - 33.0 pg [facility] MCHC 32.1 31.5 - 35.7 g/dL [facility] RDW 15.3 11.6 - 15.4 % [facility] Platelets 161 150 - 450 x10E3/uL [facility] Blood specimen (specimen) Venous blood / Unknown 05/29/2025 2:08 PM EDT 05/29/2025 Chi Arellano MD LAB BLOOD ORDERABLES Final Re sult [facility] [address] [place] [address] * Urine Culture (05/29/2025 2:08 PM EDT) Culture Result, Urine Final report [facility] Urine specimen (specimen) Urine specimen obtained by clean catch procedure / Unknown 05/29/2025 2:08 PM EDT 05/29/2025 Comment:UR Chi Arellano MD LAB URINE ORDERABLES Final Re sult [facility] [address], [address] [place] [address] * (ABNORMAL) PTH, Intact (05/29/2025 2:08 PM EDT) PTH 99(H) 15 - 65 pg/mL [facility] Blood specimen (specimen) Venous blood / Unknown 05/29/2025 2:08 PM EDT 05/29/2025 Chi Arellano MD LAB BLOOD ORDERABLES Final Re sult Performing Organization Address City/[facility]/ZIP Co de Phone Number [facility] [address] [place] [address] * (ABNORMAL) Magnesium (05/29/2025 2:08 PM EDT) Magnesium 2.4(H) 1.6 - 2.3 mg/dL [facility] Blood specimen (specimen) Venous blood / Unknown 05/29/2025 2:08 PM EDT 05/29/2025 Comment:UR Chi Arellano MD LAB BLOOD ORDERABLES Final Re sult Performing Organization Address [facility] Co de Phone Number [facility] [address] [place] [address] * (ABNORMAL) Renal Function Panel (05/29/2025 2:08 PM EDT) Glucose 78 70 - 99 mg/dL [facility] BUN 39(H) 8 - 27 mg/dL [facility] Creatinine 1.74(H) 0.76 - 1.27 mg/dL [facility] eGFR CKD-EPI CR 2020 39(L) >59 mL/min/1.7 3 [facility] BUN/Creatinine Ratio 22 10 - 24 [facility] Sodium 145(H) 134 - 144 mmol/L [facility] Potassium 4.6 3.5 - 5.2 mmol/L [facility] Chloride 104 96 - 106 mmol/L [facility] Bicarbonate (CO2) 22 20 - 29 mmol/L [facility] Calcium 9.2 8.6 - 10.2 mg/dL [facility] Albumin 4.5 3.7 - 4.7 g/dL [facility] Phosphorus 3.6 2.8 - 4.1 mg/dL [facility] Blood specimen (specimen) Venous blood / Unknown 05/29/2025 2:08 PM EDT 05/29/2025 Comment:UR us Chi Arellano MD LAB BLOOD ORDERABLES Final Re sult [facility] [address] [place] [address] * (ABNORMAL) Hemoglobin A1c (05/19/2023 2:13 PM EDT) Hemoglobin A1C 5.7(H) (4.0-5.6) % [facility] Comment: MONITORING: In known diabetic patients, hemoglobin A1c targets should be discussed with health care provider. DIAGNOSTIC USE: The [place] Diabetes Association (ADA) and the World Health Organization (WHO) recommend the use of HbA1c to diagnose diabetes using a threshold of 6.5%. Patients who have an HbA1c between 5.7% and 6.4% are considered at increased risk for developing diabetes in the future. CAUTION: Falsely low HbA1c results may be observed in patients with hemolytic anemia, homozygous forms of abnormal hemoglobin (e.g. SS, CC, SC), , recent blood loss or hemoglobin F greater than 7%. Fructosamine may be used as an alternate test in these cases. REFERENCE: ADA: Standards of Medical Care in Diabetes 2020, The Journal of Clinical and Applied Research and Education Volume 43, Supplement 1 Testing performed or reported by [facility], a Service of [facility], [address] [place] [address] Arnol Steward MD, [employer] [facility]# [id number] Blood specimen (specimen) Venous blood / Unknown 05/19/2023 2:13 PM EDT 05/19/2023 2:23 PM EDT Vasquez Carr MD LAB BLOOD ORDERABLES Final Re sult [email or web address] from Last 3 Months or Most Recently Relevant to Health Maintenance Insurance Medicare [facility] Medicare [facility] Medicare [facility]
--- OUTSIDE RECORDS SUMMARY | 2025-08-10 12:03 | XMS_ITS | Encounter Summary ---
Author Organization [facility] Address [address] [facility] [address] [place] [address] Phone Care Team Providers Care Veterinary Attendant Name Role Phone Domenic Beckham MD Primary Care Provider [phone] Reason for Visit * Reason Comments Med Refill Encounter Details Date Type Department Care Team (Late Contact Info) Description 12/19/2023 Refill [facility] [address] [facility] [address] [place] [address] Vasquez Carr MD [address] [place] [phone] Social History Tobacco Use Types Packs/Day Years Used Date Smoking Tobacco: Former Smokeless Tobacco: Never Alcohol Use Standard Drinks/Week Comments Not Currently 0 (1 standard drink = 0.6 oz pur e alcohol) Sex and Gender Information Value Date Recorded Sex Assigned at Not on file Legal Sex Male 12:32 PM EST Gender Identity Not on file Sexual Orientation Not on file documented as of this encounter Plan of Treatment Upcoming Encounters Date Type Department Care Team (Late st Contact Info) Description 02/28/2026 1:00 PM EDT Office [facility] [phone] Chi Arellano MD [address] [facility] [address] [place] [address] documented as of this encounter Visit Diagnoses Not on filedocumented in this encounter Care Teams Veterinary Attendant Relationship Specialty Start Date End Date Domenic Beckham MD [address] [place] [address] [address] [place] PCP - General Internal Medicine 10/08/21 01/03/24 documented as of this encounter
--- OUTSIDE RECORDS SUMMARY | 2025-08-10 12:03 | XMS_ITS | Encounter Summary ---
Author Organization [facility] Address [address] [facility] [address] [place] [address] Phone Care Team Providers Care Tariff Expert Name Role Phone Domenic Beckham MD Primary Care Provider Leonor Frias RN Unavailable [phone] Alexandra Noonan RN Unavailable [phone] Encounter Details Date Type Department Care Team (Latest Contact Info) Description 05/10/2020 Transcribe Orders Virtual Department [address] [place] [address] Ari Kingsley MD [address] [place] [phone] Diarrhea, unspecified type (Primary Dx); Nausea Social History Tobacco Use Types Packs/Day Years [...] Description 08/15/2025 9:20 AM EDT Office Visit [facility] [address] [place] [address] [place] [address] Domenic Beckham MD [address] [place] [address] [place] [address] documented as of this encounter Results * COVID-19 PCR Order (05/13/2020 3:30 PM EDT) Specimen Source 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 TEACHER) [facility] COVID-19 Comment DIARRHEA, NAUSEA [facility] COVID Testing Status Sent to [facility] Other 05/13/2020 3:30 PM EDT 05/13/2020 3:32 PM EDT us Ari Kingsley MD BODY FLUIDS AND STOOLS ORDERABLE S Final Result [address] [address] documented in this encounter Visit Diagnoses Diagnosis Diarrhea, unspecified type- Primary Nausea Nausea alone documented in this encounter Additional Health Concerns Infection Onset Date Last Indicated Resolved Time CoV-Risk 05/10/2020 05/13/2020 05/16/2020 4:06 PM EDT documented as of this encounter Care Teams Tariff Expert Relationship Specialty Start Date End Date Domenic Beckham MD [address] [place] [address] [place] [address] PCP - General 09/02/17 Leonor Frias, RN [address] [place] [address] Registered Nurse 04/22/20 01/18/24 Alexandra Noonan RN [address] [place] [address] Registered Nurse 01/19/24 documented as of this encounter Additional Source Comments The information contained in this document represents components of the legal health record. It is not the complete legal health record.[facility]
--- OUTSIDE RECORDS SUMMARY | 2025-08-10 12:03 | XMS_ITS | Encounter Summary ---
Author Organization [facility] Address [address] [facility] [address] [place] [address] Phone Care Team Providers Care Reprographics Technician Name Role Phone Domenic Beckham MD Primary Care Provider Leonor Frias RN Unavailable [phone] Alexandra Noonan RN Unavailable Encounter Details Date Type Department Care Team (Late st Contact Info) Description 11/24/2018 Ancillary Orders Non-Invasive Cardiology [address] [place] [address] Danielle Servin MD [address] [place], [place] [id number] [email or web address] Atrial fibrillation, unspecified type Social History [...] Office Visit [facility] [address] [place] [address] [place] [address] Domenic Beckham MD [address] [place] [address] [place] [address] Pending Results Name Type Priority Associated Diagnoses Date /Time Holter Monitor 24 Hours Cardiac Monitors Routine Atrial fibrillation, unspecified type 11/24/2018 3:35 PM EST Scheduled Orders Name Type Priority Associated Diagnoses Orde r Schedule Holter Monitor 24 Hours Cardiac Monitors Routine Atrial fibrillation, unspecified type Expected: 12/01/2018, Expires: 11/24/2019 documented as of this encounter Visit Diagnoses Diagnosis Atrial fibrillation, unspecified type documented in this encounter Additional Health Concerns Infection Onset Date Last Indicated Resolved Time CoV-Risk Comment:Asymptomatic since adm; PCRs neg. D/C per Anita Choe 03/05/2020 03/05/2020 03/06/2020 1:21 PM EDT CoV-Risk 05/10/2020 05/13/2020 05/16/2020 4:06 PM EDT documented as of this encounter Care Teams Reprographics Technician Relationship Specialty Start Date End Date Domenic Beckham MD [address] [place] [address] [place] [address] PCP - General 09/02/17 Leonor Frias RN [address] [place] [address] Registered Nurse 04/22/20 01/18/24 Alexandra Noonan RN [address] [place] [address] Registered Nurse 01/19/24 documented as of this encounter Additional Source Comments The information contained in this document represents components of the legal health record. It is not the complete legal health record.[facility]
--- OUTSIDE RECORDS SUMMARY | 2025-08-10 12:03 | XMS_ITS | Encounter Summary ---
Author Organization [facility] Address [address] [facility] [address] [place] [address] Phone Care Team Providers Care Golf Range Attendant Name Role Phone Domenic Beckham MD Primary Care Provider Leonor Frias RN Unavailable [phone] Alexandra Noonan RN Unavailable [phone] Encounter Details Date Type Department Care Team (Latest Contact Info) Description 05/10/2020 Transcribe Orders [facility] [address] [place] [address] Ari Kingsley MD [address] [facility] [address] [place] [address] Loss of weight (Primary Dx); Nausea Social History Tobacco Use [...] EDT Office Visit [facility] [address] [place] [address] [place] [address] Domenic Beckham MD [address] [place] [address] [place] [address] documented as of this encounter Results * Fecal immunochemical test x1 (FIT) (05/13/2020 7:00 AM EDT) Immuno Fecal Occult Positive [facility] Stool (Stool) 05/13/2020 7:0 0 AM EDT 05/13/2020 10:50 AM EDT us Ari Kingsley MD BODY FLUIDS AND STOOLS ORDERABLE S Final Result Performing Organization Address City/[facility]/ZIP Co de Phone Number [address] [address] * Fecal leukocyte examination (05/13/2020 7:00 AM EDT) Special Requests None 05/13/2020 10:41 AM EDT [facility] GRAM STAIN NO WBC'S Observed 05/14/2020 9:14 AM EDT [facility] Stool (Stool) 05/13/2020 7:0 0 AM EDT 05/13/2020 10:50 AM EDT us Ari Kingsley MD MICROBIOLOGY - GENERAL ORDERABLE S Final Result [address] [address] * Stool culture (05/13/2020 7:00 AM EDT) Special Requests None 05/13/2020 10:41 AM EDT [facility] Stool Culture NO SALMONELLA, SHIGELLA OR CAMPYLOBACTER ISOLATED 05/14/2020 7:50 AM EDT [facility] Stool (Stool) 05/13/2020 7:0 0 AM EDT 05/13/2020 10:50 AM EDT us Ari Kingsley MD MICROBIOLOGY - GENERAL ORDERABLE S Final Result Performing Organization Address [facility]/ZIP Co de Phone Number [address] [address] * C. DIFFICILE PCR (05/13/2020 7:00 AM EDT) C.DIFFICILE PCR Negative Negative [facility] C.DIFFICILE STRAIN PRESUMPTIVE NEGATIVE PRESUMPTIVE NEGATIVE [facility] Comment:Detection of 027/NAP 1/BI strains of C.difficile is presumptive and is solely for epidemiological purposes and is not intended to guide or monitor treatment of infections. Stool (Stool) 05/13/2020 7:0 0 AM EDT 05/13/2020 10:50 AM EDT us Ari Kingsley MD MICROBIOLOGY - GENERAL ORDERABLE S Final Result Performing Organization Address [facility]/ZIP Co de Phone Number [address] [address] * Ova and parasites, stool (05/12/2020 8:00 AM EDT) Special Requests None 05/13/2020 10:41 AM EDT [facility] DIRECT EXAM No parasites found by Trichrome Stain 05/23/2020 1:48 PM EDT [facility] DIRECT EXAM NO PARASITES FOUND BY DIRECT OR CONCENTRATION METHODS 05/23/2020 1:48 PM EDT [facility] Stool (Stool) 05/12/2020 8:0 0 AM EDT 05/13/2020 10:50 AM EDT us Ari Kingsley MD MICROBIOLOGY - GENERAL ORDERABLE S Final Result Performing Organization Address City/[facility] Co de Phone Number [address] [address] * Ova and parasites, stool (05/11/2020 2:00 PM EDT) Special Requests None 05/13/2020 10:41 AM EDT [facility] DIRECT EXAM No parasites found by Trichrome Stain 05/23/2020 2:00 PM EDT [facility] DIRECT EXAM NO PARASITES FOUND BY DIRECT OR CONCENTRATION METHODS 05/23/2020 2:00 PM EDT [facility] Stool (Stool) 05/11/2020 2:0 0 PM EDT 05/13/2020 10:49 AM EDT Ari Kingsley MD MICROBIOLOGY - GENERAL ORDERABLE S Final Result Performing Organization Address [facility] Co de Phone Number [address] [address] * Ova and parasites, stool (05/10/2020 11:00 PM EDT) Special Requests None 05/13/2020 10:40 AM EDT [facility] DIRECT EXAM No parasites found by Trichrome Stain 05/23/2020 1:39 PM EDT [facility] DIRECT EXAM NO PARASITES FOUND BY DIRECT OR CONCENTRATION METHODS 05/23/2020 1:39 PM EDT [facility] Stool (Stool) 05/10/2020 11: 00 PM EDT 05/13/2020 10:46 AM EDT Ari Kingsley MD MICROBIOLOGY - GENERAL ORDERABLE S Final Result Performing Organization Address [facility] Co de Phone Number [address] [address] documented in this encounter Visit Diagnoses Diagnosis Loss of weight- Primary Nausea Nausea alone documented in this encounter Additional Health Concerns Infection Onset Date Last Indicated Resolved Time CoV-Risk 05/10/2020 05/13/2020 05/16/2020 4:06 PM EDT documented as of this encounter Care Teams Golf Range Attendant Relationship Specialty Start Date End Date Domenic Beckham MD [address] [place] [address] [place] [address] PCP - General 09/02/17 Leonor Frias RN [address] [place] [address] Registered Nurse 04/22/20 01/18/24 Alexandra Noonan RN [address] [place] [address] Registered Nurse 01/19/24 documented as of this encounter Additional Source Comments The information contained in this document represents components of the legal health record. It is not the complete legal health record.[facility]
--- OUTSIDE RECORDS SUMMARY | 2025-08-10 12:03 | XMS_ITS | Encounter Summary ---
Author Organization [facility] Address [address] [facility] [address] [place] [address] Phone Care Team Providers Care Director Of Product Management Name Role Phone Domenic Beckham MD Primary Care Provider Leonor Frias RN Unavailable [phone] Alexandra Noonan RN Unavailable [phone] Encounter Details Date Type Department Care Team (Late st Contact Info) Description 03/25/2020 Transcribe Orders [facility] [address] [place] [address] Domenic Beckham MD [address] [place] [address] [place] [address] Anemia, unspecified type (Primary Dx) Social [...] EDT Office Visit [facility] [address] [place] [address] [place] [address] Domenic Beckham MD [address] [place] [address] Dr Am[place]RISTOPHER [address] documented as of this encounter Results * (ABNORMAL) CBC and differential (03/25/2020 9:58 AM EDT) WBC 4.86 4.00 - 11.00 K/uL [facility] Comment:Note Reference Range updates to all CBC and Differential results. RBC 3.27(L) 3.90 - 5.69 M/uL [facility] HGB 8.4(L) 12.4 - 17.3 g/dL [facility] Comment:Note updated Referen ce Ranges for all CBC and Differential results. HCT 26.8(L) 37.0 - 51.0 % [facility] PLT 227 140 - 430 K/uL [facility] MCV 82.0 78.0 - 97.0 fL [facility] MCH 25.7 25.0 - 33.0 pg [facility] MCHC 31.3(L) 32.0 - 36.0 g/dL [facility] RDW 15.3(H) 11.0 - 15.0 % [facility] MPV 11.5 8.4 - 12.8 fl [facility] NRBC 0.00 0 /100 WBCs [facility] ABSOLUTE NRBC 0.00 0 K/uL [facility] DIFF METHOD Auto [facility] NEUTS 63.2 43.0 - 75.0 % [facility] LYMPHS 18.5 18.2 - 47.4 % [facility] MONOS 10.1 4.00 - 11.00 % [facility] EOS 7.2 0.0 - 8.0 % [facility] BASOS 0.8 0.0 - 2.0 % [facility] Granulocytes, immature (%) 0.2 0.0 - 0.9 % [facility] ABSOLUTE NEUTS 3.07 1.80 - 7.70 K/uL [facility] ABSOLUTE LYMPHS 0.90(L) 1.00 - 3.10 K/uL [facility] ABSOLUTE MONOS 0.49 0.20 - 0.80 K/uL [facility] ABSOLUTE EOS 0.35 0.00 - 0.80 K/uL [facility] ABSOLUTE BASOS 0.04 0.00 - 0.09 K/uL [facility] Granulocytes, immature 0.01 0.00 - 0.05 K/uL [facility] Blood 03/25/2020 9:58 AM EDT 03/25/2020 10:00 AM EDT us Domenic Beckham MD LAB BLOOD ORDERABLES Fi nal Result Performing Organization Address City/[facility]/ZIP Co de Phone Number [address] [address] * (ABNORMAL) Iron and iron binding capacity (03/25/2020 9:58 AM EDT) IRON 40(L) 45 - 160 ug/dL [facility] IRON BINDING CAPACITY 326 228 - 428 ug/dL [facility] TRANSFERRIN SATURAT. 12(L) 20 - 55 % [facility] Blood 03/25/2020 9:58 AM EDT 03/25/2020 10:00 AM EDT us Domenic Beckham MD LAB BLOOD ORDERABLES Fi nal Result Performing Organization Address City/[facility]/ZIP Co de Phone Number [address] [address] documented in this encounter Visit Diagnoses Diagnosis Anemia, unspecified type- Primary documented in this encounter Additional Health Concerns Infection Onset Date Last Indicated Resolved Time CoV-Risk 05/10/2020 05/13/2020 05/16/2020 4:06 PM EDT documented as of this encounter Care Teams Director Of Product Management Relationship Specialty Start Date End Date Domenic Beckham MD [address] [place] [address] [place] [address] PCP - General 09/02/17 Leonor Frias, RN [address] [place] [address] Registered Nurse 04/22/20 01/18/24 Alexandra Noonan RN [address] [place] [address] Registered Nurse 01/19/24 documented as of this encounter Additional Source Comments The information contained in this document represents components of the legal health record. It is not the complete legal health record.[facility]
--- OUTSIDE RECORDS SUMMARY | 2025-08-10 12:03 | XMS_ITS | Patient Health Record ---
Author Organization [facility] Address [address] [place] [address] Care Team Providers Care Supervisor Backfilling Name Role Phone Domenic Beckham MD Primary Care Provider Nandini Diaz Unavailable [phone] Jorge Salazar Unavailable Unavailable Will Norton Unavailable [phone] Davon Arenas Unavailable [phone] Lindsay Hauser Unavailable [phone] Allergies No Known Allergies Reason For Referral No Information Medications Medication SIG (Take, Route, Frequency, Duration) Notes Start Date End Date Status Gabapentin 100 MG 1 capsule Orally Onc e a day; Duration: 30 day(s) 08/15/2024 Active Warfarin Sodium 2 MG 1 tablet Orally [...] needed Inhalation every 4 hrs 08/15/2024 Active Fluticasone Propionate 50 MCG/ACT 1 spray in each nostril Nasally Once a day; Duration: 30 day(s) 08/15/2024 Active Triamcinolone Acetonide 0.1 % 1 application Externally Two times a Week 08/15/2024 Active Lasix 40 MG 1 tablet Orally Once a day Active Problems Problem Type SNOMED Code ICD Code Onset Dates Problem Status W/U Status Risk Notes Problem Peripheral venous insufficiency (36396496) Venous insufficiency (chronic) (peripheral) (I87.2) Active confirmed Problem 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 (L97.822) Active confirmed Problem Chronic ulcer of ski n (30000791) 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) Active confirmed Problem Abrasion, lower leg (425897289) Abrasion, left lower leg, initial encounter (S80.812A) Active confirmed new wound noted on NV on Problem Abrasion, lower leg (761140164) Abrasion, left lower leg, subsequent encounter (S80.812D) Active confirmed Problem 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 (L97.926) Active confirmed Problem Hypercholesterolemia (86283678) Hypercholesterolemia (E78.00) Active confirmed Problem Lymphedema (28078457) Lymphedema (I89.0) Active confirmed Problem Asthma (308939355) Asthma (J45.909) Active conf irmed Problem Type 2 diabetes mellitus (00704480) Type 2 diabetes mellitus (E11.9) Active confirmed Vital Signs Heart Rate 70 /min 08/09/2025 Temperature 97.4 degrees Fahrenheit 08/09/2025 Respiratory Rate 18 /min 08/09/2025 Blood pressure diastolic 70 mm Hg 08/09/2025 Height-cm 175.26 cm 08/09/2025 Oximetry 97 % 08/09/2025 Weight-kg 97.52 kg 08/09/2025 Height 5 ft 9 in in 08/09/2025 Blood pressure systolic 140 mm Hg 08/09/2025 Weight 215 lbs 08/09/2025 BMI 31.75 kg/m2 08/09/2025 Encounters Encounter Location Date Provider Diagnosis [facility] [address] [place] [address] 08/17/2024 Jooyun Hauser Abrasion, left lower leg, initial encounter S80.812A ; 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 without evidence of necrosis L97.926 ; Venous insufficiency (chronic) (peripheral) I87.2 ; Type 2 diabetes mellitus E11.9 and Hypercholesterolemia E78.[address] [address] 08/24/2024 Jooyun Hauser Abrasion, left lower leg, initial encounter S80.812A ; 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 without evidence of necrosis L97.926 ; Venous insufficiency (chronic) (peripheral) I87.2 ; Type 2 diabetes mellitus E11.9 and Hypercholesterolemia E78.[address] [address] 09/07/2024 Jooyun Hauser 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 without evidence of necrosis L97.926 ; Venous insufficiency (chronic) (peripheral) I87.2 ; Type 2 diabetes mellitus E11.9 ; Hypercholesterolemia E78.00 and Abrasion, left lower leg, subsequent encounter S80.812D [address] [address] 09/21/2024 Jooyun Hauser 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 without evidence of necrosis L97.926 ; Venous insufficiency (chronic) (peripheral) I87.2 ; Type 2 diabetes mellitus E11.9 ; Hypercholesterolemia E78.00 and Abrasion, left lower leg, subsequent encounter S80.812D [address] [address] 09/28/2024 Jooyun Hauser 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 without evidence of necrosis L97.926 ; Venous insufficiency (chronic) (peripheral) I87.2 ; Type 2 diabetes mellitus E11.9 ; Hypercholesterolemia E78.00 and Abrasion, left lower leg, subsequent encounter S80.812D [address] [address] 10/09/2024 Will Norton Venous insufficiency (chronic) (peripheral) I87.2 ; Non-pressure chronic ulcer of other part of left lower leg with fat layer exposed L97.822 ; Abrasion, left lower leg, subsequent encounter S80.812D and Type 2 diabetes mellitus E11.[address] [facility] [address] [address] 10/19/2024 Nandini Hadley Venous insufficiency (chronic) (peripheral) I87.2 ; Non-pressure chronic ulcer of other part of left lower leg with fat layer exposed L97.822 ; Abrasion, left lower leg, subsequent encounter S80.812D and Type 2 diabetes mellitus E11.[address] [facility] [address] [address] 11/02/2024 Davon Arenas Venous insufficiency (chronic) (peripheral) I87.2 ; Non-pressure chronic ulcer of other part of left lower leg with fat layer exposed L97.822 ; Abrasion, left lower leg, subsequent encounter S80.812D ; Type 2 diabetes mellitus E11.9 and Abrasion, left lower leg, initial encounter S80.812A [facility] [address] [address] 11/06/2024 Nandini Hadley Venous insufficiency (chronic) (peripheral) I87.2 ; Non-pressure chronic ulcer of other part of left lower leg with fat layer exposed L97.822 ; Abrasion, left lower leg, subsequent encounter S80.812D ; Type 2 diabetes mellitus E11.9 and Abrasion, left lower leg, initial encounter S80.812A [facility] [address] [address] 11/13/2024 Nandini Hadley Venous insufficiency (chronic) (peripheral) I87.2 ; Non-pressure chronic ulcer of other part of left lower leg with fat layer exposed L97.822 ; Abrasion, left lower leg, subsequent encounter S80.812D ; Type 2 diabetes mellitus E11.9 and Abrasion, left lower leg, initial encounter S80.812A [facility] [address] [address] 11/27/2024 Nandini Hadley Venous insufficiency (chronic) (peripheral) I87.2 ; Non-pressure chronic ulcer of other part of left lower leg with fat layer exposed L97.822 ; Abrasion, left lower leg, subsequent encounter S80.812D ; Type 2 diabetes mellitus E11.9 and Abrasion, left lower leg, initial encounter S80.812A [facility] [address] [address] 12/08/2024 Nandini Hadley Venous insufficiency (chronic) (peripheral) I87.2 ; Non-pressure chronic ulcer of other part of left lower leg with fat layer exposed L97.822 ; Abrasion, left lower leg, subsequent encounter S80.812D ; Type 2 diabetes mellitus E11.9 and Abrasion, left lower leg, initial encounter S80.812A [facility] [address] [address] 01/18/2025 Nandini Hadley Venous insufficiency (chronic) (peripheral) I87.2 ; Non-pressure chronic ulcer of other part of left lower leg with fat layer exposed L97.822 ; Lymphedema I89.0 and Type 2 diabetes mellitus E11.[address] [address] 02/01/2025 Nandini Hadley Venous insufficiency (chronic) (peripheral) I87.2 ; Non-pressure chronic ulcer of other part of left lower leg with fat layer exposed L97.822 ; Lymphedema I89.0 and Type 2 diabetes mellitus E11.9 [facility] [address] [place] [phone] 02/15/2025 Nandini Hadley Venous insufficiency (chronic) (peripheral) I87.2 ; Non-pressure chronic ulcer of other part of left lower leg with fat layer exposed L97.822 ; Lymphedema I89.0 and Type 2 diabetes mellitus E11.[address] [facility] [address] [place] [phone] 03/01/2025 Nandini Hadley Venous insufficiency (chronic) (peripheral) I87.2 ; Non-pressure chronic ulcer of other part of left lower leg with fat layer exposed L97.822 ; Lymphedema I89.0 and Type 2 diabetes mellitus E11.9 [facility] [address] [place] [phone] 03/22/2025 Nandini Hadley Venous insufficiency (chronic) (peripheral) I87.2 ; Non-pressure chronic ulcer of other part of left lower leg with fat layer exposed L97.822 ; Lymphedema I89.0 and Type 2 diabetes mellitus E11.9 [facility] [address] [place] [phone] 04/05/2025 Nandini Hadley Venous insufficiency (chronic) (peripheral) I87.2 ; Non-pressure chronic ulcer of other part of left lower leg with fat layer exposed L97.822 ; Lymphedema I89.0 and Type 2 diabetes mellitus E11.[address] [facility] [address] [place] [address] 06/07/2025 Nandini Hadley Venous insufficiency (chronic) (peripheral) I87.2 ; Non-pressure chronic ulcer of other part of left lower leg with fat layer exposed L97.822 ; Lymphedema I89.0 and Type 2 diabetes mellitus E11.[address] [facility] [address] [place] [phone] 06/22/2025 Nandini Hadley Venous insufficiency (chronic) (peripheral) I87.2 ; Non-pressure chronic ulcer of other part of left lower leg with fat layer exposed L97.822 ; Lymphedema I89.0 and Type 2 diabetes mellitus E11.[address] [facility] [address] [place] [phone] 08/03/2025 Nandini Hadley Type 2 diabetes eligio itus E11.9 ; Non-pressure chronic ulcer of skin of other sites with fat layer exposed L98.492 ; Non-pressure chronic ulcer of other part of left lower leg with fat layer exposed L97.822 ; Venous insufficiency (chronic) (peripheral) I87.2 and Lymphedema I89.0 [facility] [address] [place] [address] 08/09/2025 Nandini Hadley Type 2 diabetes eligio itus E11.9 ; Non-pressure chronic ulcer of skin of other sites with fat layer exposed L98.492 ; Non-pressure chronic ulcer of other part of left lower leg with fat layer exposed L97.822 ; Venous insufficiency (chronic) (peripheral) I87.2 and Lymphedema I89.0 [facility] [address] [address] 08/15/2024 Lindsay Hauser Assessments Encounter Date Diagnosis (ICD Code) Assessment Notes Treatment Notes Treatment Clinical Notes Section Notes 08/17/2024 Abrasion, left lower leg, initial encounter (ICD-10 - S80.812A) 08/17/2024 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 I removed the dressing and examined the wounds. The left leg abrasion is superficial wound with serosanguineous drainage noted. The left lower leg full thickness ulcer contains slough and devitalized tissue. There was surrounding erythema. Patient reports that the erythema is significant decreased since he finished the ABT course. There was no infectious process. After the examination, I discussed the indication of the debridement and he was agreeable to the plan. ThenI performed debridement of the ulcers are outlined above. Ulcer was cleaned with saline and Xeroform was applied to the abrasion wound and Aquacel to the lower leg wound, then zinc to periwound secured with dsd. Conpression was applied to bilateral lower extremities. He tolerated the procedure well. Advised patient to continue to use compression stocking. Continue with leg elevation. He will return in one week for a follow up visit. S/S of infection reviewed and when to go to ED. A total of 40 minutes was spent on this visit (face to face and non face to face) documenting HPI and performing physical exam, reviewing previous notes and testing, reviewing and adjusting treatment plan, counseling the patient on treatment choices, disease process, expected outcomes, and documenting the findings in the note. I Lindsay Hausre TIME CLOCK INSPECTORAlbino, examined, evaluated and treated the patient. Dr. Jonathan Norton was available for any question or concerns that I may have had. 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 I removed the dressing and examined the wounds. The both wounds are improving based on measurement and assessment.The left leg abrasion is superficial wound with serosanguineous drainage noted. The left lower leg full thickness ulcer contains slough and devitalized tissue. There was surrounding erythema. Patient reports that the erythema continues decreased since he finished the ABT course. There was no infectious process. After the examination, I discussed the indication of the debridement and he was agreeable to the plan. ThenI performed debridement of the ulcers are outlined above. Ulcer was cleaned with saline and Xeroform was applied to the abrasion wound and Aquacel to the lower leg wound, then zinc to periwound secured with dsd. Conpression was applied to bilateral lower extremities. He tolerated the procedure well. Advised patient to continue to use compression stocking. Continue with leg elevation. He will return in one week for a follow up visit. S/S of infection reviewed and when to go to ED. MOHINI Plascencia, examined, evaluated and treated the patient. Dr. Jonathan Norton was available for any question or concerns that I may have had. 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 I removed the dressing and examined the wounds. The both wounds are improving based on measurement and assessment.The left leg abrasion is superficial wound with serosanguineous drainage noted. The left lower leg wound has resolved and re-epitheliazed. The surround erythema and leg edema has decreased. He uses compression stocking. After the examination, I discussed the indication of the debridement and he was agreeable to the plan. ThenI performed debridement of the ulcers are outlined above. Ulcer was cleaned with saline and Aquacel to the wound bed, then zinc to periwound secured with dsd. Conpression was applied to bilateral lower extremities. He tolerated the procedure well. Advised patient to continue to use compression stocking. Continue with leg elevation. He will return in one week for a follow up visit. S/S of infection reviewed and when to go to ED. MOHINI Plascencia, examined, evaluated and treated the patient. Dr. Jonathan Norton was available for any question or concerns that I may have had. 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 I removed the dressing and examined the wounds. The medial leg wound has resolved and scabbed over it. The anterior leg wound re-opened this week. The left anterior leg wound is superficial wound with serosanguineous drainage noted. There was no surround erythema but has leg bilaterally. He uses compression stocking. After the examination, I discussed the indication of the debridement and he was agreeable to the plan. ThenI performed debridement of the ulcers are outlined above. Ulcer was cleaned with saline and xeroform to the wound bed, then zinc to periwound secured with dsd. Conpression was applied to bilateral lower extremities. He tolerated the procedure well. Advised patient to continue to use compression stocking. Continue with leg elevation. He will return in one week for a follow up visit. S/S of infection reviewed and when to go to ED. I KWAME Marquez-, examined, evaluated and treated the patient. Dr. Jonathan Norton was available for any question or concerns that I may have had. 10/09/2024 Venous insufficiency (chronic) (peripheral) (ICD-10 - I87.2) 10/19/2024 Venous insufficiency (chronic) (peripheral) (ICD-10 - I87.2) 11/02/2024 Venous insufficiency (chronic) (peripheral) (ICD-10 - I87.2) 11/06/2024 Venous insufficiency (chronic) (peripheral) (ICD-10 - I87.2) 11/13/2024 Venous insufficiency (chronic) (peripheral) (ICD-10 - I87.2) 11/27/2024 Venous insufficiency (chronic) (peripheral) (ICD-10 - I87.2) 12/08/2024 Venous insufficiency (chronic) (peripheral) (ICD-10 - I87.2) 01/18/2025 Venous insufficiency (chronic) (peripheral) (ICD-10 - I87.2) 01/18/2025 Non-pressure chronic ulcer of other part of left lower leg with fat layer exposed (ICD-10 - L97.822) Vital signs are reviewed and are stable. I removed the dressings about the left leg to perform wound examination. Edema in the left leg is reasonably managed. The narrowest aspect of the hauser where the medial lower leg ulcer is located is not ideally compressed. No signs of infection by way of redness, warmth or streaking. The superior medial leg ulcer looks macerated and abraded in nature. Slough and nonviable material is removed from the inferior wound showing pink granular tissue beneath. Superficial varicosities, hyperemia and hyperkeratosis are also present. Indications for debridement are reviewed. I carried out the procedure using the curette to remove nonviable materia about the wound edges and wound base. Post debridement appearance of the open areas is improved. DP pulse is palpable in the left foot. Owen's left leg ulcers have recurred with suboptimal edema control. A Tubigrip along with SRINI wrap to follow has been a reasonable strategy, however I recommend he continue to pursue Junta lite compression additionally because of anatomic mid-hauser narrowing, lack of adequate compression about the medial lower leg ulcer, and ease of application. Arterial studies done elsewhere show no significant stenosis in the lower extremities. We will see him back in 1-2 weeks. Time spent on chart review, patient interaction and examination, documentation and patient education regarding lymphedema is 15 minutes. I, Nandini Hadley PA-C, examined, evaluated and treated the patient under the supervision of Will Norton MD, who is present in the office and guiding the management plan. I confirm that the care as initially planned and subsequently discussed with Dr. Norton is as described and documented. 02/01/2025 Venous insufficiency (chronic) (peripheral) (ICD-10 - I87.2) 02/15/2025 Venous insufficiency (chronic) (peripheral) (ICD-10 - I87.2) 03/01/2025 Venous insufficiency (chronic) (peripheral) (ICD-10 - I87.2) 03/22/2025 Venous insufficiency (chronic) (peripheral) (ICD-10 - I87.2) 04/05/2025 Venous insufficiency (chronic) (peripheral) (ICD-10 - I87.2) 06/07/2025 Venous insufficiency (chronic) (peripheral) (ICD-10 - I87.2) 06/22/2025 Venous insufficiency (chronic) (peripheral) (ICD-10 - I87.2) 08/03/2025 Non-pressure chronic ulcer of skin of other sites with fat layer exposed (ICD-10 - L98.492) 08/03/2025 Type 2 diabetes mellitus (ICD-10 - E11.9) 08/09/2025 Type 2 diabetes mellitus (ICD-10 - E11.9) 08/09/2025 Non-pressure chronic ulcer of skin of other sites with fat layer exposed (ICD-10 - L98.492) 08/03/2025 Non-pressure 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 I reviewed his vital signs which were stable. He was afebrile. I looked at the left forearm noting two isolated, nummular ulcers without surrounding tissue damage, hematoma, erythema, edema, warmth or streaking. I was unable to express drainage, nor did I appreciate exquisite tenderness. The wound beds were slough laden without necrosis. I discussed the indications for debridementand he agreed to proceed. I used the 10 blade scalpel to remove nonviable debris from the wound bed, resulting in the appearance of pink, healthy granulation tissue. I noted epithelial growth at the most proximal wound border on the proximal wound post debridement. I controlled bleeding with direct pressure. He tolerated the procedure well. Owen has a new left arm ulcer associated with warfarin use that has been refractory to home remedies. I recommended a double layer of Xeroform application, coupled with periwound zinc oxide paste to be changed daily until follow up in one week. Other topical dressings might be considered if the dressing continues to adhere to the wound bed. He will continue with proper hygiene and tight glycemic control. He will return to wound care in one week. He will call sooner with any drainage or new ulceration. He will go to the emergency room with redness, fever, odor or wound deterioration. I, Nandini Hadley PA-C, examined, evaluated and treated the patient under the supervision of Will Norton MD, who was available for any questions or concerns that I may have had. 06/22/2025 Non-pressure chronic ulcer of other part of left lower leg with fat layer exposed (ICD-10 - L97.822) He will see Dr. Galvan at the end of June. I reviewed his vital signs which were stable. He was afebrile. On the left leg, no signs of infection were present by way of redness, warmth or streaking. I noted marked improvement of edema at the ankle in particular, as well as the left lower extremity. I examined the left hauser where the site of the previously open area was located. A flaky scab was present and upon removal with skin prep, showed complete healing beneath. I was unable to express. Debridement was not indicated. Owen has ongoing left leg ulcers that come and go, the most recent of which was healed today. He plans to discuss recurrent venous leg ulcers with his vascular surgeon in June. In the meantime, I recommended continued use of juxtalite as snugly as he can manage at the ankle. Nursing applied zinc oxide paste to the newly healed area today for protection. He will return to wound care as needed. He will call sooner with any drainage or new ulceration. I, Nandini Hadley PA-C, examined, evaluated and treated the patient under the supervision of Will Norton MD, who was available for any questions or concerns that I may have had. 06/07/2025 Non-pressure chronic ulcer of other part of left lower leg with fat layer exposed (ICD-10 - L97.822) Owen returns with a new left leg ulcer that developed without trauma while being compliant with consistent compression. I reviewed his vital signs which were stable. He was afebrile. I removed the lidocaine dressings about the left leg to perform the wound examination. On the left leg, no signs of infection were present by way of redness, warmth or streaking. I once again noted edema focal to the ankle, sparing the calf and proximal lower leg. I examined the left hauser wound which was moist and laden with slough. I did not appreciate drainage, odor purulence or fluctuance. A small healed scab was located 2 cm medial and superior to the open area. I visualized superficial varicosities once again, unchanged from last visit. I discussed the indications for debridementand and he agreed to proceed. I carried out the procedure using the curette to remove moist slough and nonviable material from the anterior leg wound. I observed pink granulation tissue at the wound base following the procedure. I then removed senescent material from the periwound. Post debridement appearance was improved. He tolerated the procedure well. Owen has ongoing left leg ulcers that come and go and he plans to discuss this with his vascular surgeon in August. In the meantime, I recommended Xeroform and zinc oxide paste as the primary dressing, using juxtalite as snugly as he can manage at the ankle. Coflex may be considered depending on his progress. Nursing applied the dressings today and offered instructions for use at home. We will see him back in 2 weeks. He will call sooner with any concerns. He will seek ER consultation for fever, odorous drainage, leg redness or worsening wound appearance. Nandini Ngo PA-C, examined, evaluated and treated the patient under the supervision of Will Norton MD, who was available for any questions or concerns that I may have had. 04/05/2025 Non-pressure chronic ulcer of other part of left lower leg with fat layer exposed (ICD-10 - L97.822) Owen returns for left leg ulcers and venous insufficiency. He has been using juxta lite compression on the left leg with good results. He has gone 3 weeks without new ulceration and the chronic open areas on the left leg are healed. I reviewed his vital signs which are stable. He is afebrile. I removed the dressings about the left leg to perform wound examination. I did not appreciate signs of infection by way of redness, warmth or streaking. On the left leg, the appearance of edema remains uniform with juxta lite use. The open area on the medial calf and anterior hauser are now closed. A small fluid filled 4 mm blister on the lateral midshin does not express. Superficial varicosities, hyperemia and hyperkeratosis remain present. I palpated the left DP pulse. Debridement is not indicated. Owen has left leg ulcers from venous insufficiency that have healed with juxtalite compression devices. We discussed further endovascular referral if he decided to pursue it. At the moment, he is satisfied with his progress. I reiterated the importance of compliance with compression and leg elevation. He will follow up with wound care on an as needed basis. Nandini Ngo PA-C, examined, evaluated and treated the patient under the supervision of Will Norton MD, who was available for any questions or concerns that I may have had. 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 He has been using juxta lite compression on the left leg for 5 weeks. He reports good tolerance but some difficulty with application in reaching to secure the device at the ankle. I reviewed his vital signs which are stable. He is afebrile. I removed the dressings about the left leg to perform wound examination. No signs of infection are present by way of redness, warmth or streaking. On the left leg, the appearance of edema is more uniform about the calf and ankle. I examined the medial left leg where new wound formed, looking as abraded blister that progressed to ulceration. The anterior midshin ulcer is stable and laden with slough. The superior anterior leg ulcer resolved. Superficial varicosities, hyperemia and hyperkeratosis remain present. I discussed the indications for debridementand he agreed to proceed. I carried out the procedure using the curette to remove adherent slough and nonviable material about the anterior leg wound. I subsequently removed debris from the shallow medial leg wound in a similar manner. Post debridement appearance was improved at both locations. Owen has left leg ulcers that are improved with new juxtalite compression devices. He will work on strategies to don the devices independently. Nursing offered strategies to ease the process. Endovascular consult can be considered if he does not achieve closure in a timely manner. I recommend changing the dressing to Aquacel Ag which was applied by nursing. Arterial studies show no significant stenosis in the lower extremities. We will see him back in 2 weeks. I, Nandini Hadley PA-C, examined, evaluated and treated the patient under the supervision of Will Norton MD, who was available for any questions or concerns that I may have had. 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 I removed the dressings about the left leg to perform wound examination. Left leg edema is minimal. No signs of infection are present by way of redness, warmth or streaking. The dimensions of the anterior leg ulcer are improved. Medial 2mm scabs do not reveal open ulceration. A resolving medial blister is seen about this cluster of healed areas. Superficial varicosities, hyperemia and hyperkeratosis remain present. I discussed the indications for debridementand he agrees to proceed. I carried out the procedure using the curette to remove adherent slough and nonviable material about the anterior leg wound. Post debridement appearance is improved. DP pulse is palpable in the left foot. Owen has left leg ulcers that come and go in the left leg with edema fluctuance. He will obtain new juxtalite compression devices today. I will pursue endovascular consult if issues with edema control persist despite their use. I reiterated the importance of compliance with tubigrip in the meantime and leg elevation for wound healing. Nursing applied xeroform again today which affords improvement in wound quality without destroying friable epithelium. Arterial studies show no significant stenosis in the lower extremities. We will see him back in 1-2 weeks. I, Nandini Hadley PA-C, examined, evaluated and treated the patient under the supervision of Will Norton MD, who was available for any questions or concerns that I may have had. 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 I removed the dressings about the left leg to perform wound examination. Edema in the left leg is minimal. No signs of infection are present by way of redness, warmth or streaking. The anterior leg ulcer is smaller in size and more superficial. Maceration and skin break down are absent. Expressible drainage is not seen about the medial leg scab and as such, this ulcer is healed. Superficial varicosities, hyperemia and hyperkeratosis remain present. I discussed the indications for debridementand he agrees to proceed. I carried out the procedure using the curette to remove adherent slough and nonviable material about the anterior leg wound. Post debridement appearance of the open areas is improved upon slough removal. I observed areas of granulation post debridement. DP pulse is palpable in the left foot. Owen has left leg ulcers that come and go in the left leg with edema fluctuance. He would like to see his response to juxtalite compression before pursing endovascular consult. I reiterated the importance of compliance with tubigrip and leg elevation for wound healing. Nursing applied xeroform again today which affords improvement in wound quality without destroying friable epithelium. We await insurance approval for juxtalite compression order. I recommend he continue tubigrip along with SRINI wrap to follow with each dressing change. Arterial studies show no significant stenosis in the lower extremities. We will see him back in 1-2 weeks. Nandini Ngo PA-C, examined, evaluated and treated the patient under the supervision of Will Norton MD, who was available for any questions or concerns that I may have had. 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 I removed the dressings about the left leg to perform wound examination. Edema in the left leg is reasonably managed. No signs of infection are present by way of redness, warmth or streaking. The superior medial leg ulcer is improved, showing the healed area inferior to open area. Maceration and skin break down are absent. Superficial varicosities, hyperemia and hyperkeratosis remain present. Upon removal of slough and nonviable material from the inferior wound, pink granular tissue is seen beneath. I discussed the indications for debridement and he agrees to proceed. I carried out the procedure using the blade on the anterior portion of the leg and the curette to remove nonviable material about the medial leg wound. Friable material along the wound edges is not disturbed. Post debridement appearance of the open areas is improved. DP pulse is palpable in the left foot. Owen has left leg ulcers in the setting of suboptimal edema control and venous insufficiency, not amenable to ablation per vascular surgery consult note. Nursing applied xeroform again today which affords improvement in wound quality without destroying friable epithelium. I resubmitted the order for juxtalite compression for his open wounds on the left leg to his preferred orthotics company today. In the meantime, I recommend he continue tubigrip along with SRINI wrap to follow Arterial studies show no significant stenosis in the lower extremities. We will see him back in 1-2 weeks. Nandini Ngo PA-C, examined, evaluated and treated the patient under the supervision of Will Norton MD, who was available for any questions or concerns that I may have had. 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 I removed the dressings about the left leg to perform wound examination. No signs of infection by way of redness, warmth or streaking. Edema control in the left leg remains reasonable with tubigrip.The anterior leg ulcer is healed. A small linear scab is indurated and does not express. The medial lower leg wound is also an indurated scab. Mild periwound hyperemia is resolving. He is working with his insurance to secure juxta-lite compression. DP pulse is palpable in the left foot. Debridement is not indicated. Erics left leg ulcers are healed with consistent edema control. A tubigrip along with SRINI wrap to follow has been a reasonable strategy, however he needs Juxta lite compression because of anatomic mid-hauser narrowing and lack of adequate compression about that aspect of the leg. Wounds have achieved closure and he is discharged from wound care today. He will call with any recurrent drainage or redness in the left leg. I recommend a protective topical approach with either skin prep or zinc oxide paste for two weeks in order to allow the intact dermis to become more durable. Follow up prn. I, Nandini Hadley PA-C, examined, evaluated and treated the patient under the supervision of Will Norton MD, who was available for any questions or concerns that I may have had. 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 I removed the dressings about the left leg to perform wound examination. Edema in the left leg is acceptable with tubigrip. The narrowest aspect of the hauser where the medial lower leg ulcer is located is not ideally compressed. Edema is otherwise controlled. No signs of infection by way of redness, warmth or streaking. The anterior leg ulcer shows slough and nonviable material with a mix of pink and healthy granulation tissue. It is measuring smaller. The medial lower leg wound has changed minimally. Indications for debridement are reviewed. I carried out the procedure using the curette to remove nonviable materia about the wound edges and wound base. Post debridement appearance of the open areas is improved. DP pulse is palpable in the left foot. Owen's left leg ulcers continue to improve with better edema control. A tubigrip along with with SRINI wrap to follow has been a reasonable strategy, however I recommend he continue to pursue Juxta lite compression additionally because of anatomic mid hauser narrowing, lack of of adequate compression about the medial lower leg ulcer, and ease of application. He will use his [employer] compression socks as purchased online as well. No indication for Coflex wrap today given improvement with less aggressive compression. Recall that recent arterial studies done elsewhere show no significant stenosis in the lower extremities. We will see him back in 1-2 weeks. Nandini Ngo PA-C, examined, evaluated and treated the patient under the supervision of Will Norton MD, who is present in the office and guiding the management plan. I confirm that the care as initially planned and subsequently discussed with Dr. Norton is as described and documented. 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 Dressings about the left leg are removed to perform wound examination. Edema in the left leg is well controlled with tubigrip. No signs of infection by way of redness, warmth or streaking. The leg ulcers are improving showing less slough, anterior hauser appearing more superficial and vertically linear. Medial lower leg wound is much smaller. Debridement is carried using the curette to remove nonviable material. Post debridement apperance is improved. DP pulse is palpable in the left foot. Owen's left leg ulcers are improving with better edema control. A tubigrip has been more managable for him along with SRINI wrap to follow. He has looked into other compression sock brands and might consider these as well. We are working on Juxta-lite compression which will be the easiest to don. No indication for Coflex wrap today given improvement with less aggressive compression. Recall that recent arterial studies done elsewhere show no significant stenosis in the lower extremities. We will see him back in one week. The importance of vascular follow up early next year as scheduled was once again discussed. INandini PA-C, examined, evaluated and treated the patient under the supervision of Will Norton MD, who is present in the office and guiding the management plan. I confirm that the care as initially planned and subsequently discussed with Dr. Norton is as described and documented. 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 Dressings about the left leg are removed to perform wound examination. Edema in the left leg is present with mild pitting. No signs of infection. The leg ulcers are improving but laden with slough and debridement is carried out accordingly. Indications are reviewed and procedure documented as outlined above. Post debridement apperance is improved. DP pulse is palpable in the left foot. Owen is willing to try to change compression strategies because his current socks are difficult to take on and off. A tubigrip may be managable for him along with SRINI wrap to follow. We are working on Juxta-lite compression while the left leg ulcers are open. Other options can be discussed such if there is an issue or delay, such as Coflex. Recall that recent arterial studies done elsewhere show no significant stenosis in the lower extremities. We will try this conservative tubi/SRINI approach first and see him back in one week.The importance of vascular follow up early next year was reiterated as it pertains to venous reflux. INandini PA-C, examined, evaluated and treated the patient under the supervision of Will Norton MD, who is present in the office and guiding the management plan. I confirm that the care as initially planned and subsequently discussed with Dr. Norton is as described and documented. I, Will Norton MD confirm that Nandini Hadley PA-C understands and adheres to the guidelines of the established clinical protocols in the office. I confirm the above care provided was rendered under my general supervision as initially planned and subsequently discussed and supervised by me. 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 I removed the dressing and examined the wounds. The both wounds are improving based on measurement and assessment.The left leg abrasion is superficial wound with serosanguineous drainage noted. The left lower leg full thickness ulcer contains slough and devitalized tissue. There was surrounding erythema. Patient reports that the erythema is significant decreased since he finished the ABT course. There was no infectious process. After the examination, I discussed the indication of the debridement and he was agreeable to the plan. ThenI performed debridement of the ulcers are outlined above. Ulcer was cleaned with saline and Xeroform was applied to the abrasion wound and Aquacel to the lower leg wound, then zinc to periwound secured with dsd. Conpression was applied to bilateral lower extremities. He tolerated the procedure well. Advised patient to continue to use compression stocking. Continue with leg elevation. He will return in one week for a follow up visit. S/S of infection reviewed and when to go to ED. Jeni Hauser [facility]-, examined, evaluated and treated the patient. Dr. Jonathan Norton was available for any question or concerns that I may have had. 08/17/2024 Venous insufficiency (chronic) (peripheral) (ICD-10 - I87.2) 08/17/2024 Type 2 diabetes mellitus (ICD-10 - E11.9) 08/24/2024 Venous insufficiency (chronic) (peripheral) (ICD-10 - I87.2) 09/07/2024 Hypercholesterolemia (ICD-10 - E78.00) 10/09/2024 Abrasion, left lower leg, subsequent encounter (ICD-10 - S80.812D) 10/19/2024 Abrasion, left lower leg, subsequent encounter (ICD-10 - S80.812D) 09/21/2024 Type 2 diabetes mellitus (ICD-10 - E11.9) 09/28/2024 Type 2 diabetes mellitus (ICD-10 - E11.9) 11/02/2024 Abrasion, left lower leg, subsequent encounter (ICD-10 - S80.812D) 11/06/2024 Abrasion, left lower leg, subsequent encounter (ICD-10 - S80.812D) 11/13/2024 Abrasion, left lower leg, subsequent encounter (ICD-10 - S80.812D) 11/27/2024 Abrasion, left lower leg, subsequent encounter (ICD-10 - S80.812D) 01/18/2025 Type 2 diabetes mellitus (ICD-10 - E11.9) 02/01/2025 Lymphedema (ICD-10 - I89.0) 02/15/2025 Lymphedema (ICD-10 - I89.0) 03/01/2025 Lymphedema (ICD-10 - I89.0) 03/22/2025 Lymphedema (ICD-10 - I89.0) 04/05/2025 Lymphedema (ICD-10 - I89.0) 06/07/2025 Lymphedema (ICD-10 - I89.0) 06/22/2025 Lymphedema (ICD-10 - I89.0) 08/03/2025 Venous insufficiency (chronic) (peripheral) (ICD-10 - I87.2) 12/08/2024 Abrasion, left lower leg, subsequent encounter (ICD-10 - S80.812D) 08/09/2025 Non-pressure chronic ulcer of other part [...] wound care on an as needed basis. I, Nandini Hadley PA-C, examined, evaluated and treated the patient under the supervision of Will Norton MD, who was available for any questions or concerns that I may have had. 12/08/2024 Type 2 diabetes mellitus (ICD-10 - E11.9) 08/09/2025 Venous insufficiency (chronic) (peripheral) (ICD-10 - I87.2) 08/03/2025 Lymphedema (ICD-10 - I89.0) 06/22/2025 Type 2 diabetes mellitus (ICD-10 - E11.9) 06/07/2025 Type 2 diabetes mellitus (ICD-10 - E11.9) 04/05/2025 Type 2 diabetes mellitus (ICD-10 - E11.9) 03/22/2025 Type 2 diabetes mellitus (ICD-10 - E11.9) 03/01/2025 Type 2 diabetes mellitus (ICD-10 - E11.9) 02/15/2025 Type 2 diabetes mellitus (ICD-10 - E11.9) 02/01/2025 Type 2 diabetes mellitus (ICD-10 - E11.9) 11/27/2024 Type 2 diabetes mellitus (ICD-10 - E11.9) 11/13/2024 Type 2 diabetes mellitus (ICD-10 - E11.9) 11/06/2024 Type 2 diabetes mellitus (ICD-10 - E11.9) 11/02/2024 Type 2 diabetes mellitus (ICD-10 - E11.9) 10/19/2024 Type 2 diabetes mellitus (ICD-10 - E11.9) 10/09/2024 Type 2 diabetes mellitus (ICD-10 - E11.9) 09/28/2024 Hypercholesterolemia (ICD-10 - E78.00) 09/07/2024 Abrasion, left lower leg, subsequent encounter (ICD-10 - S80.812D) 09/21/2024 Hypercholesterolemia (ICD-10 - E78.00) 08/17/2024 Hypercholesterolemia (ICD-10 - E78.00) 08/24/2024 Type 2 diabetes mellitus (ICD-10 - E11.9) 08/24/2024 Hypercholesterolemia (ICD-10 - E78.00) 09/21/2024 Abrasion, left lower leg, subsequent encounter (ICD-10 - S80.812D) 09/28/2024 Abrasion, left lower leg, subsequent encounter (ICD-10 - S80.812D) 11/02/2024 Abrasion, left lower leg, initial encounter (ICD-10 - S80.812A) new wound noted on NV on 11/02/24 11/06/2024 Abrasion, left lower leg, initial encounter (ICD-10 - S80.812A) new wound noted on NV on 11/02/24 11/13/2024 Abrasion, left lower leg, initial encounter (ICD-10 - S80.812A) new wound noted on NV on 11/02/24 11/27/2024 Abrasion, left lower leg, initial encounter (ICD-10 - S80.812A) 12/08/2024 Abrasion, left lower leg, initial encounter (ICD-10 - S80.812A) 08/09/2025 Lymphedema (ICD-10 - I89.0) 10/09/2024 Heena Weaver developed a new medial leg ulcer after removing a dressing for the more lateral chronic ulceration. He is weaing weak compression. It is affording reasonable edema control as wounds in the left leg were almost closed until this new medial abrasion occurred. He denies fever, odor, redness and draining. He is not checking his blood sugars. Vital signs are reviewed. Dressings are removed. Edema in the left leg is present but minimal and nonpitting. Scarring on the the medial lower leg is seen and just superior, a new area of epithelial peeling that with closer inspection involves dermis. The lateral ulcer is also superficial, getting smaller, looking pink and healthy. Debridement is carried out as above. Post debridement appearance is improved. DP pulse palpable. There is no warmth nor streaking in the left leg to suggest infection. Owen makes steady progress to closure of the left leg ulcers associated with edema and presumed venous insufficiency. Plan is to continue current Xeroform with low potency compression and RTC. If at any time he is not happy with his progress, a look into vascular history and potential venous US of the left leg for reflux can be considered. RTC as scheduled. Nandini Ngo PA-C, examined, evaluated and treated the patient under the supervision of Will Norton MD, who is present in the office and guiding the management plan. I confirm that the care as initially planned and subsequently discussed with Dr. Norton is as described and documented. Will Ngo MD confirm that Nandini Hadley PA-C understands and adheres to the guidelines of the established clinical protocols in the office. I confirm the above care provided was rendered under my general supervision as initially planned and subsequently discussed and supervised by me. 10/19/2024 Other Owen's left leg ulcers are improving but he would like to know why recurrent ulcers are developing. No pain, fever or redness reported today. Drainage is minimal-moderate. Current wounds are better, smaller but he is most interested in leg ulceration prevention. Vital signs are reviewed. Dressings are removed. Edema in the left leg is present but not uniformly controlled from the compression sock. In other words, the tapered anatomy of the leg is not compressed in the area of the wound. The stocking is working best at the calf and ankle but not the midshin. The lateral leg ulcer in the region is laden with senescent material and is debrided as outlined above. The smaller wound also requires debridement. There is no warmth nor streaking in the left leg to suggest infection. Owen would like us to pursue the ultrasound that was obtained elsewhere as there may be some vaule in addressing GSV reflux or perforators as it pertains to chronic wounds. Additionally, he is compliant with compression stockings but finds them hard to don and they seem to be inadequate for mid-ahuser compression, playing a role in chronic wound ulcers. As such, measurements for Juxta-lite compression devices are most appropriate for better, more uniform edema control in the left leg. We will see him back in 1-2 weeks. Will try to obtain left leg venous US in the meantime. Nandini Ngo PA-C, examined, evaluated and treated the patient under the supervision of Will Norton MD, who is present in the office and guiding the management plan. I confirm that the care as initially planned and subsequently discussed with Dr. Waien is as described and documented. 11/02/2024 Heena Weaver presents today for a nursing visit. He is followed for wounds to left anterior lower leg, left medial lower leg. Current treatment with Xeroform daily. During the nursing visit he reports a new wound to left leg. On assessment, he has a new abrasion wound to the left anterior distal leg. Nursing reports continuing with Xeroform to all wounds, and he will have provider follow up at next appointment. Nursing educated patient to call clinic with questions or concerns. IDavon, MSN, FOOD SERVICE UTILITY WORKER, TIME CLOCK INSPECTOR-C, examined, evaluated , and treated the patient. Dr. Jonathan Norton was available for any questions or concerns that I may have had. 11/06/2024 Other 11/13/2024 Other Will Ngo MD confirm that Nandini Hadley PA-C understands and adheres to the guidelines of the established clinical protocols in the office. I confirm the above care provided was rendered under my general supervision as initially planned and subsequently discussed and supervised by me. 11/27/2024 Other Will Ngo MD confirm that Nandini Hadley PA-C understands and adheres to the guidelines of the established clinical protocols in the office. I confirm the above care provided was rendered under my general supervision as initially planned and subsequently discussed and supervised by me. 12/08/2024 Other Will Ngo MD confirm that Nandini Hadley PA-C understands and adheres to the guidelines of the established clinical protocols in the office. I confirm the above care provided was rendered under my general supervision as initially planned and subsequently discussed and supervised by me. 01/18/2025 Other Plan Of Treatment No Information Insurance Providers Payer Name Payer Address Payer Phone Subscriber Number Group Number Insured Name Patient Relationship to Insured Coverage Start Date Coverage End Date Medicare [address] GERALDO RANDALL [id number] Owen Licea Self - patient is the insured 0 [facility] [address] [place], [place] [id number] [phone] [id number] Owen Licea Self - patient is the insured 4 Medical (General) History Medical History History ICD Code Asthma J45.909 Unspecified atrial fibrillation I48.91 Type 2 diabetes mellitus E11.9 Elevated blood-pressure reading, without diagnosis of hypertension R03.0 Hypercholesterolemia E78.00 COPD, 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
--- OUTSIDE RECORDS SUMMARY | 2025-08-10 12:05 | XMS_ITS | Patient Health Record ---
Author Organization Domenic Beckham MD Address [address] [place] [phone] Care Team Providers Care Child Development Consultant Name Role Phone Domenic Beckham Primary Care Provider [phone] Allergies Allergen (clinical drug ingredient) Drug/Non Drug Allergy documented on EMR Reaction Allergy Type Onset Date Status seasonal allergies; pollen and molds, cats (uncoded) sneezing; itchy watery eyes Allergy Active Results Component Value Reference Range Notes Hemoglobin A1c Reviewed date:11/20/2024 11:09:20 AM Interpretation: Performing Lab: Notes/Report: Hemoglobin A1c 5.6 Hemoglobin A1c Reviewed date:05/10/2025 11:04:01 AM Interpretation: Performing Lab: Notes/Report: Hemoglobin A1c 5.4 Complete Blood Count Auto Di ff Reviewed date:01/29/2025 12:07:54 PM Interpretation: Performing Lab:[facility], [address] [place] [phone] Notes/Report: White Blood Count 6.8 4.8-10.8 X10*3/uL Red Blood Count 4.89 4.60-5.80 X10*6/uL Hemoglobin 13.9 14.0-18.0 g/dl Hematocrit 44.1 42.0-52.0 % Mean Corpuscular Volume 90.2 80.0-98.0 fL Mean Corpuscular Hemoglobin 28.4 27.0-33.0 pg Mean Corpuscular HGB Conc 31.5 31.0-36.0 g/dl Red Cell Distribution Width 16.0 11.0-16.0 % Platelet Count 142 160-400 X10*3/uL Mean Platelet Volume 10.7 9.4-12.4 fL Neutrophils Percent Auto 71.3 45-73 % Imm Gran Pct Auto 0.7 0.0-0.4 % Lymphocytes Percent Auto 17.5 20-40 % Monocytes Percent Auto 7.5 2-11 % Eosinophils Percent Auto 2.4 0-4 % Basophils Percent Auto 0.6 0-2 % NRBC Pct Auto 0.0 0.0-0.2 /100WBC Neutrophils Absolute Auto 4.8 2.0-8.3 x10*3/u L Imm Gran Abs Auto 0.05 0.00-0.03 X10*3/uL Lymphocytes Absolute Auto 1.2 1.2-4.9 X10*3/u L Monocytes Absolute Auto 0.5 0.1-1.2 X10*3/uL Eosinophils Absolute Auto 0.2 0.0-0.4 X10*3/u L Basophils Absolute Auto 0.0 0.0-0.2 X10*3/uL NRBC Abs Auto 0.000 0.0-0.012 X10*3/uL Comprehensive [place]. Panel Fa st Reviewed date:01/29/2025 12:52:48 PM Interpretation: Performing Lab:[facility], [address] [place] [phone] Notes/Report: Sodium 147 135-145 mmol/L Potassium 4.7 3.3-5.1 mmol/L Chloride 112 96-108 mmol/L Carbon Dioxide 27 22-29 mmol/L Anion Gap 13 12-20 Blood Urea Nitrogen 51 9-16 mg/dL Creatinine 1.83 0.5-1.4 mg/dL Estimated Glomerular Filt Rate 36 Chronic Kidney Disease: Estimated GFR < 60 mL/min/1.73m2 Severe Kidney Disease: Estimated GFR < 15 mL/min/1.73m2 Glucose Fasting 99 60-99 mg/dL Calcium 8.8 8.4-10.2 mg/dL Bilirubin Total 0.5 0.0-1.0 mg/dL Aspartate Amino Transferase 17 5-37 U/L Alanine Aminotransferase 22 0-40 U/L Total Protein 6.7 6.5-8.0 g/dL Albumin Level 4.1 3.5-5.0 g/dL Alkaline Phosphatase 57 39-117 U/L Lipid Panel Reviewed date:01/29/2025 12:52:11 PM Interpretation: Performing Lab:[facility], [address] [place] [phone] Notes/Report: Triglycerides 62 <150 mg/dL Desirable Triglyceride: less than 150 mg/dL Borderline High Triglyceride 150-199 mg/dL High Triglyceride: 200-499 mg/dL Very High Triglyceride: greater than or equal to 5OO mg/dL Cholesterol 141 <200 mg/dL Desirable Cholesterol: less than 200 mg/dL Borderline High Cholesterol: 200-239 mg/dL High Cholesterol: greater than 239 mg/dL LDL Cholesterol Calculated 83 <100 mg/dL Desirable LDL: less than 100 mg/dL Near Optimal/Above Optimal LDL: 110-129 mg/dL Borderline High LDL: 130-159 mg/dL High LDL: 160-189 mg/dL Very High LDL: greater than or equal to 190 mg/dL HDL Cholesterol 46 >40 mg/dL Desirable HDL: greater than 40 mg/dL Note: This HDL assay may give artificially low results in patients with liver disease. PSA,Total (Free>4and<10) Reviewed date:01/29/2025 11:59:17 AM Interpretation: Performing Lab:[address] [phone] Notes/Report: PSA,Total (Free>4and<10) 0.14 0.00-4.00 ng/mL A Free PSA was not [...] Coto Alinity i Chemiluminescent Microparticle Immunoassay (CMIA) UA ClnCatch+Micro w/rflx Cul t Reviewed date:01/29/2025 04:27:40 PM Interpretation: Performing Lab:[facility], [address] [place] [phone] Notes/Report: Urine, Clean Catch Color Urine Yellow Appearance Urine Clear PH 6.0 5.0-9.0 Glucose Urine UA 500 Negative mg/dL Urine Blood Negative Negative Specific [place] - Urine 1.025 1.005-1.025 Urine Protein 30 (1+) Neg-Trace mg/dL Urine Ketones Trace Negative mg/dL Nitrite Urine Negative Negative Leukocyte Esterase Urine Negative Negative RBC Urine 0-2 0-2 /HPF WBC Urine 0-5 0-5 /HPF Squamous Epithelial Cell Urine 0-2 0-2 /HPF Bacteria Urine None Seen None Seen Hyaline Casts Urine 0-2 0-2 /LPF PSA,Total (Free>4and<10) (No t yet reviewed by provider) Interpretation: Performing Lab:[facility], [address] [place] [phone] Notes/Report: PSA,Total (Free>4and<10) 0.13 0.00-4.00 ng/mL A [...] Coto Alinity i Chemiluminescent Microparticle Immunoassay (CMIA) Glucose, finger stick Reviewed date:11/20/2024 11:02:44 AM Interpretation: Performing Lab: Notes/Report: Value 134 Glucose, finger stick Reviewed date:05/10/2025 10:52:10 AM Interpretation: Performing Lab: Notes/Report: Value 111 Glucose, finger stick Reviewed date:06/15/2025 02:15:52 PM Interpretation: Performing Lab: Notes/Report: Value 114 Reason For Referral No Information Medications Medication SIG (Take, Route, Frequency, Duration) Notes Start Date End Date Status Furosemide 40 MG 1 tablet Orally Once a day Active Ventolin HFA 108 (90 Base) MCG/ACT INHALE 2 PUFFS BY MOUTH EVERY 4-6 HOURS NEEDED for 17 Active Vitamin D 1000 UNIT 1 tablet Orally Once a day Not-Taking Benefiber - 1 tablespoon in 8 ounces of water Orally once a day Active Atorvastatin Calcium 40 MG TAKE 1 TABLET BY MOUTH EVERY DAY for 90 Active Amiodarone HCl 200 MG 1 tablet Orally On ce a day Active Synjardy XR 12.5-1000 MG 1 tab Orally On ce a day Active Metoprolol Succinate ER 25 MG 1 tablet Orally Once a day Active Vitamin B Complex-C 500 mgs as directed Orally Active Lisinopril 5 MG TAKE 1 TABLET BY LESTER TH EVERY DAY Active Clobetasol Propionate 0.05 % 1 application Externally Twice a day for 10 day(s) Active Warfarin Sodium 5 MG TAKE 2 TABLETS BY MOUTH EVERY DAY Active Magnesium 250 MG 1 tablet with a meal Orally Once a day Active Ventolin HFA 108 (90 Base) MCG/ACT 1 puff as needed Inhalation every 4 hrs for 30 days 05/25/2025 Active Vitamin C 500 MG 2 tablets Orally onc e a day Active Furosemide 20 MG TAKE 2 TABLETS BY MOUTH EVERY DAY for 90 Active Gabapentin 300 MG TAKE 2 CAPSULES BY MOUTH AT BEDTIME ORALLY ONCE A DAY 90 DAYS for 90 Active Cyclobenzaprine HCl 10 MG 1 tablet as ne eded Orally Three times a day for 10 days Not-Taking Ibuprofen 800 MG 1 tablet as needed Orally TID Not-Taking Mupirocin 2 % 1 application Externally Twice a day for 5 day(s) Active Iron 325 (65 Fe) MG 1 tablet Once a day Active Combivent Respimat 20-100 MCG/ACT 1 puff Inhalation Four times a day Not-Taking Fluticasone Propionate 50 MCG/ACT INHALE 2 SPRAYS NASALLY EVERY DAY DIRECTED for 29 Not-Taking Ondansetron 4 MG 1 tablet on the tong ue and allow to dissolve Orally Once a day Not-Taking Immunizations Vaccine Route Administration Date Status Comme nts Flu Vaccine IM Intramuscular 08/11/2011 Administered Flu Vaccine Unknown 07/15/2012 Administered PPSV23 (Pnemovax) IM Intramuscular 03/10/2013 Administered Prevnar 13 IM Intramuscular 05/30/2013 Administered Flu Vaccine IM Intramuscular 09/18/2013 Administered Fluarix Quadrivalent IM Intramuscular 07/30/2014 Administered Shingles IM Intramuscular 11/19/2014 Administered Fluarix Quadrivalent IM Intramuscular 08/16/2015 Administered Fluarix Quadrivalent IM Intramuscular 10/12/2016 Administered Fluarix Quadrivalent IM Intramuscular 07/26/2017 Administered TDaP Unknown 05/04/2012 Administered taken from Immunization report Hepatitis A (adult) Unknown 05/04/2012 Administered Had Hep A & B 05/04, 05/31, 11/22/2012 Hepatitis B Unknown 05/04/2012 Administered Hep B 05/04, 05/31 and 11/22/2012; also hep A PPSV23 (Pnemovax) IM Intramuscular 03/25/2018 Administered Influenza High Dose IM Intramuscular 09/23/2018 Administered Fluarix Quadrivalent IM Intramuscular 07/18/2019 Administered Influenza High Dose IM Intramuscular 07/19/2020 Administered Covid Vaccine Unknown 12/18/2020 Administered [facility] Covid Vaccine Unknown 01/08/2021 Administered Pfizer Influenza High Dose IM Intramuscular 07/29/2021 Administered SARS-COV-2 Pfizer Unknown 08/06/2021 Administered SARS-COV-2 Moderna Unknown 07/27/2022 Administered [facility] Influenza High Dose Unknown 07/27/2022 Administered [facility] Influenza High Dose IM Intramuscular 08/31/2023 Administered RSV Unknown 08/19/2023 Administered SARS-COV-2 Pfizer Unknown 08/08/2024 Administered [facility] Influenza High Dose IM Intramuscular 08/17/2024 Administered Flu Vaccine Unknown 07/30/2014 Pending Social History Tobacco Use: Social History Observation Description Date Details (start date - stop date) Never Smoker NA - NA Tobacco Use/Smoking Question Answer Notes Patient is a nonsmoker Additional Findings: Tobacco Non-User Cu rrent non-smoker, currently using no form of tobacco Alcohol Screen Question Answer Notes Did you have a drink contain ing alcohol in the past year? Yes How often did you have a dri nk containing alcohol in the past year? Monthly or less (1 point) How many drinks did you have on a typical day when you were drinking in the past year? 1 or 2 drinks (0 point) How often did you have 6 or more drinks on one occasion in the past year? Never (0 point) Points 1 Interpretation Negative Problems Problem Type SNOMED Code ICD Code Onset Dates Problem Status W/U Status Risk Notes Problem 133202073 Tubular adenoma (D36.9) Active confirmed Problem Long-term current use of anticoagulant (951394838) retirement (current) use of anticoagulants (Z79.01) Active confirmed Problem Chronic kidney disease (620598742) Chronic kidney disease, unspecified (N18.9) Active confirmed Problem Congestive heart failure (29360879) CHF (congestive heart failure) (I50.9) Active confirmed Problem 936905138 Paroxysmal atria l fibrillation (I48.0) Active confirmed Problem 88524726 Plantar fascial fibromatosis (M72.2) Active confirmed Problem Disorder of bone (34685963) Other specified disorders of bone, other site (M89.8X8) Active confirmed Problem 34475454 Coronary artery disease (I25.10) Active confirmed Problem 57114174 Diabetes (E11.9) Active confirmed Problem 66951294 Essential hypert ension (I10) Active confirmed Problem 760351384 Mild intermitten t asthma without complication (J45.20) Active confirmed Problem 04749890 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) Active confirmed Problem 652434543 Low HDL (under 4 0) (E78.6) Active confirmed Problem 943477691 Morbid obesity d ue to excess calories (E66.01) Active confirmed Problem 72767627 Heart murmur (R01.1) Active confirmed Problem 725547077 Barretts esophag us without dysplasia (K22.70) Active confirmed Problem 093941405 History of prost ate cancer (Z85.46) Active confirmed Problem 783552557549830 Carpal tunnel sy ndrome of right wrist (G56.01) Active confirmed Problem 85696200 Sciatica of left side (M54.32) Active confirmed Problem 69774261 Obstructive slee p apnea (G47.33) Active confirmed Problem Iron deficiency anemia (11904750) Iron deficiency anemia, unspecified iron deficiency anemia type (D50.9) Active confirmed Problem Hearing loss (38439960) Hearing loss (H91.90) Active confirmed Problem 54530571 Sciatica of righ t side (M54.31) Active confirmed Problem 796960321 Pure hypercholesterolemia (E78.00) Active confirmed Problem Chronic systolic heart failure (160933688) Chronic systolic heart failure (I50.22) Active confirmed Problem 111380204 Body mass index (BMI) of 40.0 to 44.9 in adult (Z68.41) Active confirmed Problem 87089149 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 difficile nancy rrhea (A04.72) Active confirmed Problem 216501654 Stage 3 chronic kidney disease, unspecified whether stage 3a or 3b CKD (N18.30) Active confirmed Problem 83421315 Tachycardia, paroxysmal (I47.9) Active confirmed Problem 455486697 Diabetic hypogly cemia (E11.649) Active confirmed Problem 60017747 Ulcer of left lo wer extremity, unspecified ulcer stage (L97.929) Active confirmed Problem 6138714592 Neuroendocrine t umor (D3A.8) Active confirmed Vital Signs Blood pressure diastolic 74 mm Hg 06/15/2025 ari ght is dwn 13 pounds since 05-10-25 Height 66.5 in 06/15/2025 weight is dwn 1 3 pounds since 05-10-25 Blood pressure systolic 122 mm Hg 06/15/2025 weig ht is dwn 13 pounds since 05-10-25 Weight 217 lbs 06/15/2025 weight is dwn 1 3 pounds since 05-10-25 BMI 34.5 kg/m2 06/15/2025 weight is dwn 1 3 pounds since 05-10-25 Encounters Encounter Location Date Provider Diagnosis Domenic Beckham MD [address] [place] [id number] 01/29/2025 Domenic Beckham Diabetes E11.9 ; Ess ential hypertension I10 ; Pure hypercholesterolemia E78.00 and Stage 3 chronic kidney disease, unspecified whether stage 3a or 3b CKD N18.30 Domenic Beckham MD [address] [place] [id number] 08/10/2025 Domenic Beckham Pure hypercholestero lemia E78.00 and Elevated PSA R97.20 Domenic Beckham MD [address] [place] [address] [id number] 08/17/2024 Domenic Beckham Diabetic hypoglycemi a E11.649 ; Ulcer of left lower extremity, unspecified ulcer stage L97.929 ; Neuroendocrine tumor D3A.8 and Encounter for immunization Z23 Domenic Beckham MD [address] [place] [address] [id number] 11/20/2024 Domenic Beckham Diabetes E11.9 ; Sta ge 3 chronic kidney disease, unspecified whether stage 3a or 3b CKD N18.30 and Neuroendocrine tumor D3A.8 Domenic Beckham MD [address] [place] [address] [id number] 02/06/2025 Domenic Beckham Obstructive sleep ap lennox G47.33 ; Diabetes E11.9 ; Morbid obesity due to excess calories E66.01 ; Essential hypertension I10 ; Chronic systolic heart failure I50.22 ; Iron deficiency anemia, unspecified iron deficiency anemia type D50.9 ; Paroxysmal atrial fibrillation I48.0 and History of prostate cancer Z85.46 Domenic Beckham MD [address] [place] [address] [id number] 05/10/2025 Domenic Beckham Type 2 diabetes eligio itus with diabetic neuropathy E11.40 and Back pain M54.9 Domenic Beckham MD [address] [place] [address] [id number] 06/15/2025 Domenic Beckham Type 2 diabetes eligio itus with diabetic neuropathy E11.40 ; CHF (congestive heart failure) I50.9 and Back pain M54.9 Domenic Beckham MD [address] [place] [address] [id number] 06/11/2025 Domenic Beckham MD [address] [place] [address] [id number] 06/11/2025 Domenic Beckham Pneumonia J18.9 Domenic Beckham MD [address] [place] [address] [id number] 11/23/2024 Domenic Beckham MD [address] [place] [address] [id number] 01/03/2025 Domenic Beckham MD [address] [place] [address] [id number] 02/12/2025 Domenic Beckham MD [address] [place] [address] [id number] 03/29/2025 Domenic Beckham MD [address] [place] [address] [id number] 05/24/2025 Domenic Beckham MD [address] [place] [address] [id number] 06/05/2025 Domenic Beckham MD [address] [place] [address] [id number] 06/11/2025 Domenic Beckham MD [address] [place] [address] [id number] 06/14/2025 Domenic Beckham MD [address] [place] [address] [id number] 06/23/2025 Domenic Beckham Assessments Encounter Date Diagnosis (ICD Code) Assessment Notes Treatment Notes Treatment Clinical Notes Section Notes 01/29/2025 Diabetes (ICD-10 - E11.9) 08/10/2025 Pure hypercholesterolemia (ICD-10 - E78.00) 08/10/2025 Elevated PSA (ICD-10 - R97.20) 08/17/2024 Diabetic hypoglycemi a (ICD-10 - E11.649) patient verbalized understanding of change in dose of medication 08/17/2024 Ulcer of left lower extremity, unspecified ulcer stage (ICD-10 - L97.929) had bad veins but notdhing can be done. going to wound clinic 11/20/2024 Diabetes (ICD-10 - E11.9) doing well with good a1c 11/20/2024 Stage 3 chronic kidn ey disease, unspecified whether stage 3a or 3b CKD (ICD-10 - N18.30) has gotten a little worse. / will contact dr cr as he is due for follow 02/06/2025 Obstructive sleep ap lennox (ICD-10 - G47.33) using cpap nightly 02/06/2025 Diabetes (ICD-10 - E11.9) 05/10/2025 Type 2 diabetes mellitus with diabetic neuropathy (ICD-10 - E11.40) 05/10/2025 Back pain (ICD-10 - M54.9) has had some injections with some relief. for years i have tried to get him to do some activity and he has found recently that if he does a little activity on his exercise equipment that he does better. have given him cudos on that and encouraged him to continue in that effort 06/15/2025 Type 2 diabetes mellitus with diabetic neuropathy (ICD-10 - E11.40) 06/15/2025 CHF (congestive hear t failure) (ICD-10 - I50.9) is doing well at present. will go back to his previous dose of lasix 06/11/2025 Pneumonia (ICD-10 - J18.9) Order made and mailed to the patient to be done in 1 week. 01/29/2025 Essential hypertensi on (ICD-10 - I10) 08/17/2024 Neuroendocrine tumor (ICD-10 - D3A.8) is getting a pet scan. being seen by oncology 11/20/2024 Neuroendocrine tumor (ICD-10 - D3A.8) is just going to do watchful waiting 02/06/2025 Morbid obesity due t o excess calories (ICD-10 - E66.01) not doing well with diet 06/15/2025 Back pain (ICD-10 - M54.9) is going to get an injection in spine soon 01/29/2025 Pure hypercholesterolemia (ICD-10 - E78.00) 08/17/2024 Encounter for immunization (ICD-10 - Z23) flu vaccine administered 02/06/2025 Essential hypertensi on (ICD-10 - I10) stable, will continue current regiment 01/29/2025 Stage 3 chronic kidn ey disease, unspecified whether stage 3a or 3b CKD (ICD-10 - N18.30) 02/06/2025 Chronic systolic hea rt failure (ICD-10 - I50.22) stable, will continue current regiment 02/06/2025 Iron deficiency anem ia, unspecified iron deficiency anemia type (ICD-10 - D50.9) stable, will contiue current regiment 02/06/2025 Paroxysmal atrial fibrillation (ICD-10 - I48.0) doing well, will contiue current regiment 02/06/2025 History of prostate cancer (ICD-10 - Z85.46) still with no evidence of recurrence Plan Of Treatment Pending Test Test Name Order Date Electrocardiogram (EKG) 12/03/2017 MRI ABD W&WO CONTRAST 01/31/2024 XR CHEST 2 VIEW PA & LAT 09/18/2022 Liver Panel 08/10/2025 Lipid Panel with Reflex 08/10/2025 PSA,Total (Free>4and<10) 08/10/2025 NM bone scan whole body 01/31/2024 NE electromyogram (EMG) 01/11/2023 XR chest 2V 06/11/2025 Future Test Test Name Order Date NUC WHOLE BODY SCAN BONE 05/12/2020 Next Appt Details Provider Name:Domenicestela Devine ier, 10/26/2025 10:00:00 AM, [address] [place] [address], [address], [place], [place], [phone], Provider Name:Domenic Redding Nilson ier, 02/04/2026 08:00:00 AM, [address] [place] [address], [address], [place], [place], [phone], Provider Name:Domenic Vahid Nilson ier, 02/11/2026 02:30:00 PM, [address] [place] [address], [address], [place], [place], [phone], Insurance Providers Payer Name Payer Address Payer Phone Subscriber Number Group Number Insured Name Patient Relationship to Insured Coverage Start Date Coverage End Date [employer] [address] [place] [address] [id number] Owen Licea Self - patient is the insured [facility] CARE Service [facility] [employer] [address] [place] [address] [id number] Owen Licea Self - patient is the insured Medical (General) History Medical History History ICD Code colonoscopy 12/2011 due in 5; colonoscopy done 12/02/16 w/Dr. fuentes colonoscopy done 10/2020 upper endo 12/2011 due in 3; endoscopy sc heduled for 12/02/16 w/Dr. Bardales 03/2014 - Suspicious mole which was remov ed from foot with moderate dysplasia cr/cl is over 100
[2025-08-10 12:33] LABS: Reflex LDLD? No
== END 2025-08-10 10:33 | disposition home or self-care (01) ==
LOC: HO.LNP 10:32
PROVIDERS: Visit Provider Internal Medicine
DX: Z12.5 Encounter for screening for malignant neoplasm of prostate (principal); R97.20 Elevated prostate specific antigen [PSA]; E78.00 Pure hypercholesterolemia, unspecified
CPT/HCPCS: 80061; 80076; 84153

== ENCOUNTER 2025-09-28 10:21 | Outpatient (AMB) | payer MEDICARE, OTHER, SELFPAY ==
--- NOTE | 2025-09-28 11:03 | HO.SPINEOV ---
Vital Signs 09/28/25 11:04 Height 5 ft 9 in Weight 215 lb BMI 31.7 Intake Visit Reasons: LBP Intake Note: Mr. Licea is here today c/o Low back pain. MRI done at [facility]. 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 This is a very nice 80-year-old gentleman with a history of coronary artery disease, hypertrophic cardiomyopathy, AFib on Coumadin, pacemaker, valvular disease, presents with 10 years of back pain. He had an MRI done showing lumbar stenosis at L3-4 and degenerative disc disease and was referred to us for an evaluation. He has been through conservative management in the forms of physical therapy and cortisone injections. PMH: He is a fairly extensive medical history including hypertension, diabetes. He tells me his A1c is generally in the 5 range. He has history of chronic kidney disease, systolic heart failure, AFib, ventricular tachycardia, status post pacemaker, valvular disease, coronary artery disease. Asthma, prostate cancer, sleep apnea, obesity, neuroendocrine tumor, ulcer in his left lower extremity Social hx: Does not smoke, drink use any recreational drugs Medications: Lasix, Lipitor, Synjardy, lisinopril, amlodipine, metoprolol, vitamin-C, vitamin-B, multivitamin, gabapentin, Flonase Allergies: None Physical exam: Awake alert oriented no acute distress, slow to stand up out of a chair, gait is slow, stride length is short, strength in lower extremities is full, reflexes absent. Imaging review: Lumbar MRI done at [facility] shows [id number] degenerative disc disease at L3-4 with moderate to severe central canal stenosis as the major pertinent finding. Impression: 80-year-old gentleman with chronic low back pain presents for evaluation of MRI showing [id number] degenerative disc disease and lumbar stenosis L3-4. Although he does have the stenosis at L3-4, he does not have the classic stenosis symptoms of claudicating leg pains. Therefore this finding is probably in some degree incidental and asymptomatic. He does have [id number] degenerative disc disease but as we know, surgery to correct [id number] disc problems generally does not yield high benefit in terms of overall long-term improvement after surgery. Because of all of his medical comorbidities and the fact that Dr. Dumont is not think he will have significant improvement from surgery on the degenerative disc, we do not think he is a good surgical candidate. He can follow up with pain management. Thank you for allowing us to care for your patient. The total time spent with this visit with this patient was 45 minutes reviewing history, physical exam, lumbar imaging review, and implementation of treatment plan or further diagnostic testing Vasquez Dumont MD,PhD [facility] Coding Level of Care Code New Pt Level 4 (07412) Diagnoses Back pain M54.9
[2025-09-28 11:04] VITALS: BMI 31.7
== END 2025-09-28 13:12 | disposition home or self-care (01) ==
LOC: HO.HNS 10:21
PROVIDERS: PCP Internal Medicine; Referring Provider Internal Medicine; Visit Provider Physician Assistant
DX: M54.9 Dorsalgia, unspecified (principal)
CPT/HCPCS: 99204

== ENCOUNTER → 2025-09-28 10:21 | Outpatient (BNVA) | payer MEDICARE, OTHER, SELFPAY | PROVIDERS: PCP Internal Medicine; Referring Provider Internal Medicine; Visit Provider Physician Assistant | DX: M54.9 Dorsalgia, unspecified (principal); Z79.01 Long term (current) use of anticoagulants; Z95.0 Presence of cardiac pacemaker | CPT/HCPCS: 99202 ==